=== PATIENT | male | born 1940 | race Caucasian/White ===

== ENCOUNTER 2017-04-12 13:00 | Outpatient (RCR) | payer MEDICARE, BC ==
--- NOTE | 2017-02-02 10:04 | PT PLAN OF CARE ---
Physician: NELY Dowling Patient is being seen:2x/Week Therapist: Greer Waterman, PT, DPT, CLT Medical Diagnosis: Mesothelioma of Lungs, Prostate Cancer Treatment Diagnosis: Mesothelioma of Lungs, Prostate Cancer Date of Onset: 10/30/16 Date of Initial Evaluation: 11/02/16 Date patient was last seen: 02/01/17 Number of treatments: 17 Number of cancellations/No shows: 3 INTERVENTIONS: Manual Therapy/STM/MET Strengthening/condition Ice/Heat Range of Motion Spinal Stabilization Ultrasound Stretching Iontophoresis Neuromuscular Re-ed Closed Chain Program Electrical Stim Posture/Body mechanics Gait Trg/Balance Trg Biofeedback Home Exercise Program Mech./Manual Traction Therapeutic Activities Pelvic Floor GOALS: In 3 weeks pt will increase 6 min walk distance to >250 meters indicating increased functional endurance for ADL's and decreased fatigue. In Progress In 6 weeks pt will increase 6 min walk distance to >350 meters indicating increased functional endurance for ADL's and decreased fatigue. In Progress In 6 weeks pt will maintain and increase B LE strength at > 5/5 for all major muscle groups for increased ability to perform ADL's. MET PATIENT'S GOAL:Maintain function throughout oncology treatment, decrease fatigue. Maintain current weight Status of Patient's Goals: In Progress Patient Compliance: Good Prognosis: Good Reasons for continuing therapy: Nate shows good improvement with maintaining oxygen saturation >75 with continual exercise at low-moderate intensities. Pt recovery time is quicker regarding oxygen saturation though HR recovery remains slow. Endurance, strength and stability with ADL's and ambulation shows improvements, but are dependent on oxygen levels. Posture: Posture unremarkable. ROM: WFL. Strength: UE MMT: 5/5 for all major muscle groups B. LE MMT: 5/5 for all major muscle groups B Objective: Pt O2 fluctuating throughout session from 73%-94% associated with pt fatigue. If you have any questions or concerns, please feel free to contact me at . Thank you, Greer Waterman, PT, DPT, CLT MTDD
[~2017-04-12 13:00] MED LIST: ACET-1966 PO; ACET-3079 PO; ALB0.5 IH; ALBU0.636 IH; ALBU8.5H12 IH; AMOX-362 PO; ASPI-757 PO; ASPI-816 PO; ATOR20TA22 PO; ATOR20TA65 PO; AZIT-1 PO; BIFI4CAP2 PO; CEP500 PO; CYAN1000 IJ; CYAN1LOZ2 SL; DEX4 FT; DEX4 PO; DIGO250T80 PO; DILT-106 PO; DRON2.5C11 PO; ESOM40CA42 PO; FLUT1DIS28 IH; FOLI-68 PO; FURO-47 PO; FURO40TA35 PO; GUAI1200 PO; LEV500 PO; LEVO750T44 PO; LOR1 PO; LOR75 PO; LORA-1456 PO; MAGN250T26 PO; NO ROUTINE MEDS; OND4 PO; PANT40TA65 PO; POTA20TA94 PO; PRED-1 PO; PROC25SU3 PO; PYRI100T57 PO; RANI150C17 PO; RIVA20TA PO; SIM10 PO; TAMS0.4C25 PO; TIO18R INH; UMEC1DIS PO
== END 2017-04-12 18:00 | disposition home or self-care (01) ==
LOC: PT 13:00
PROVIDERS: ATTEND Nurse Practitioner Family
DX: M62.81 Muscle weakness (generalized) (principal); R53.83 Other fatigue; C45.0 Mesothelioma of pleura; C61 Malignant neoplasm of prostate; R63.4 Abnormal weight loss; G62.9 Polyneuropathy, unspecified; Z92.3 Personal history of irradiation; Z92.21 Personal history of antineoplastic chemotherapy; R06.02 Shortness of breath; Z99.81 Dependence on supplemental oxygen

== ENCOUNTER 2017-05-31 09:13 | Outpatient (RCR) | payer MEDICARE, BC ==
[2017-03-19 11:01] VITALS: BP 126/81
--- NOTE | 2017-03-19 16:20 | RADIOLOGY IMAGING REPORT ---
FACILITY: [facility] [place] PATIENT NAME: Nate Mathew : 1940 MR: [id number] V: [id number] EXAM DATE: ORDERING PHYSICIAN: NEIDA PENNY TECHNOLOGIST: Location: [facility] Patient: Nate Mahtew : 1940 Visit/Account:[id number] Date of Sevice: 03/19/2017 CT angiogram chest with contrast Indication: Mesothelioma. Decreased oxygen saturation. Comparison: 09/22/2013. CT the chest from [facility] on 02/15/2017. Technique: Axial CT images are obtained through the chest after administration of 100 mL Isovue 370 I V contrast. Reformatted coronal and sagittal images were reviewed as well as coronal MIP images. One of the following dose optimization techniques was utilized in the performance of this exam: auto mated exposure control; adjustment of the mA and/or kV according to the patient's size; or use of an iterative reconstruction technique. Specific details can be referenced in the facility's radiology C T exam operational policy. FINDINGS: No evidence of filling defect within the pulmonary vasculature to suggest pulmonary embolus. Heart is normal size without pericardial effusion. Mild coronary artery calcifications. The aorta arias ws mild atherosclerotic calcific changes without aneurysm or dissection. Right hilar region shows a 2 .3 x 1.7 cm lymph nodes which appears relatively stable. The mediastinum and hilar show a few small l ymph nodes which appears stable as well including the right pretracheal lymph node measuring 2.0 x 0. 9 cm. No new or enlarged lymph nodes. The lungs again show diffuse emphysematous changes. There is mild right basal atelectasis. No focal c onsolidation, pleural effusion or pneumothorax. There are scattered pleural calcifications again iden tified without discrete pleural based masses. No focal interstitial opacity. The left lung, along the fissure, measuring 4.5 mm and is stable. This is seen on image #50. The other previously described n odules are not well appreciated on this exam. The airways are clear. The bony structures show no acute fracture or discrete lesions. Chest wall shows no enlarged axillary lymph nodes or masses. Stable right adrenal gland nodule measuring 1.6 cm. The upper abdomen is otherwise unremarkable. IMPRESSION: 1. No evidence of pulmonary embolus. 2. No acute cardiothoracic abnormality 3. Mild right basal atelectasis, relatively stable. There is continued bilateral pleural calcificatio ns. No discrete pleural based masses. Stable small adenopathy in the mediastinum and hilar regions. 4. Stable right adrenal gland nodule. 5. Stable left lung nodule. The other nodules described are not appreciated on this exam. I called report to NEIDA PENNY at 03/19/2017 4:15 PM. Report Dictated By: Gopal Sarmiento at 03/19/2017 3:58 PM Report E-Signed By: Gopal Sarmiento at 03/19/2017 4:16 PM WSN:[id number]
--- NOTE | 2017-03-22 19:12 | [facility] ONCOLOGY NOTE ---
DATE OF VISIT: March 19, 2017 CHIEF COMPLAINT/REASON FOR VISIT Mr. Mathew is a pleasant 77-year-old gentleman with mesothelioma responding to pembrolizumab (cycle eight scheduled for 10 days from now), here with hypoxia, shortness of breath. HISTORY OF PRESENT ILLNESS Mr. Mathew returns. He had imaging approximately four weeks ago for his seventh cycle of pembrolizumab, which showed response to therapy. This was quite encouraging. Today he presents with hypoxia with his oxygen saturation of 74% on 3L, up to 90% on 6L. He has known COPD. He receives the pembrolizumab and feels better for about a week, but then progressively worsens during his two off weeks. This suggests a potential need for steroids. However , given his current cancer and the extreme low level of hypoxia despite his home oxygen, I believe he needs to go to the emergency room for further evaluation to rule out pulmonary emboli, pneumonia or other issue. In the week preceding this visit today he felt like he was getting a cold, but then it has worsened today. He felt short of breath with some chest tightness when he came in. This resolved with rest. ONCOLOGIC HISTORY His oncologic history is remarkable for a [place] 6 prostate cancer diagnosed in 2007, treated with seed implants, external beam radiation therapy. On 2 separate events he had a slight rise in his PSA and we will follow this. He has COPD and continues on 3L of O2 by nasal cannula. No other concerns today. PAST MEDICAL/SURGICAL HISTORIES 1. Mesothelioma of the lung, status post five cycles of carboplatin and pemetrexed, and talc pleurodesis. 2. Macrocytosis. 3. COPD. 4. Renal insufficiency. 5. [place] 6 prostate cancer treated with radiation. He had a rising PSA in 2011 and received additional radiation. 6. Hypercholesterolemia. 7. Former smoker. FAMILY HISTORY Remarkable for prostate cancer and lymphoma. SOCIAL HISTORY The patient is . He presented with his today. 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 He used to work in the [employer] as well. REVIEW OF SYSTEMS CONSTITUTIONAL: No fevers, chills, but felt he has been fighting a cold, with clear drainage, for the last week. SKIN: Athlete's foot resolved. No concerning lesions HEENT: No headache. He does have visual changes consistent with macular degeneration, particularly in the right eye. CARDIOVASCULAR: No chest pain, dyspnea on exertion or edema. RESPIRATORY: No shortness of breath, wheeze, cough out of the ordinary. He does have chronic respiratory issues, on oxygen. He does feel he is needing more oxygen now than he did six months ago. His lungs are very clear on exam, however. GASTROINTESTINAL: No nausea, vomiting. GENITOURINARY: No dysuria or hematuria. MUSCULOSKELETAL: No weakness or significant joint pain. PSYCHIATRIC: No anxiety or depression. ENDOCRINE: No heat or cold intolerance. PHYSICAL EXAMINATION VITAL SIGNS: Blood pressure 126/81. Pulse 93 after rest. It was 102 upon initial presentation to the clinic. Respiratory rate 18, temperature 96.9 Fahrenheit, oxygen saturation 90% on 6L, 74% on 3L. Weight 97.4 kg, fatigue 5/ 10, pain 0/10. GENERAL: In stable condition, resting comfortably in the chair. Chronically ill-appearing gentleman. HEENT: Normocephalic, atraumatic. LUNGS: Clear. Prolonged expiratory phase with some mild use of accessory muscles with deep inspiration. He felt better on 6L, but still needed to go to the emergency room to rule out PE or other causes. He may require some neb steroids for COPD or systemic steroids. In that case I would defer to Dr. West to assess and prescribe what is needed for his COPD. His imaging suggests he is responding, so I do not believe this is related to cancer or its treatment. CARDIOVASCULAR: Borderline tachycardia. ABDOMEN: Soft, nontender. EXTREMITIES: No significant edema. The remainder of the physical exam is unremarkable. IMPRESSION AND PLAN Mr. Mathew is a very pleasant 77-year-old gentleman with the followin. Distant history of prostate cancer. 2. Recurrent mesothelioma on pembrolizumab. Cycle eight is later this month. He had received chemotherapy with carboplatin and pemetrexed in 2012, as well as radiation in early 2017. He is responding on imaging in [place] 2017. 3. Chronic obstructive pulmonary disease on chronic O2 with a potential COPD exacerbation today. Sent to the ER. 4. Chronic mild renal insufficiency. I answered all of his questions today. He needs to go to the ER currently. We will see him back in clinic in 10 days, hopefully for his next dose. I think most likely this is a COPD exacerbation, but would consider trying to rule out PE. We recommend followup with his primary care for his COPD. I answered all of his questions today. Billing: Return visit level 5. Total time 45 minutes, counseling time 30. High risk, high complexity. SEAN
[2017-03-29 10:58] LABS: PLATELET COUNT, AUTOMATED 209 K/uL (150-450)
[2017-03-29 11:07] VITALS: BP 107/80
[2017-03-29] MEDS: NS(*) 0.9% 100 ML BAG 100 ML IVPB PRN (11:26)
[2017-03-29] MEDS: LIDOCAINE/SOD BICARB 8.4% SYR ID PRN (11:26)
--- NOTE | 2017-03-29 11:40 | ONC Progress Note - NP.Halsey ---
Patient History Date of Service Mar 29, 2017 Reason For Visit/HPI Patient is seen in the clinic today with his for follow-up of his mesothelioma. Patient is currently receiving Keytruda and will receive cycle 8 today. Patient was seen in the emergency room one week ago for hypoxia and shortness of breath. CT angiogram was without evidence of a clot. Patient was started on antibiotic therapy. He reports that he is feeling better today. He always has shortness of breath but this is improved from last week. Patient asks with the plan of care is long-term. I shared with him that maintenance of disease and possibly shrinking disease would be the long-term goal. He verbalized understanding. Patient continues to have internal itching which is a side effect of the Keytruda. He is currently taking Claritin which helps some. The itching moves from one area to another in his body. He has no external rash. Problem List (1) Mesothelioma Oncology History Recurrent mesothelioma currently on Keytruda. Patient received chemotherapy with carboplatin and pemetrexed in 2012, as well as radiation therapy in 2016. Patient follows with Dr. Kiser. Distant history of prostate cancer, [place] 6 diagnosed in 2007. Patient completed brachytherapy seed implant and external beam radiation therapy on 2 separate events he had an elevation of the PSA. We will continue to monitor Medical History Family History: FH: lymphoma BROTHER OR SISTER, , Onset:43 FH: prostate cancer FATHER, , Onset:71 BROTHER OR SISTER, Onset:64 Psychosocial History Smoking History: Yes Smoking Status: Former Smoker Exposure to Second Hand Smoke?: No When Quit Tobacco?: 12-14 years ago Medications and Allergies Active Scripts Levofloxacin 750 Mg Tab (LEVAQUIN 750 MG TAB) 750 Mg Tablet, 750 MG PO ONCE for 7 Days, TAB Prov:MILAGROS KRISHNAMURTHY MD 03/19/17 Umeclidinium Brm/Vilanterol Tr (Anoro Ellipta 62.5-25 Mcg INH) 1 Each Disk.w.dev , 65.2 MCG PO DAILY for 60 Days, #120 MG 6 Refills Prov:FOREIGN GUERRERO LOBBY CONCIERGE-BC, ONC 02/14/17 Lorazepam (LORAZEPAM) 1 Mg Tab, 1 TAB PO PRN Y for ANXIETY, #60 TAB Prov:ANKIT RENEE MD 06/22/15 Folic Acid (FOLIC ACID) 1 Mg Tablet, 1 MG PO DAILY, #90 TAB 3 Refills Prov:ANKIT RENEE MD 12/17/14 Albuterol Sulfate (ALBUTEROL SULFATE) 2.5 Mg/0.5 Ml Vial.neb, 2.5 MG IH Q6H, #30 Prov:MILADYS HUANG DO 09/22/13 Reported Medications Pantoprazole Sodium (PANTOPRAZOLE SODIUM) 40 Mg Tablet.dr, 40 MG PO QDAY, TAB.SR 06/19/16 Guaifenesin (MUCINEX) 1,200 Mg Tbmp.12hr, 1200 MG PO PRN 03/23/15 Aspirin (Children's Aspirin) 81 Mg Tab.chew, 1 TAB PO BID 03/23/15 Atorvastatin Calcium (ATORVASTATIN CALCIUM) 20 Mg Tablet, 1 TAB PO QDAY, TAB 03/23/15 Albuterol Sul Hfa 90 Mcg 8 Gm (VENTOLIN HFA 90 MCG 8 GM) 8.5 Gm Hfa.aer.ad, 2 PUFF IH Q6H 09/22/13 Bifidobacterium Infantis (ALIGN) 4 Mg Capsule, 4 MG PO QDAY, CAPSULE 05/02/13 Acetaminophen (TYLENOL) 325 Mg Tablet, 325-650 MG PO Q6H Y for PAIN Take as needed for mild pain relief 03/07/13 Pyridoxine Hcl (VITAMIN B-6) 100 Mg Tablet, 100 MG PO BID 10/31/12 Tamsulosin Hcl (FLOMAX) 0.4 Mg Cap.er.24h, 0.4 MG PO QODAY 09/25/12 Allergies: Coded Allergies: No Known Allergies (Verified Allergy, Unknown, 03/19/17) Review of System/Physical Exam Review of Systems All Systems Reviewed/Normal: Yes, Except as Noted Constitutional: Positive for Fever/Chills/Sweating (patient recently completed antibiotic therapy for a pneumonitis) Respiratory: Positive for Shortness of Breath (currently on oxygen therapy) Hematologic: Positive for Fatigue, Positive for Weakness Musculoskeletal: Positive for Other (previous back pain has resolved) Skin: Positive for Other (itching of the skin which is a side effect of Keytruda without evidence of a skin rash) Physical Exam Vital Signs Temperature: 97.7 Pulse: 65 BP Systolic: 107 BP Diastolic: 80 Respiratory Rate: 16 O2 SAT: 95 O2 Delivery: Nasal Cannula Height (inches) 71.00 Weight lb: 209 Weight oz: 2.0 Weight Kg (Vance): 98.03 Pain: 0 ECOG Score: 1 General: Stable, Well Developed, Well Nourished, Not In Acute Distress HEENT: No Trauma, No Conjunctivitis, No Icterus, No Mucositis, No Oral Thrush Neck: Supple Lungs: Clear to Auscultation Heart: Regular Rate, Regular Rhythm, No Gallops Abdomen: Soft and Nontender, No Hepatosplenomegaly, No Masses Extremities: No Cyanosis, No Clubbing, No Edema Lymphadenopathy: No Cervical, No Subclavicular Psychiatric: Mood appears normal, Affect appears normal Skin: No Skin Rashes, No Bruising, No Purpura Diagnostic Studies Diagnostic Studies Laboratory Laboratory Tests 03/29/17 10:45 Laboratory Tests 03/19/17 00:00: Urine Color Yellow, Urine Clarity Clear, Urine pH 5.0, Urine Specific [place] 1.036, Urine Protein Negative, Urine Glucose (UA) Negative, Urine Ketones Negative, Urine Blood Negative, Urine Nitrite Negative, Urine Bilirubin Negative , Urine Urobilinogen Negative, Urine Leukocyte Esterase Negative, Urine RBC 6, Urine WBC <1, Urine Squamous Epithelial Cells None, Urine Bacteria Negative, Urine Mucus Few 03/29/17 10:45: White Blood Count 7.3, Red Blood Count 4.17, Hemoglobin 14.8, Hematocrit 42.4, Mean Corpuscular Volume 101.6, Mean Corpuscular Hemoglobin 35.4, Mean Corpuscular Hemoglobin Concent 34.8, Red Cell Distribution Width 13.9, Platelet Count 209, Mean Platelet Volume 7.7, Neutrophils (%) (Auto) 77.3, Lymphocytes (% ) (Auto) 13.0, Monocytes (%) (Auto) 5.3, Eosinophils (%) (Auto) 3.0, Basophils ( %) (Auto) 1.4, Nucleated RBC Relative Count (auto) 0.0, Neutrophils # (Auto) 5.6 , Lymphocytes # (Auto) 0.9, Monocytes # (Auto) 0.4, Eosinophils # (Auto) 0.2, Basophils # (Auto) 0.1, Nucleated RBC Absolute Count (auto) 0.00, Peripheral Blood Smear No, Sodium Level 137, Potassium Level 4.0, Chloride Level 104, Carbon Dioxide Level 22, Blood Urea Nitrogen 22, Creatinine 1.20, Glomerular Filtration Rate Calc 58.9, Random Glucose 99, Calcium Level 8.9, Magnesium Level 1.9, Total Bilirubin 0.8, Aspartate Amino Transf (AST/SGOT) 31, Alanine Aminotransferase (ALT/SGPT) 37, Alkaline Phosphatase 130, Total Protein 7.2, Albumin 3.7, Free Thyroxine 1.34 Assessment and Plan Assessment & Plan Mr. Mathew is a very pleasant 77-year-old gentleman with the followin. Distant history of prostate cancer status post brachytherapy seed implant and external beam radiotherapy. PSA in December was 1.79, prior to that was 1.38. We'll continue to monitor and draw PSA with his next labs. Patient will be seen with his next treatment 2. Recurrent mesothelioma on pembrolizumab. Cycle eight is later this month. He had received chemotherapy with carboplatin and pemetrexed in 2012, as well as radiation in early 2016. He is responding on imaging in 2016. Patient is scheduled to follow with Dr. Kiser on April 19 and will receive Keytruda on April 20. 3. Chronic obstructive pulmonary disease on chronic O2 with a potential COPD exacerbation. Patient recently completed antibiotic therapy. CT angiogram was unremarkable other then previously known disease 4. Chronic mild renal insufficiency. This is monitored with his chemistry panel prior to treatment I personally spent a total of 20 minutes. Of that 15 minutes was counseling/ coordination of patient's care. See my note above for details. Copies to: CORETTA GUAMAN MD, NANCY J LOBBY CONCIERGE-BC, ONC Mar 29, 2017 11:40
[2017-03-29 12:07] VITALS: BP 119/68
[2017-04-20 09:56] VITALS: BP 125/74
[2017-04-20] MEDS: LIDOCAINE/SOD BICARB 8.4% SYR ID PRN (10:56)
--- NOTE | 2017-04-20 10:56 | ONC Progress Note - NP.Halsey ---
Patient History Date of Service Apr 20, 2017 Reason For Visit/HPI Patient is seen in the clinic today with his for follow-up of his mesothelioma. Patient is currently receiving Keytruda and will receive cycle 9 today. Patient shares that he recently followed with Dr. Kiser in [place] and the plan of care is to continue with the same treatment. Patient reports that CT scan showed a slight improvement in his overall disease. Patient verbalized understanding that treatment with Keytruda is a very slow process. Patient reports that he is currently on 4 L of oxygen and is having shortness of breath. He is not sure if this is increased. He did have upper respiratory symptoms approximately 3 weeks ago. Patient denies any symptoms from Keytruda other than internal itching without any extranodal rash. Patient continues to take Claritin with some relief. Problem List (1) Mesothelioma Oncology History Recurrent mesothelioma currently on Keytruda. Patient received chemotherapy with carboplatin and pemetrexed in 2012, as well as radiation therapy in 2016. Patient follows with Dr. Kiser. Distant history of prostate cancer, Narcisa 6 diagnosed in 2007. Patient completed brachytherapy seed implant and external beam radiation therapy on 2 separate events he had an elevation of the PSA. We will continue to monitor Medical History Family History: FH: lymphoma BROTHER OR SISTER, , Onset:43 FH: prostate cancer FATHER, , Onset:71 BROTHER OR SISTER, Onset:64 Psychosocial History Social History Patient is and is retired. Alcohol History He denies any abuse Recreational Drug History He denies use Smoking History: Yes Smoking Status: Former Smoker Exposure to Second Hand Smoke?: No When Quit Tobacco?: 12-14 years ago Medications and Allergies Active Scripts Levofloxacin 750 Mg Tab (LEVAQUIN 750 MG TAB) 750 Mg Tablet, 750 MG PO ONCE for 7 Days, TAB Prov:MILAGROS KRISHNAMURTHY MD 03/19/17 Umeclidinium Brm/Vilanterol Tr (Anoro Ellipta 62.5-25 Mcg INH) 1 Each Disk.w.dev , 65.2 MCG PO DAILY for 60 Days, #120 MG 6 Refills Prov:FOREIGN GUERRERO GASOLINE FINISHER-BC, ONC 02/14/17 Lorazepam (LORAZEPAM) 1 Mg Tab, 1 TAB PO PRN Y for ANXIETY, #60 TAB Prov:NAKIT RENEE MD 06/22/15 Folic Acid (FOLIC ACID) 1 Mg Tablet, 1 MG PO DAILY, #90 TAB 3 Refills Prov:ANKIT RENEE MD 12/17/14 Albuterol Sulfate (ALBUTEROL SULFATE) 2.5 Mg/0.5 Ml Vial.neb, 2.5 MG IH Q6H, #30 Prov:MILADYS HUANG DO 09/22/13 Reported Medications Pantoprazole Sodium (PANTOPRAZOLE SODIUM) 40 Mg Tablet.dr, 40 MG PO QDAY, TAB.SR 06/19/16 Guaifenesin (MUCINEX) 1,200 Mg Tbmp.12hr, 1200 MG PO PRN 03/23/15 Aspirin (Children's Aspirin) 81 Mg Tab.chew, 1 TAB PO BID 03/23/15 Atorvastatin Calcium (ATORVASTATIN CALCIUM) 20 Mg Tablet, 1 TAB PO QDAY, TAB 03/23/15 Albuterol Sul Hfa 90 Mcg 8 Gm (VENTOLIN HFA 90 MCG 8 GM) 8.5 Gm Hfa.aer.ad, 2 PUFF IH Q6H 09/22/13 Bifidobacterium Infantis (ALIGN) 4 Mg Capsule, 4 MG PO QDAY, CAPSULE 05/02/13 Acetaminophen (TYLENOL) 325 Mg Tablet, 325-650 MG PO Q6H Y for PAIN Take as needed for mild pain relief 03/07/13 Pyridoxine Hcl (VITAMIN B-6) 100 Mg Tablet, 100 MG PO BID 10/31/12 Tamsulosin Hcl (FLOMAX) 0.4 Mg Cap.er.24h, 0.4 MG PO QODAY 09/25/12 Allergies: Coded Allergies: No Known Allergies (Verified Allergy, Unknown, 03/19/17) Review of System/Physical Exam Review of Systems All Systems Reviewed/Normal: Yes, Except as Noted Respiratory: Positive for Shortness of Breath (currently on 4 L per nasal cannula), Positive for Wheezing (occasional episodes) Hematologic: Positive for Fatigue (related to inactivity. He rates as a 6 out of 10 today which is relatively stable. Patient previously had been doing physical therapy and will try to do exercise on his own as he does feel better after he exercises.) Psychiatric: Depression (patient reports that he has had increased depression symptoms and Dr. Kiser has started him on a new medication.) Skin: Positive for Other (itching of the skin which is a side effect of Keytruda without evidence of a skin rash) Physical Exam Vital Signs Temperature: 97.0 Pulse: 79 BP Systolic: 125 BP Diastolic: 74 Respiratory Rate: 16 O2 SAT: 90 O2 Delivery: Nasal Cannula Height (inches) 72.00 Weight lb: 214 Weight oz: 2.0 Weight Kg (Vance): 98.03 Pain: 6 ECOG Score: 1 General: Stable, Well Developed, Well Nourished, Not In Acute Distress HEENT: No Trauma, No Conjunctivitis, No Icterus, No Mucositis Neck: Supple Lungs: Clear to Auscultation (breast sounds are slightly diminished in all lung hall with expiratory wheezing in all lung hall) Extremities: No Cyanosis, No Clubbing, No Edema Lymphadenopathy: No Cervical Psychiatric: Mood appears normal, Affect appears normal Skin: No Skin Rashes, No Bruising, No Purpura Diagnostic Studies Diagnostic Studies Laboratory Laboratory Tests 04/20/17 10:00 Laboratory Tests 03/19/17 00:00: Urine Color Yellow, Urine Clarity Clear, Urine pH 5.0, Urine Specific [place] 1.036, Urine Protein Negative, Urine Glucose (UA) Negative, Urine Ketones Negative, Urine Blood Negative, Urine Nitrite Negative, Urine Bilirubin Negative , Urine Urobilinogen Negative, Urine Leukocyte Esterase Negative, Urine RBC 6, Urine WBC <1, Urine Squamous Epithelial Cells None, Urine Bacteria Negative, Urine Mucus Few 03/29/17 10:45: Red Blood Count 4.17, Mean Corpuscular Volume 101.6, Mean Corpuscular Hemoglobin 35.4, Mean Corpuscular Hemoglobin Concent 34.8, Red Cell Distribution Width 13.9, Mean Platelet Volume 7.7, Monocytes (%) (Auto) 5.3, Eosinophils (%) (Auto) 3.0, Basophils (%) (Auto) 1.4, Nucleated RBC Relative Count (auto) 0.0, Monocytes # (Auto) 0.4, Eosinophils # (Auto) 0.2, Basophils # (Auto) 0.1, Nucleated RBC Absolute Count (auto) 0.00, Peripheral Blood Smear No 04/20/17 10:00: White Blood Count 8.0, Hemoglobin 14.7, Hematocrit 42.5, Platelet Count 204, Neutrophils (%) (Auto) 75.3, Lymphocytes (%) (Auto) 11.9, Neutrophils # (Auto) 6.0, Lymphocytes # (Auto) 1.0, Sodium Level 137, Potassium Level 3.8, Chloride Level 104, Carbon Dioxide Level 25, Blood Urea Nitrogen 25, Creatinine 1.10, Glomerular Filtration Rate Calc > 60.0, Random Glucose 115, Calcium Level 9.2, Magnesium Level 1.9, Total Bilirubin 0.9, Aspartate Amino Transf (AST/SGOT) 34, Alanine Aminotransferase (ALT/SGPT) 38, Alkaline Phosphatase 123, Total Protein 7.5, Albumin 3.9 Assessment and Plan Assessment & Plan Mr. Mathew is a very pleasant 77-year-old gentleman with the followin. Distant history of prostate cancer status post brachytherapy seed implant and external beam radiotherapy. PSA in December was 1.79, prior to that was 1.38. We'll continue to monitor. 2. Recurrent mesothelioma on pembrolizumab. Cycle 9 day. He had received chemotherapy with carboplatin and pemetrexed in 2012, as well as radiation in early 2016. He is responding on imaging completed in and 2017. Patient followed with Dr. Kiser on April 19 with a recommendation to continue Keytruda as his plan of care. Patient will follow with Dr. Kiser in 9 weeks. 3. Chronic obstructive pulmonary disease on chronic O2 with a potential COPD exacerbation. Symptoms remain stable today on exam. Patient is on 4 L of oxygen per nasal cannula 4. Chronic mild renal insufficiency. This is monitored with his chemistry panel prior to treatment and remains within normal limits today. I personally spent a total of 20 minutes. Of that 15 minutes was counseling/ coordination of patient's care. See my note above for details. FOREIGN GUERRERO GASOLINE FINISHER-BC, ONC Apr 20, 2017 10:56
[2017-04-20] MEDS: NS(*) 0.9% 100 ML BAG 100 ML IVPB PRN (10:57)
[2017-04-20 11:45] VITALS: BP 120/66
[2017-05-07 10:01] VITALS: BP 124/75
--- NOTE | 2017-05-08 19:30 | ONCOLOGY FOLLOW UP NOTE ---
EVENT DATE: May 07, 2017 CHIEF COMPLAINT/REASON FOR VISIT Mr. Mathew is a pleasant 77-year-old gentleman, with mesothelioma responding to pembrolizumab, here for followup. HISTORY OF PRESENT ILLNESS Mr. Mathew returns. He is due for cycle 10 later this week. He had imaging recently which showed response to therapy, and then some slight improvement since then. It is not unusual to have slow response to immunotherapy. When he receives the pembrolizumab he feels better for about a week, which suggests a possible need for steroids. However, we want to minimize the use of steroids to avoid interfering with the immune therapy. Overall he is doing well today and continues on oxygen 4-6L daily. ONCOLOGIC HISTORY His oncology history is remarkable for a Narcisa 6 prostate cancer diagnosed in 2007, treated with seed implants, external beam radiation therapy. On two separate events he has had a slight rise in the PSA and we can follow this. He was diagnosed with mesothelioma status post five cycles of carboplatin and pemetrexed as well as talc pleurodesis. Relapse in 2016 and treated with pembrolizumab immunotherapy. PAST MEDICAL/SURGICAL HISTORY 1. COPD on 4-6L of oxygen. 2. Macrocytosis. 3. Mesothelioma. 4. Renal insufficiency. 5. History of [place] 6 prostate cancer. Received radiation on two separate occludes, with the external beam radiation therapy being in 2011. 6. Hypercholesterolemia. 7. Former smoker. FAMILY HISTORY: Remarkable for prostate cancer and lymphoma. SOCIAL HISTORY: Patient is and has presented with his today. 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 REVIEW OF SYSTEMS CONSTITUTIONAL: No fevers, chills, significant weight change. No recent infections for the past two to three weeks. HEENT: No headache or vision changes. CARDIOVASCULAR: No chest pain, dyspnea on exertion or edema. RESPIRATORY: No shortness of breath, wheeze, cough. SKIN: Prior tinea infection, resolved. GASTROINTESTINAL: No nausea, vomiting. GENITOURINARY: No dysuria or hematuria. MUSCULOSKELETAL: No weakness or joint pain. PSYCHIATRIC: No anxiety or depression. ENDOCRINE: No heat or cold intolerance. NEUROLOGIC: No deficits. No numbness. The remainder of the 14-point review of systems is otherwise negative. PHYSICAL EXAMINATION VITAL SIGNS: Blood pressure 124/75, pulse 95, respiratory rate 18, temperature 96.6 Fahrenheit, oxygen saturation 90% on 4L. Weight 99 kg. Pain 0/10, fatigue 0/10. GENERAL: In stable condition, resting comfortably in the chair. HEENT: Normocephalic, atraumatic. CARDIOVASCULAR: Regular rate and rhythm. LUNGS: Clear. Prolonged expiratory phase. I do believe the breath sounds at the bases are improved compared to months ago prior to his treatment. ABDOMEN: Soft, nontender. EXTREMITIES: No clubbing, cyanosis or edema. Remainder of physical exam unremarkable. IMPRESSION AND PLAN Mr. Mathew is a very pleasant 77-year-old gentleman with the followin. Distant history of Narcisa 6 prostate cancer. 2. Recurrent mesothelioma on pembrolizumab. Cycle 10 is later this week. He had also received chemotherapy with carboplatin and pemetrexed in 2012, as well as radiation in early 2016. Evidence of some response on recent imaging in [place]. Has followup with Dr. Kiser later in the winter. 3. Chronic obstructive pulmonary disease. Recent exacerbation from infection resolved. 4. Chronic mild renal insufficiency. Overall Mr. Mathew is doing well today, much better than when I saw him six weeks ago. We will continue to see him in cycle visits with either myself or Shital Mix. Answered all of his questions today. Billing: Return visit level 4. Total time 30 minutes, counseling time 20. High risk, high complexity. MTDD
[2017-05-10 10:37] VITALS: BP 93/69
[2017-05-10] MEDS: NS(*) 0.9% 100 ML BAG 100 ML IVPB PRN (12:04)
--- NOTE | 2017-05-10 14:40 | ONC Progress Note - NP.Halsey ---
Patient History Date of Service May 10, 2017 Reason For Visit/HPI Patient is seen in the clinic today with his for follow-up of his mesothelioma. Patient is currently receiving Keytruda every 21 days. Patient shares that he recently followed with Dr. Kiser in [place] and the plan of care is to continue with the same treatment. Patient reports that CT scan showed a slight improvement in his overall disease. Patient verbalized understanding that treatment with Keytruda is a very slow process. Patient reports that he is currently on 4 L of oxygen. He feels that he has a decrease in shortness of breath after completing Keytruda and then the week prior to receiving Keytruda he experiences an increase in shortness of breath. Today he reports that he is feeling nauseous. He woke this morning feeling that he was unable to eat and that he was going to have emesis however he has not. He denies any fever or chills today but has generalized body aches and does not feel well. He has not been exposed to anyone who is been sick to his knowledge. He would like to go ahead and complete treatment today but requests if we could give him something for nausea. Problem List (1) Nausea and vomiting in adult (2) Prostate cancer (3) Acute exacerbation of chronic obstructive airways disease (4) Mesothelioma of lung Oncology History Recurrent mesothelioma currently on Keytruda. Patient received chemotherapy with carboplatin and pemetrexed in 2012, as well as radiation therapy in 2016. Patient follows with Dr. Kiser. Distant history of prostate cancer, [place] 6 diagnosed in 2007. Patient completed brachytherapy seed implant and external beam radiation therapy on 2 separate events he had an elevation of the PSA. We will continue to monitor Medical History Family History: FH: lymphoma BROTHER OR SISTER, , Onset:43 FH: prostate cancer FATHER, , Onset:71 BROTHER OR SISTER, Onset:64 Psychosocial History Social History Patient is and is retired. Alcohol History He denies any abuse Recreational Drug History He denies use Smoking History: Yes Smoking Status: Former Smoker Exposure to Second Hand Smoke?: No When Quit Tobacco?: 12-14 years ago Medications and Allergies Active Scripts Umeclidinium Brm/Vilanterol Tr (Anoro Ellipta 62.5-25 Mcg INH) 1 Each Disk.w.dev , 65.2 MCG PO DAILY for 60 Days, #120 MG 6 Refills Prov:FOREIGN GUERRERO DIGITAL COMMUNITY MANAGER-BC, ONC 02/14/17 Lorazepam (LORAZEPAM) 1 Mg Tab, 1 TAB PO PRN Y for ANXIETY, #60 TAB Prov:ANKIT RENEE MD 06/22/15 Folic Acid (FOLIC ACID) 1 Mg Tablet, 1 MG PO DAILY, #90 TAB 3 Refills Prov:ANKIT RENEE MD 12/17/14 Albuterol Sulfate (ALBUTEROL SULFATE) 2.5 Mg/0.5 Ml Vial.neb, 2.5 MG IH Q6H, #30 Prov:MILADYS HUANG DO 09/22/13 Reported Medications Pantoprazole Sodium (PANTOPRAZOLE SODIUM) 40 Mg Tablet.dr, 40 MG PO QDAY, TAB.SR 06/19/16 Guaifenesin (MUCINEX) 1,200 Mg Tbmp.12hr, 1200 MG PO PRN 03/23/15 Aspirin (Children's Aspirin) 81 Mg Tab.chew, 1 TAB PO BID 03/23/15 Atorvastatin Calcium (ATORVASTATIN CALCIUM) 20 Mg Tablet, 1 TAB PO QDAY, TAB 03/23/15 Albuterol Sul Hfa 90 Mcg 8 Gm (VENTOLIN HFA 90 MCG 8 GM) 8.5 Gm Hfa.aer.ad, 2 PUFF IH Q6H 09/22/13 Bifidobacterium Infantis (ALIGN) 4 Mg Capsule, 4 MG PO QDAY, CAPSULE 05/02/13 Acetaminophen (TYLENOL) 325 Mg Tablet, 325-650 MG PO Q6H Y for PAIN Take as needed for mild pain relief 03/07/13 Pyridoxine Hcl (VITAMIN B-6) 100 Mg Tablet, 100 MG PO BID 10/31/12 Tamsulosin Hcl (FLOMAX) 0.4 Mg Cap.er.24h, 0.4 MG PO QODAY 09/25/12 Discontinued Scripts Levofloxacin 750 Mg Tab (LEVAQUIN 750 MG TAB) 750 Mg Tablet, 750 MG PO ONCE for 7 Days, TAB Prov:MILAGROS KRISHNAMURTHY MD 03/19/17 Allergies: Coded Allergies: No Known Allergies (Verified Allergy, Unknown, 03/19/17) Review of System/Physical Exam Review of Systems All Systems Reviewed/Normal: Yes, Except as Noted Respiratory: Positive for Shortness of Breath Gastrointestinal: Nausea, Constipation (he reports having a bowel movement yesterday but no bowel movement today) Hematologic: Positive for Fatigue Psychiatric: Anxiety (patient has Ativan and we'll use it when he feels extremely anxious) Skin: Positive for Other (itching of the skin which is a side effect of Keytruda without evidence of a skin rash) Physical Exam Vital Signs Temperature: 97.5 Pulse: 77 BP Systolic: 93 BP Diastolic: 69 Respiratory Rate: 16 O2 SAT: 94 O2 Delivery: Nasal Cannula Height (inches) 71.00 Weight lb: 214 Weight oz: 2.0 Weight Kg (Vance): [id number] Pain: 0 ECOG Score: 2 General: Stable, Well Developed, Well Nourished, Not In Acute Distress Lungs: Clear to Auscultation (lung hall are decreased bilaterally but this is unchanged from previous examinations) Heart: Regular Rate, Regular Rhythm, No Gallops Abdomen: Soft and Nontender, No Hepatosplenomegaly Psychiatric: Mood appears normal, Affect appears normal, Other (patient gives the appearance that he is not feeling extremely well and requests and emesis bag.) Skin: No Skin Rashes, No Bruising, No Purpura Diagnostic Studies Diagnostic Studies Laboratory Laboratory Tests 05/10/17 10:35 05/10/17 10:46 Laboratory Tests 03/19/17 00:00: Urine Color Yellow, Urine Clarity Clear, Urine pH 5.0, Urine Specific [place] 1.036, Urine Protein Negative, Urine Glucose (UA) Negative, Urine Ketones Negative, Urine Blood Negative, Urine Nitrite Negative, Urine Bilirubin Negative , Urine Urobilinogen Negative, Urine Leukocyte Esterase Negative, Urine RBC 6, Urine WBC <1, Urine Squamous Epithelial Cells None, Urine Bacteria Negative, Urine Mucus Few 03/29/17 10:45: Red Blood Count 4.17, Mean Corpuscular Volume 101.6, Mean Corpuscular Hemoglobin 35.4, Mean Corpuscular Hemoglobin Concent 34.8, Red Cell Distribution Width 13.9, Mean Platelet Volume 7.7, Monocytes (%) (Auto) 5.3, Eosinophils (%) (Auto) 3.0, Basophils (%) (Auto) 1.4, Nucleated RBC Relative Count (auto) 0.0, Monocytes # (Auto) 0.4, Eosinophils # (Auto) 0.2, Basophils # (Auto) 0.1, Nucleated RBC Absolute Count (auto) 0.00, Peripheral Blood Smear No 04/20/17 10:00: Free Triiodothyronine 3.0 05/10/17 01:04: 05/10/17 10:35: White Blood Count 7.8, Hemoglobin 14.8, Hematocrit 42.4, Platelet Count 228, Neutrophils (%) (Auto) 81.0, Lymphocytes (%) (Auto) 12.5, Neutrophils # (Auto) 6.3, Lymphocytes # (Auto) 1.0 05/10/17 10:46: Sodium Level 134, Potassium Level 3.9, Chloride Level 101, Carbon Dioxide Level 19, Blood Urea Nitrogen 22, Creatinine 1.10, Glomerular Filtration Rate Calc > 60.0, Random Glucose 194, Calcium Level 8.9, Magnesium Level 1.7, Total Bilirubin 0.7, Aspartate Amino Transf (AST/SGOT) 31, Alanine Aminotransferase ( ALT/SGPT) 36, Alkaline Phosphatase 109, Total Protein 7.0, Albumin 3.7 Assessment and Plan Assessment & Plan Patient is seen in the clinic prior to treatment today with Keytruda. He does report that he feels nauseous today. He denies any fever or chills but has generalized fatigue. He is requesting something for his nausea. I will give him 8 mg of IV Zofran. Ration has the following history: 1. Distant history of prostate cancer status post brachytherapy seed implant and external beam radiotherapy. PSA in December was 1.79, prior to that was 1.38. We'll continue to monitor. 2. Recurrent mesothelioma on pembrolizumab. Cycle 10 day. He had received chemotherapy with carboplatin and pemetrexed in 2012, as well as radiation in early 2016. He is responding on imaging completed in [place] and 2017. Patient followed with Dr. Kiser on April 19 with a recommendation to continue Keytruda as his plan of care. Patient will follow with Dr. Kiser in 9 weeks. 3. Chronic obstructive pulmonary disease on chronic O2 with a potential COPD exacerbation. Symptoms remain stable today on exam. Patient is on 4 L of oxygen per nasal cannula 4. Chronic mild renal insufficiency. This is monitored with his chemistry panel prior to treatment and remains within normal limits today. 5. Acute nausea. Patient will receive Zofran today. I personally spent a total of 20 minutes. Of that 15 minutes was counseling/ coordination of patient's care. See my note above for details. FOREIGN GUERRERO DIGITAL COMMUNITY MANAGER-BC, ONC May 10, 2017 14:40
[~2017-05-31] VITALS: Ht 180.3 cm; Wt 95.6 kg
[~2017-05-31 09:13] MED LIST changes: +DEXTROSE 5%(*) 100 ML BAG 100 ML IVPB PRN; +IOPAMIDOL 76% 100 ML INFUS BTL 100 ML ONE; +NS 0.9% 50 ML VIAL 50 ML ONE; +ONDANSETRON 4 MG/2 ML VIAL IVP ONE; +PEMBROLIZUMAB 100 MG/4 ML SDV 200 MG in NS(*) 0.9% 50 ML BAG 50 ML IV ONE
[2017-05-31 09:18] VITALS: BP 130/72
[2017-05-31] MEDS: NS(*) 0.9% 100 ML BAG 100 ML IVPB PRN (09:37)
[2017-05-31 09:40] LABS: PLATELET COUNT, AUTOMATED 253 K/uL (150-450)
[2017-05-31] MEDS ORDERED: PEMBROLIZUMAB 100 MG/4 ML SDV 200 MG in NS(*) 0.9% 50 ML BAG 50 ML IV ONE (10:10)
[2017-05-31 11:10] VITALS: BP 142/73
--- NOTE | 2017-05-31 12:11 | ONC Progress Note - NP.Halsey ---
Patient History Date of Service May 31, 2017 Reason For Visit/HPI Patient is seen in the clinic today with his for follow-up of his mesothelioma. Patient is currently receiving Keytruda cycle 11 given every 21 days. Previous imaging completed with Dr. Kiser continued to show a response to therapy. Posttreatment patient has increased fatigue. Patient reports overall he is feeling stable and has no increased shortness of breath. He denies any fever or chills, no body aches. He remains on oxygen 4-6 L a day. He denies any cough or congestion. He has had a slight head cold with clear sinus drainage but feels that this is resolving. He has occasional episodes of constipation and has taken Linzess for relief. We did discuss the possibility of MiraLAX low dose daily to keep bowels more regular. Patient is scheduled to follow with Dr. Kiser on June 21 and will have a repeat CT scan at that time. Problem List (1) Prostate cancer (2) Mesothelioma of lung Oncology History Recurrent mesothelioma currently on Keytruda. Patient received chemotherapy with carboplatin and pemetrexed in 2012, as well as radiation therapy in 2016. Patient follows with Dr. Kiser in [place] and completes CT scans routinely . Distant history of prostate cancer, [place] 6 diagnosed in 2007. Patient completed brachytherapy seed implant and external beam radiation therapy on 2 separate events he had an elevation of the PSA. We will continue to monitor Medical History Family History: FH: lymphoma BROTHER OR SISTER, , Onset:43 FH: prostate cancer FATHER, , Onset:71 BROTHER OR SISTER, Onset:64 Psychosocial History Social History Patient is and is retired. Alcohol History He denies any abuse Recreational Drug History He denies use Smoking History: Yes Smoking Status: Former Smoker Exposure to Second Hand Smoke?: No When Quit Tobacco?: 12-14 years ago Medications and Allergies Active Scripts Umeclidinium Brm/Vilanterol Tr (Anoro Ellipta 62.5-25 Mcg INH) 1 Each Disk.w.dev , 65.2 MCG PO DAILY for 60 Days, #120 MG 6 Refills Prov:FOREIGN GUERRERO HARNESS PLACER-BC, ONC 02/14/17 Lorazepam (LORAZEPAM) 1 Mg Tab, 1 TAB PO PRN Y for ANXIETY, #60 TAB Prov:ANKIT RENEE MD 06/22/15 Folic Acid (FOLIC ACID) 1 Mg Tablet, 1 MG PO DAILY, #90 TAB 3 Refills Prov:ANKIT RENEE MD 12/17/14 Albuterol Sulfate (ALBUTEROL SULFATE) 2.5 Mg/0.5 Ml Vial.neb, 2.5 MG IH Q6H, #30 Prov:MILADYS HUANG DO 09/22/13 Reported Medications Pantoprazole Sodium (PANTOPRAZOLE SODIUM) 40 Mg Tablet.dr, 40 MG PO QDAY, TAB.SR 06/19/16 Guaifenesin (MUCINEX) 1,200 Mg Tbmp.12hr, 1200 MG PO PRN 03/23/15 Aspirin (Children's Aspirin) 81 Mg Tab.chew, 1 TAB PO BID 03/23/15 Atorvastatin Calcium (ATORVASTATIN CALCIUM) 20 Mg Tablet, 1 TAB PO QDAY, TAB 03/23/15 Albuterol Sul Hfa 90 Mcg 8 Gm (VENTOLIN HFA 90 MCG 8 GM) 8.5 Gm Hfa.aer.ad, 2 PUFF IH Q6H 09/22/13 Bifidobacterium Infantis (ALIGN) 4 Mg Capsule, 4 MG PO QDAY, CAPSULE 05/02/13 Acetaminophen (TYLENOL) 325 Mg Tablet, 325-650 MG PO Q6H Y for PAIN Take as needed for mild pain relief 03/07/13 Pyridoxine Hcl (VITAMIN B-6) 100 Mg Tablet, 100 MG PO BID 10/31/12 Tamsulosin Hcl (FLOMAX) 0.4 Mg Cap.er.24h, 0.4 MG PO QODAY 09/25/12 Allergies: Coded Allergies: No Known Allergies (Verified Allergy, Unknown, 03/19/17) Review of System/Physical Exam Review of Systems All Systems Reviewed/Normal: Yes, Except as Noted Respiratory: Positive for Shortness of Breath HEENT: Nasal Discharge Gastrointestinal: Constipation Hematologic: Positive for Fatigue, Positive for Weakness Skin: Positive for Other (itching of the skin which is a side effect of Keytruda without evidence of a skin rash) Physical Exam Vital Signs Temperature: 98.1 Pulse: 58 BP Systolic: 142 BP Diastolic: 73 Respiratory Rate: 16 O2 SAT: 93 O2 Delivery: Nasal Cannula Height (inches) 71.00 Weight lb: 214 Weight oz: 2.0 Weight Kg (Vance): 97.819407 Pain: 0 ECOG Score: 2 General: Stable, Well Developed, Well Nourished, Not In Acute Distress HEENT: No Conjunctivitis, No Icterus, No Mucositis, No Oral Thrush, No Sinus Tenderness Neck: Supple Lungs: Clear to Auscultation Heart: Regular Rate, Regular Rhythm, No Gallops, No Murmurs Abdomen: Soft and Nontender, No Hepatosplenomegaly, No Masses, Other (bowel sounds are active) Extremities: No Cyanosis, No Clubbing, No Edema Lymphadenopathy: No Cervical, No Subclavicular Psychiatric: Mood appears normal, Affect appears normal Skin: No Skin Rashes, No Bruising, No Purpura Diagnostic Studies Diagnostic Studies Laboratory Laboratory Tests 05/31/17 09:28 Laboratory Tests 03/19/17 00:00: Urine Color Yellow, Urine Clarity Clear, Urine pH 5.0, Urine Specific [place] 1.036, Urine Protein Negative, Urine Glucose (UA) Negative, Urine Ketones Negative, Urine Blood Negative, Urine Nitrite Negative, Urine Bilirubin Negative , Urine Urobilinogen Negative, Urine Leukocyte Esterase Negative, Urine RBC 6, Urine WBC <1, Urine Squamous Epithelial Cells None, Urine Bacteria Negative, Urine Mucus Few 03/29/17 10:45: Peripheral Blood Smear No 05/10/17 10:46: Total Triiodothyronine 98 05/31/17 09:28: White Blood Count 6.4, Red Blood Count 4.29, Hemoglobin 15.1, Hematocrit 43.7, Mean Corpuscular Volume 101.9, Mean Corpuscular Hemoglobin 35.2, Mean Corpuscular Hemoglobin Concent 34.5, Red Cell Distribution Width 13.7, Platelet Count 253, Mean Platelet Volume 7.6, Neutrophils (%) (Auto) 70.3, Lymphocytes (% ) (Auto) 16.9, Monocytes (%) (Auto) 8.0, Eosinophils (%) (Auto) 3.9, Basophils ( %) (Auto) 0.9, Nucleated RBC Relative Count (auto) 0.1, Neutrophils # (Auto) 4.5 , Lymphocytes # (Auto) 1.1, Monocytes # (Auto) 0.5, Eosinophils # (Auto) 0.2, Basophils # (Auto) 0.1, Nucleated RBC Absolute Count (auto) 0.01, Sodium Level 135, Potassium Level 3.8, Chloride Level 97, Carbon Dioxide Level 23, Blood Urea Nitrogen 28, Creatinine 1.20, Glomerular Filtration Rate Calc 58.9, Random Glucose 103, Calcium Level 9.2, Magnesium Level 1.9, Total Bilirubin 0.8, Aspartate Amino Transf (AST/SGOT) 31, Alanine Aminotransferase (ALT/SGPT) 38, Alkaline Phosphatase 144, Total Protein 8.0, Albumin 4.0, Thyroid Stimulating Hormone (TSH) 3.40, Free Thyroxine 1.27 Assessment and Plan Assessment & Plan 1. History of recurrent mesothelioma currently on Keytruda cycle 11 today. He has previously received chemotherapy with carboplatin and pemetrexed in 2012 and radiation therapy in early 2016. He continues to follow with Dr. Kiser in [place] with a CT scan prior the office visit. Most recent scan showed evidence of some response. Patient is scheduled to follow June [address] Kiser. 2. Distant history of prostate cancer status post brachytherapy seed implant and external beam radiotherapy. PSA in December was 1.79, prior to that was 1.38. We'll continue to monitor. 3. Chronic obstructive pulmonary disease on chronic O2 with a potential COPD exacerbation. Symptoms remain stable today on exam. Patient is on 4 L of oxygen per nasal cannula 4. Chronic mild renal insufficiency. This is monitored with his chemistry panel prior to treatment and remains within normal limits today. I personally spent a total of 20 minutes. Of that 15 minutes was counseling/ coordination of patient's care. See my note above for details. FOREIGN GUERRERO HARNESS PLACER-BC, ONC May 31, 2017 12:11
[2017-06-18] MEDS ORDERED: SERT-184 PO (08:24)
== END 2017-06-14 ==
LOC: ONC 09:13
PROVIDERS: ATTEND Internal Medicine
DX: C45.7 Mesothelioma of other sites (principal); J18.9 Pneumonia, unspecified organism; J98.11 Atelectasis; E27.8 Other specified disorders of adrenal gland; R91.1 Solitary pulmonary nodule; R06.02 Shortness of breath; Z85.46 Personal history of malignant neoplasm of prostate; Z79.82 Long term (current) use of aspirin; Z79.899 Other long term (current) drug therapy; Z87.891 Personal history of nicotine dependence; R53.83 Other fatigue; R53.1 Weakness; Z92.3 Personal history of irradiation; J44.9 Chronic obstructive pulmonary disease, unspecified; N18.9 Chronic kidney disease, unspecified
CPT/HCPCS: 71275; 81001; 83735; 84439; 84443; 84480; 84481; 85025; 85027; 96365; 96375; 96413; G0463; J2405; J7050; J9271; Q9967; 82040; 82247; 82310; 82374; 82435; 82565; 82947; 84075; 84132; 84155; 84295; 84450; 84460; 84520; 99212

== ENCOUNTER → 2017-07-02 | Outpatient (CLI) | payer MEDICARE, BC ==
[~2017-07-02] MED LIST changes: -DEXTROSE 5%(*) 100 ML BAG 100 ML IVPB PRN; -IOPAMIDOL 76% 100 ML INFUS BTL 100 ML ONE; -NS 0.9% 50 ML VIAL 50 ML ONE; -ONDANSETRON 4 MG/2 ML VIAL IVP ONE; -PEMBROLIZUMAB 100 MG/4 ML SDV 200 MG in NS(*) 0.9% 50 ML BAG 50 ML IV ONE; +SERT-184 PO
== END ==
LOC: RESP 01:01
PROVIDERS: ATTEND Internal Medicine
DX: J44.9 Chronic obstructive pulmonary disease, unspecified (principal); J98.4 Other disorders of lung
CPT/HCPCS: 94060; 94726; 94729

== ENCOUNTER → 2017-08-24 | Outpatient (CLI) | payer MEDICARE, BC ==
[~2017-08-24] MED LIST changes: -ASPI-816 PO; +ASPI-870 PO; +LINA290C PO
== END ==
LOC: SPU 12:15
PROVIDERS: ATTEND Internal Medicine Cardiovascular Disease
DX: I25.10 Atherosclerotic heart disease of native coronary artery without angina pectoris (principal)
CPT/HCPCS: 82465; 83718; 84478

== ENCOUNTER 2017-08-30 08:52 | Outpatient (RCR) | payer MEDICARE, BC | END 2017-09-03 | LOC: RESP 08:52 | PROVIDERS: ATTEND Internal Medicine | DX: J44.9 Chronic obstructive pulmonary disease, unspecified (principal) | CPT/HCPCS: G0424 ×5 ==

== ENCOUNTER 2017-09-12 10:48 | Outpatient (RCR) | payer MEDICARE, BC ==
[2017-06-18 08:25] VITALS: BP 148/79
--- NOTE | 2017-06-18 12:09 | [facility] ONCOLOGY NOTE ---
DATE OF VISIT: June 18, 2017 CHIEF COMPLAINT/REASON FOR VISIT Mr. Mathew is a pleasant 77-year-old gentleman with mesothelioma responding to pembrolizumab, here for followup. HISTORY OF PRESENT ILLNESS Mr. Mathew returns. He is due for cycle 12 this coming Sunday. His recent imaging showed slight response to therapy. It is not unusual to have slow response to immunotherapy. When he receives the pembrolizumab, he feels better for about a week, and this may be due to some steroids. However, we want to minimize the use of steroids to avoid interfering with his immune therapy. He requires approximately 4 L of oxygen today. We had a discussion about his depression. He recently started Zoloft about 5-6 weeks ago. It takes time for this to work. His thinks that it has helped slightly. He thinks part of it is being cooped up in his house during the winter and hopes that he will be better after it warms up and is able to get out more. I advised him that I am okay if he has one alcoholic beverage per day , and I do not feel that he needs to stay in his house the entire time during cold and flu season. ONCOLOGIC HISTORY His oncology history is remarkable for a [place] 6 prostate cancer diagnosed in 2007, treated with seed implants, external beam radiation therapy. On two separate events he has had a slight rise in his PSA, and we will follow this. He was diagnosed with malignant mesothelioma status post five cycles of carboplatin and pemetrexed as well as talc pleurodesis. Relapse in 2016 and was treated with pembrolizumab monotherapy and responding. PAST MEDICAL/SURGICAL HISTORY 1. COPD on 4-6L of oxygen. 2. Macrocytosis. 3. Mesothelioma. 4. Renal insufficiency. 5. History of [place]arc[place] 6 prostate cancer. Received radiation on two separate occludes, with the external beam radiation therapy being in 2011. 6. Hypercholesterolemia. 7. Former smoker. FAMILY HISTORY: Remarkable for prostate cancer and lymphoma. SOCIAL HISTORY: Patient is and has presented with his today. 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 REVIEW OF SYSTEMS CONSTITUTIONAL: No fevers, chills, weight change. HEENT: No headache or vision changes. CARDIOVASCULAR: No chest pain, dyspnea on exertion or edema. RESPIRATORY: Chronic shortness of breath and oxygen use. No wheeze or cough. GI: No nausea or vomiting. : No dysuria or hematuria. MUSCULOSKELETAL: No weakness or joint pain. PSYCHIATRIC: Positive depression now on Zoloft, no anxiety. ENDOCRINE: No heat or cold intolerance. NEUROLOGIC: No deficits. The remainder of the 14-point review of systems is otherwise negative. PHYSICAL EXAMINATION VITAL SIGNS: Blood pressure 148/79, pulse 83, respiratory rate 18, temperature 95.8 Fahrenheit, oxygen saturation 90% on 4L. Pain 0/10, fatigue 4/10. GENERAL: Stable condition, resting comfortably in the chair. HEENT: Normocephalic, atraumatic. CARDIOVASCULAR: Regular rate and rhythm. LUNGS: Clear to auscultation bilaterally. Slightly prolonged expiratory phase. I continue to believe that his breath sounds at the bases are improved compared to prior to treatment. ABDOMEN: Soft, nontender. EXTREMITIES: No clubbing, cyanosis or edema. Remainder of physical exam otherwise unremarkable. IMPRESSION AND PLAN Mr. Mathew is a very pleasant 77-year-old gentleman with the followin. Distant history of [place] 6 prostate cancer. 2. Recurrent mesothelioma on pembrolizumab, cycle 12. Ready to move forward, has followup with Dr. Kiser later in the spring. Some response on imaging, and we expect a slow response. 3. Chronic obstructive pulmonary disease on O2. No recent exacerbations. 4. Chronic mild renal insufficiency. I answered all of his questions today. Will continue with therapy. Billing: Return visit level 4. Total time 30 minutes, counseling time 20. MTDD
[2017-06-20 08:34] VITALS: BP 124/73
[2017-06-20] MEDS: NS(*) 0.9% 100 ML BAG 100 ML IVPB PRN (09:00)
[2017-06-20 10:15] VITALS: BP 136/89
[2017-07-12 10:01] VITALS: BP 128/81
[2017-07-12] MEDS: NS(*) 0.9% 100 ML BAG 100 ML IVPB PRN (10:22)
--- NOTE | 2017-07-12 10:28 | RADIOLOGY IMAGING REPORT ---
FACILITY: [facility] - [place] PATIENT NAME: Nate Mathew : 1940 MR: [id number] V: [id number] EXAM DATE: [id number] ORDERING PHYSICIAN: ANDREA UNDERWOOD TECHNOLOGIST: [place] [facility] [place]w : 1940 Visit/Account:[id number] Date of Sevice: 07/12/2017 Exam type: CHEST PA AND LAT History: Shortness of breath for six years Comparison: March 28, 2017. Findings: Again noted is hyperinflation of the lung hall bilaterally. There are chronic interstitial changes of the lungs, most prominent in the lung bases that appears similar to the prior examination. There is chronic blunting the right costophrenic angle. There is no evidence of overt pulmonary edema. T he cardiac size is normal in size. There are moderate spondylotic changes of the thoracic spine IMPRESSION: 1. Hyperinflation lung hall bilaterally and chronic interstitial changes of the lungs, most promin ent in the lung bases appear similar to the prior study Report Dictated By: Carissa Levy MD at 07/12/2017 10:20 AM Report E-Signed By: Carissa Levy MD at 07/12/2017 10:22 AM WSN:[email or web address]
[2017-07-12 12:19] VITALS: BP 120/80
[2017-07-30 08:59] VITALS: BP 123/80
--- NOTE | 2017-07-31 17:14 | ONCOLOGY FOLLOW UP NOTE ---
EVENT DATE: July 30, 2017 CHIEF COMPLAINT/REASON FOR VISIT Mr. Mathew is a very pleasant 77-year-old gentleman with mesothelioma responding to pembrolizumab, here for followup. HISTORY OF PRESENT ILLNESS Mr. Mathew returns. He is due for cycle 14 of Keytruda this coming . His most recent imaging with Dr. Kiser showed slight response to therapy. It is now unusual to have slow response. When he receives the drug, he feels better for about a week and this may be due to some steroids. However, we are minimizing and avoiding the use of steroids as they can interfere with immune therapy. It is interesting that he has this week of improved symptoms. He requires about 4L of oxygen regularly. He is about to start pulmonary rehab this week, which I think is the most important next step for him. His last chest x-ray showed hyperinflated lungs and emphysema, but no significant effusion to intervene with. We again discussed his depression. He does feel that the Zoloft is helping. This is very encouraging. He feels that he has less anxiety. ONCOLOGIC HISTORY His oncology history is remarkable for a [place] 6 prostate cancer diagnosed in 2007, treated with seed implants, external beam radiation therapy. On two separate events he has had a slight rise in his PSA, and we will follow this. He was diagnosed with malignant mesothelioma status post five cycles of carboplatin and pemetrexed as well as talc pleurodesis. Relapse in 2016 and was treated with pembrolizumab monotherapy and responding. PAST MEDICAL/SURGICAL HISTORY 1. COPD on 4-6L of oxygen. 2. Macrocytosis. 3. Mesothelioma. 4. Renal insufficiency. 5. History of Narcisa 6 prostate cancer. Received radiation on two separate occludes, with the external beam radiation therapy being in 2011. 6. Hypercholesterolemia. 7. Former smoker. FAMILY HISTORY: Remarkable for prostate cancer and lymphoma. SOCIAL HISTORY: Patient is and has presented with his today. 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 REVIEW OF SYSTEMS CONSTITUTIONAL: No fevers, chills, weight change. HEENT: No headache or vision changes. CARDIOVASCULAR: No chest pain, dyspnea on exertion or edema. RESPIRATORY: Chronic shortness of breath on oxygen use. Positive cough which is unchanged. No wheezing. GI: No nausea or vomiting. : No dysuria or hematuria. MUSCULOSKELETAL: No weakness or joint pain. PSYCHIATRIC: Positive depression now on Zoloft, no anxiety. ENDOCRINE: No heat or cold intolerance. NEUROLOGIC: No deficits. The remainder of the 14-point review of systems is otherwise negative. PHYSICAL EXAMINATION VITAL SIGNS: Blood pressure 123/89, pulse 89, respiratory rate 16, temperature 96.5 Fahrenheit, oxygen saturation 90% on 5L. Weight 92.5 kg. Pain 0/10, fatigue 0/10. GENERAL: Stable condition, resting comfortably in the chair. ECOG performance status continues to be 1. HEENT: Normocephalic, atraumatic. LUNGS: Clear to auscultation bilaterally. Slightly diminished at the right base compared to the left. Hyperinflated lungs. Chronic O2 use. CARDIOVASCULAR: Regular rate and rhythm. ABDOMEN: Soft, nontender. EXTREMITIES: No clubbing, cyanosis or edema. SKIN: No concerning rashes. Remainder of physical exam otherwise unremarkable. IMPRESSION AND PLAN Mr. Mathew is a very pleasant gentleman with the followin. Distant history of [place] 6 prostate cancer. 2. Recurrent mesothelioma on pembrolizumab, here for cycle 14 this week. Imaging scheduled in [place] in September. 3. Chronic obstructive pulmonary disease/emphysema on chronic O2. 4. Chronic mild renal insufficiency. 5. Anxiety/depression, improved somewhat with the Zoloft. Will continue. 6. Irritable bowel syndrome. Will refill his Linzess, but would like him to follow up with his primary care provider. I answered all of their questions today. Ready to proceed. Billing: Return visit level 4. Total time 30 minutes, counseling time 20. MTDD
--- NOTE | 2017-08-02 08:53 | RADIOLOGY IMAGING REPORT ---
FACILITY: [facility] PATIENT NAME: Nate Mathew : 1940 MR: [id number] V: [id number] EXAM DATE: [id number] ORDERING PHYSICIAN: NEIDA PENNY TECHNOLOGIST: [place] [facility] [place]: Naet Mathew : 1940 Visit/Account:[id number] Date of Sevice: 08/02/2017 Exam type: CHEST PA AND LAT History: Mesothelioma for five years, chest pain, tightness, shortness of breath, quit smoking 15 yea rs ago Comparison: July 12, 2017. Findings: Chronic pleural parenchymal scarring throughout the lungs most prominent in the lung bases appear sim ilar to the prior study. There suggestion of a pleural-based calcification along the diaphragmatic s urface of the right hemidiaphragm no acute areas of prominent consolidation identified. Cardiac silh ouette is normal in size. There are moderate spondylotic changes of the thoracic spine IMPRESSION: 1. Chronic pleural parenchymal scarring throughout the lungs most prominent in the bases appear ino lar to the prior study. There appears to be a calcification along the diaphragmatic surface of the right lower thorax consist ent with the history of mesothelioma Report Dictated By: Carissa Levy MD at 08/02/2017 8:46 AM Report E-Signed By: Carissa Levy MD at 08/02/2017 8:49 AM WSN:GA
[2017-08-02 09:26] VITALS: BP 113/72
[2017-08-02 11:23] VITALS: BP 110/61
[2017-08-02] MEDS: NS(*) 0.9% 100 ML BAG 100 ML IVPB PRN (11:24)
--- NOTE | 2017-08-23 13:14 | RADIOLOGY IMAGING REPORT ---
FACILITY: [facility] PATIENT NAME: Nate Mathew : 1940 MR: [id number] V: [id number] EXAM DATE: ORDERING PHYSICIAN: NEIDA PENNY TECHNOLOGIST: Location: [facility] Patient: Nate Mathew : 1940 Visit/Account:[id number] Date of Sevice: 08/23/2017 Exam type: CHEST PA AND LAT History: Mesothelioma, shortness of breath and cough Comparison: August 02, 2017 Findings: When compared to the prior study again noted is chronic pleural scarring in the lung bases and right apical pleural thickening that appears similar to the prior study. Calcifications along the inferior aspect of the right lower thorax also appear similar. Cardiac silhouette appears normal in size. T here are moderate spondylotic changes of the thoracic spine.. IMPRESSION: 1. Chronic pleural parenchymal scarring in the lung bases and right apex appear similar to the prior study. Pleural-based calcifications along the right lower thorax consistent with the history of mesothelioma Report Dictated By: Carissa Levy MD at 08/23/2017 1:07 PM Report E-Signed By: Carissa Levy MD at 08/23/2017 1:09 PM WSN:[email or web address]
[2017-08-24 09:28] VITALS: BP 98/60
[~2017-09-12] VITALS: Ht 180.3 cm; Wt 92.3 kg
[~2017-09-12 10:48] MED LIST changes: +DEXTROSE 5%(*) 100 ML BAG 100 ML IVPB PRN; +LIDOCAINE/SOD BICARB 8.4% SYR ID PRN; +PEMBROLIZUMAB 100 MG/4 ML SDV 200 MG in NS(*) 0.9% 50 ML BAG 50 ML IV ONE
[2017-09-12 11:09] VITALS: BP 107/70
[2017-09-12] MEDS ORDERED: PANT40TA65 PO (11:09)
[2017-09-12] MEDS ORDERED: LORA1TAB69 PO (11:09)
[2017-09-12] MEDS ORDERED: PRED-420 PO (11:28)
--- NOTE | 2017-09-12 19:35 | ONCOLOGY FOLLOW UP NOTE ---
EVENT DATE: September 12, 2017 CHIEF COMPLAINT/REASON FOR VISIT Mr. Mathew is a very pleasant 77-year-old gentleman with mesothelioma responding to pembrolizumab, here for followup. HISTORY OF PRESENT ILLNESS Mr. Mathew returns. He is due for cycle 16 for Keytruda tomorrow, September 13. His most recent imaging by (29) showed slight response to therapy. It is not unusual to have a slow response with immunotherapy. When he receives the drug he feels better for about a week. We had been minimizing the use of steroids as it could interfere with immune therapy, however, I believe his COPD has progressed to the point that we will require low dose prednisone. He is requiring 15L to do any sort of physical activity and this is not acceptable. His last chest x-rays did not show progression, but do show significant hyperinflation and emphysema. No significant effusion to intervene. As a result, I would like to start 10 mg of prednisone daily today as his pulmonary issues are currently uncontrolled. He has followup with Pulmonary, a new senior technical support analyst, in approximately two months. ONCOLOGY HISTORY His oncology history is remarkable for a [place] 6 prostate cancer diagnosed in 2007, treated with seed implants, external beam radiation therapy. On two separate events he has had a slight rise in his PSA, and we will follow this. He was diagnosed with malignant mesothelioma status post five cycles of carboplatin and pemetrexed as well as talc pleurodesis. Relapse in 2016 and was treated with pembrolizumab monotherapy and responding. PAST MEDICAL/SURGICAL HISTORY 1. COPD on 4-6L of oxygen. 2. Macrocytosis. 3. Mesothelioma. 4. Renal insufficiency. 5. History of Narcisa 6 prostate cancer. Received radiation on two separate occludes, with the external beam radiation therapy being in 2011. 6. Hypercholesterolemia. 7. Former smoker. FAMILY HISTORY: Remarkable for prostate cancer and lymphoma. SOCIAL HISTORY: Patient is and has presented with his today. 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 REVIEW OF SYSTEMS CONSTITUTIONAL: No fevers, chills, weight change. HEENT: No headache or vision changes. CARDIOVASCULAR: No chest pain, dyspnea on exertion or edema. RESPIRATORY: Chronic shortness of breath on oxygen use. Positive cough which is unchanged. No wheezing. GI: No nausea or vomiting. : No dysuria or hematuria. MUSCULOSKELETAL: No weakness or joint pain. PSYCHIATRIC: Positive depression now on Zoloft, no anxiety. ENDOCRINE: No heat or cold intolerance. NEUROLOGIC: No deficits. The remainder of the 14-point review of systems is otherwise negative. PHYSICAL EXAMINATION VITAL SIGNS: Blood pressure 107/70, pulse 78, respiratory rate 16, temperature 96.7 Fahrenheit, oxygen saturation 90% on 6L and is the highest that we can get him. Weight 92.3 kg and stable. Pain 0/10, fatigue 4/10. GENERAL: Stable condition, resting comfortably in the chair. HEENT: Normocephalic, atraumatic. RESPIRATORY: Patient has changes of COPD/emphysema. He is requiring quite a bit of oxygen both here and at home. This becomes markedly abnormal with any sort of physical activity. He is currently doing pulmonary rehab, which I think is excellent, however, he likely is in need of some low dose steroids, trying to balance his significant COPD as well as his immunotherapy for mesothelioma. CARDIOVASCULAR: Regular rate and rhythm. ABDOMEN: Soft. Right upper quadrant nontender mass palpated. SKIN: No concerning rashes or lesions. PSYCHIATRIC: Normal mood and affect. Remainder of physical exam otherwise unremarkable. IMPRESSION AND PLAN Mr. Mathew is a very pleasant gentleman with the followin. Distant history of [place] 6 prostate cancer under control. 2. Recurrent mesothelioma on pembrolizumab, here for cycle 16 this week. Imaging scheduled next week. On his abdominal exam I did feel a right upper quadrant mass and so I will include a CT chest, abdomen and pelvis with Dr. Kiser 's orders next week. He had been receiving the imaging in [place] previously so I would like to keep it there as well for the same radiologist and imaging center. 3. Chronic obstructive pulmonary disease/emphysema on chronic O2. 4. Chronic mild renal insufficiency. 5. Anxiety/depression, improved somewhat with the Zoloft, but exacerbates significantly when he has episodes of shortness of breath and hypoxia, which is understandable. Hopefully this will improve with he prednisone low dose. I answered all of his questions today. I sent a message through the [employer] system to Dr. Kiser to let him know that I am planning to add the low dose prednisone and that I am completely aware that we want to minimize use of steroids, however, I feel the benefits outweigh the risks at this point. We have been avoiding it for quite some time. I am choosing an extremely low dose that may need to go up, and therefore I encouraged him to contact us if he does not improve. Billing: Return visit level 4. Total time 30 minutes, counseling time 20. MTDD
== END 2017-09-13 ==
LOC: ONC 10:48
PROVIDERS: ATTEND Internal Medicine
DX: C45.7 Mesothelioma of other sites (principal); Z85.46 Personal history of malignant neoplasm of prostate; J44.9 Chronic obstructive pulmonary disease, unspecified; Z99.81 Dependence on supplemental oxygen; N18.9 Chronic kidney disease, unspecified; R06.02 Shortness of breath; R53.83 Other fatigue; R05 Cough; F32.9 Major depressive disorder, single episode, unspecified; F41.9 Anxiety disorder, unspecified; K58.9 Irritable bowel syndrome, unspecified
CPT/HCPCS: 71046; 83735; 84439; 84443; 84481; 85027; 96365; 96413; G0463; J7050; J9271; 82040; 82247; 82310; 82374; 82435; 82465; 82565; 82947; 83718; 84075; 84132; 84155; 84295; 84450; 84460; 84478; 84520; 99212

== ENCOUNTER → 2017-10-09 | Outpatient (RCR) | payer MEDICARE, BC ==
[~2017-10-09] MED LIST changes: -DEXTROSE 5%(*) 100 ML BAG 100 ML IVPB PRN; -LIDOCAINE/SOD BICARB 8.4% SYR ID PRN; +LORA1TAB69 PO; -PEMBROLIZUMAB 100 MG/4 ML SDV 200 MG in NS(*) 0.9% 50 ML BAG 50 ML IV ONE; +PRED-420 PO
== END ==
LOC: RESP 09-04 09:00
PROVIDERS: ATTEND Internal Medicine
DX: J44.9 Chronic obstructive pulmonary disease, unspecified (principal)
CPT/HCPCS: G0424 ×7

== ENCOUNTER 2017-10-23 12:30 | Outpatient (RCR) | payer MEDICARE, BC ==
[2017-11-15] MEDS ORDERED: CHOL10005 PO (14:10)
[2017-11-15] MEDS ORDERED: IRON150C19 PO (14:10)
== END 2017-11-15 ==
LOC: RESP 12:30
PROVIDERS: ATTEND Internal Medicine
DX: J44.9 Chronic obstructive pulmonary disease, unspecified (principal)
CPT/HCPCS: G0239 ×5

== ENCOUNTER 2017-12-10 09:46 | Outpatient (RCR) | payer MEDICARE, BC ==
[2017-09-14 14:00] VITALS: BP 117/69
[2017-10-03 14:24] VITALS: BP 121/72
[2017-10-04 09:37] VITALS: BP 112/65
[2017-10-04 11:06] VITALS: BP 116/62
--- NOTE | 2017-10-04 17:34 | ONCOLOGY FOLLOW UP NOTE ---
EVENT DATE: October 03, 2017 CHIEF COMPLAINT/REASON FOR VISIT Mr. Mathew is a pleasant 77-year-old gentleman with mesothelioma on Keytruda with stable disease and overall control of his disease, here for followup. HISTORY OF PRESENT ILLNESS Mr. Mathew returns. He is due of cycle 17 of Keytruda later this month. His most recent imaging at the beginning of the month shows stable disease to slight response to therapy. It is not unusual to have slow response to immunotherapy. I had been concerned about his COPD/emphysema, and I would like him to follow up at Pulmonary as planned this November. At times he is requiring 15L of oxygen doing any sort physical activity. I am concerned that we have his mesothelioma under control, but he will succumb to his emphysema eventually. I had started him on 10 mg of prednisone daily trying to balance interfering with the pembrolizumab versus benefitting his emphysema. Dr. Baxter and I are fully aware that this will impact the benefit from the pembrolizumab and Dr. Baxter's recommendation was to stop it. After consideration and the lack of benefit after a week's worth of this therapy, I think that is very appropriate and agree with Dr. Baxter's recommendation. Mr. Stallings, his and I had a good conversation today about his emphysema and how it is important to continue to work with Pulmonary Rehab and follow up with Pulmonary. Another physician had recommendation consideration of a tracheostomy, but I would hesitate to consider that extreme step. He does have a sleep study ordered. ONCOLOGY HISTORY His oncology history is remarkable for a [place] 6 prostate cancer diagnosed in 2007, treated with seed implants, external beam radiation therapy. On two separate events he has had a slight rise in his PSA, and we will follow this. He was diagnosed with malignant mesothelioma status post five cycles of carboplatin and pemetrexed as well as talc pleurodesis. Relapse in 2017 and was treated with pembrolizumab monotherapy and responding. PAST MEDICAL/SURGICAL HISTORY 1. COPD on 4-6L of oxygen. 2. Macrocytosis. 3. Mesothelioma. 4. Renal insufficiency. 5. History of Narcisa 6 prostate cancer. Received radiation on two separate occludes, with the external beam radiation therapy being in 2011. 6. Hypercholesterolemia. 7. Former smoker. FAMILY HISTORY: Remarkable for prostate cancer and lymphoma. SOCIAL HISTORY: Patient is and has presented with his today. 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 REVIEW OF SYSTEMS CONSTITUTIONAL: No fevers, chills, weight change. HEENT: No headache or vision changes. CARDIOVASCULAR: No chest pain, dyspnea on exertion or edema. RESPIRATORY: Chronic shortness of breath on oxygen use. Positive cough which is unchanged. No wheezing. GI: No nausea or vomiting. : No dysuria or hematuria. MUSCULOSKELETAL: No weakness or joint pain. PSYCHIATRIC: Positive depression now on Zoloft, no anxiety. ENDOCRINE: No heat or cold intolerance. NEUROLOGIC: No deficits. The remainder of the 14-point review of systems is otherwise negative. PHYSICAL EXAMINATION VITAL SIGNS: Blood pressure 121/72, pulse 91, respiratory rate 18, temperature 96.5 Fahrenheit, oxygen saturation 91% on 5L His oxygen saturation dropped down to 65% with ambulation, but recovered to 91% after a few minutes on 5L. Pain 5/10, fatigue 5/10. GENERAL: Stable condition, resting comfortably in the chair by the time of my exam. HEENT: Normocephalic, atraumatic. RESPIRATORY: Patient has changes of COPD and emphysema requiring quite a bit of oxygen. He becomes markedly hypoxic with any sort of physical activity. Slightly prolonged expiratory phase. CARDIOVASCULAR: Regular rate and rhythm at the time of my exam. ABDOMEN: Soft. SKIN: No concerning rashes. PSYCHIATRIC: Normal mood and affect. Remainder of physical exam otherwise unremarkable. IMPRESSION AND PLAN Mr. Mathew is a very pleasant gentleman with the followin. Distant history of [place] 6 prostate cancer under control. 2. Recurrent mesothelioma on pembrolizumab, here for cycle [address] abdomen and pelvis was unremarkable. I had felt a right upper quadrant mass in the past, but my suspicion now is that this may have been related to his bowels, as we found no correlating lesion on the CT. His CT of the chest shows stable disease with overall improvement. He does continue to have severe emphysema. . 3. Chronic obstructive pulmonary disease/emphysema on chronic O2. 4. Anxiety/depression related to his shortness of breath, hypoxia. I answered all of his questions today. We had an excellent conversation about the pros and cons of the steroids. He noted no significant benefit after a week of the load of steroid, and we know that it can interfere with his Keytruda. After discussion we are all in agreement to stop it, which he as done. I will see the patient with each cycle. Billing: Return visit level 4. Total time 30 minutes, counseling time 20. MTDD
[2017-10-25 11:12] VITALS: BP 126/91
--- NOTE | 2017-10-25 11:36 | Oncology Progress Note ---
History of Present Illness Evaluation Evaluation Date: Oct 25, 2017 Evaluation Time: 10:12 Primary Care Provider Primary Care Provider: NELY Dowling Accompanied by Accompanied by: Smita. Last seen by : Shania 10/03/2017 Chief Complaint Chief Complaint Treatment cycle#18 Keytruda for Mesothelioma Oncology History Oncology History His oncology history is remarkable for a [place] 6 prostate cancer diagnosed in 2007, treated with seed implants, external beam radiation therapy. On two separate events he has had a slight rise in his PSA, and we will follow this. -He was diagnosed with malignant mesothelioma status post five cycles of carboplatin and pemetrexed as well as talc pleurodesis. -Relapse in 2016 and was treated with pembrolizumab monotherapy and responding Treatment Treatment Initiated on 10/2016 Pembrolizumab Cycle 18 of Keytruda today 10/25/17 - 10 mg of prednisone daily stopped due interfering with the pembrolizumab versus benefitting his emphysema - Pulmonary Rehab and follow up with Pulmonary. HPI HPI Mr. 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 status post five cycles of carboplatin and pemetrexed as well as talc pleurodesis. Patient presents to cancer center today accompany by his for his treatment of keytruda. He is AAOX3, and Hemodynamically stable. He reports being in his usual state of health. besides occasional runny nose. Overall patient is feeling relatively well. He continues to have some respiratory issues to include shortness of breath, mild wheezing, and symptoms increase with exertion. Patient continues to be on 7L nasal canula oxygen therapy.Overall patient is feeling relatively well. Denies N/V/D. no fevers, or chills at home, recent infections or hospitalizations, No bruising , bleeding, cardiac type chest pain,no dark stools, or hematuria. No changes in weight, appetite, bowel or bladder pattern. Significant PMH of Macrocytosis; COPD; Renal insufficiency ; Hypercholesterolemia; reported sleep apnea as well as use of c-pap in the past. Former smoker. 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 Diagnostic Studies Result Diagram: 10/25/1793910/25/17 0940 PMH Patient History: FH: lymphoma BROTHER OR SISTER, , Onset:43 FH: prostate cancer FATHER, , Onset:71 BROTHER OR SISTER, Onset:64 Social/Occupational History Social History: Social History This is a 77 Yr old White male, he is M and has [] Children Hx Smoking: Yes Smoking Status: Former Smoker Exposure to Second Hand Smoke?: No When Quit Tobacco?: QUIT 1996 Allergies & Medications Allergies: Coded Allergies: No Known Allergies (Verified Allergy, Unknown, 03/19/17) Home Meds Active Scripts Prednisone 10 Mg Tab (PREDNISONE 10 MG TAB) 10 Mg Tab.ds.pk, 10 MG PO DAILY, # 30 TAB 3 Refills Prov:NEIDA PENNY MD 09/12/17 Linaclotide (LINZESS) 290 Mcg Capsule, 290 MCG PO DAILY, #30 CAPSULE 2 Refills Prov:NEIDA PENNY MD 07/30/17 Umeclidinium Brm/Vilanterol Tr (Anoro Ellipta 62.5-25 Mcg INH) 1 Each Disk.w.dev , 65.2 MCG PO DAILY for 60 Days, #120 MG 6 Refills Prov:[employer] 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, 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 02/14/17 Lorazepam (LORAZEPAM) 1 Mg Tab, 1 TAB PO PRN Y for ANXIETY, #60 TAB Prov:ANKIT RENEE MD 06/22/15 Albuterol Sulfate (ALBUTEROL SULFATE) 2.5 Mg/0.5 Ml Vial.neb, 2.5 MG IH Q6H, #30 Prov:MILADYS HUANG DO 09/22/13 Reported Medications Loratadine/Pseudoephedrine (CLARITIN-D 24 HOUR TABLET) 1 Each Tab.er.24h, 1 EACH PO DAILY 09/12/17 Pantoprazole Sodium (PANTOPRAZOLE SODIUM) 40 Mg Tablet.dr, 40 MG PO QDAY, TAB.SR 09/12/17 Sertraline Hcl (SERTRALINE HCL) 50 Mg Tablet, 1 TAB PO QDAY, TAB 06/18/17 Guaifenesin (MUCINEX) 1,200 Mg Tbmp.12hr, 1200 MG PO PRN 03/23/15 Aspirin (Children's Aspirin) 81 Mg Tab.chew, 1 TAB PO BID 03/23/15 Atorvastatin Calcium (ATORVASTATIN CALCIUM) 20 Mg Tablet, 1 TAB PO QDAY, TAB 03/23/15 Albuterol Sul Hfa 90 Mcg 8 Gm (VENTOLIN HFA 90 MCG 8 GM) 8.5 Gm Hfa.aer.ad, 2 PUFF IH Q6H 09/22/13 Bifidobacterium Infantis (ALIGN) 4 Mg Capsule, 4 MG PO QDAY, CAPSULE 05/02/13 Acetaminophen (TYLENOL) 325 Mg Tablet, 325-650 MG PO Q6H Y for PAIN Take as needed for mild pain relief 03/07/13 Pyridoxine Hcl (VITAMIN B-6) 100 Mg Tablet, 100 MG PO BID 10/31/12 Tamsulosin Hcl (FLOMAX) 0.4 Mg Cap.er.24h, 0.4 MG PO QODAY 09/25/12 Review of Systems Constitution: Denies Appetite/Weight Change, Denies Fever/Chills/Sweating, Denies Recent Infection, Denies Other HEENT: No EARS: Tinnitus, NOSE: Nasal Discharge, No THROAT: Sore Throat, No EYES: Dipolpia, No EARS: Hearing Problems, No NOSE: Epistaxis, No THROAT: Mouth Ulcers, No EYES: Vision Change, No OTHER Respiratory: Cough (at night) Cardiovascular: No Chest Pain, No Orthopnea, No Edema, No Palpitations, No OTHER Gastrointestinal: No Nausea, No Vomitting, No Diarrehea, No Constipation, No Heart Burn, No Swallowing Difficulties, No Abdominal Pain, No Other Gentiourinary: No Hematuria, No Dysuria, No Nocturia, No Other Musculoskeletal: Muscle Pain, No Joint Pain, No Bone Pain, No Other Hematological: No Bleeding, Weakness, No Enlarged Lyph Nodes, No Bruising, Fatigue, No Other Skin: No Skin Rash, No Lumps, No Erythema, No Dry Skin, No Moist Skin, No Other Psychiatric: Anxiety Vital Signs Vital Signs Temperature: 97.7 Pulse: 74 BP Systolic: 116 BP Diastolic: 62 Respiratory Rate: 16 O2 SAT: 89 O2 Delivery: Nasal Cannula Height (feet) 5 Height (inches) 71.00 Weight lb: 214 Weight oz: 2.0 Weight Kg (Vance): 97.113065 Pain: 0 ECOG-2 Capable of all self-care but unable to carry out any work activities. Up and about >50% of waking hours Physical Exam General: Looks Stable, Well Developed, Other HEENT: HEAD:Atraumatic Neck: Supple Lungs: Clear to Auscultation, Percussion Bilaterally (Diminshed breath sounds) Heart: Regular Rate and Rhythm Abdomen: Soft and Nontender Extremities: No Cyanosis, No Clubbing, No Edema, No Other Lymphatics: No Peripheral Lymphadenopathy, No Other Psychiatric: Mood appears normal, Affect appears normal Skin: No Skin Rashes, No Bruising, No Purpura, No Moist Desquamation, No Dry Desquamation, No Errythema, No Mild Errythema, No Moderate Errythema, No Severe Errythema, No Induration, No Other Breast: No No Masses, No No Nipple Discharge, No No Skin Changes, No Other Assessment and Plan Assessment and Plan Mr. 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 status post five cycles of carboplatin and pemetrexed as well as talc pleurodesis. Here for keytruda treatment. DIAGNOSTIC DATA CBC, and CMP within normal limits except Alkaline phosphate 147; 1. Recurrent mesothelioma on pembrolizumab,10/25/17 cycle#[address] abdomen and pelvis was unremarkable. His CT of the chest shows stable disease with overall improvement. He does continue to have severe emphysema. Managed by pulmonology. 2. Chronic obstructive pulmonary disease/emphysema on chronic O2. 7L at present time. Pulmonary f/u planned this November. We will provide patient with a Rx referral to Get Sleep studies. ideally patient to take sleep studies result to his upcoming Pulmonology appointment. patient informs me that he had used a C-pap at night approximately five years ago, but hit was uncomfortable keeping it on. He uses up to 15L oxygen nasal canula during Pulmonary rehab. and at home he uses 7liters. he is able to perform ADLs with frequent rests in between. Patient educated and rationale to gradually keep the C-pap on for better oxygen delivery to tissues. and lung. 3. Distant history of [place] 6 prostate cancer under control.[place] 6 in 2007 with approximately 5% of the total biopsy volume. Prebiopsy PSA was 6.0 ng /mL. The patient was treated with seed implant in 2008 and then external beam radiation therapy in 2011 for a rising PSA.last PSA on 01/04/2017 was 1.79. Consider PSA on 12/2017. 4. Anxiety/depression related to his shortness of breath, hypoxia. feels good today. CHRONIC 1. COPD on 4-7L of oxygen. 2. Macrocytosis. 3. Mesothelioma. 4. Renal insufficiency. 5. History of [place] 6 prostate cancer. Received radiation on two separate occludes, with the external beam radiation therapy being in 2011. 6. Hypercholesterolemia. 7. Former smoker. 8. reported sleep apnea, and previous trial usage of c-pap in the past. sleep studies Rx follow up. PLAN 1. Patient to proceed with treatment cycle #18 today of keytruda as planned 2. Sleep studies Rx referral provided today 3. f/u with Pulmonology in November 4. Continue Pulmonary rehab 5. Consider PSA on 12/2017, will discuss with Dr. Penny 6. 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 7. RTC per protocol, call cancer center with any issues or concerns. -Education, patient instructed to go to ER immediately and or call Clinic if any SOB, fevers, chills, cardiac type chest pain, bleeding, excessive bruising, headaches, blurry vision, pain unrelieved by medication TIME SPENT: 30 minutes 25 > minutes includes but not limited to discussion, counselling and co-ordination~ of care. Discussion with other health care providers, record review, review of lab work, diagnostic tests. Plan discussed extensively with patient. All the questions answered today. Thank you for the opportunity to be involved in the care of Quincy Sullivan. Billing Level: Return visit 4 LORRAINE SWARTZ, ONC Oct 25, 2017 10:12
[2017-11-15 09:22] VITALS: BP 111/61
[2017-11-15] MEDS: NS(*) 0.9% 100 ML BAG 100 ML IVPB PRN ×2 (09:30→12:58)
--- NOTE | 2017-11-15 14:01 | RADIOLOGY IMAGING REPORT ---
FACILITY: [facility] PATIENT NAME: Nate Mathew : 1940 MR: [id number] V: [id number] EXAM DATE: ORDERING PHYSICIAN: LORRAINE SWARTZ TECHNOLOGIST: Location: [facility] - [place], [place] Patient: Nate Mathew : 1940 Visit/Account:[id number] Date of Sevice: 11/15/2017 2 VIEWS CHEST INDICATION: Shortness of breath. COMPARISON: 08/23/2017. FINDINGS: Cardiomediastinal silhouette and pulmonary vessels within normal limits. There is no focal infiltrate or lobar consolidation. Stable mild blunting of the right costophrenic angle which could be due to pleural thickening or resi dual small effusion. No left effusion. No pneumothorax There continues be chronic interstitial changes, more prominent in the right lower lobe with some sca rring and unchanged from previous examination. No discrete nodule. Upper abdomen is unremarkable. No acute bony abnormality. IMPRESSION: 1. Stable chest without acute cardiopulmonary disease. Report Dictated By: Gopal Sarmiento at 11/15/2017 1:55 PM Report E-Signed By: Gopal Sarmiento at 11/15/2017 1:57 PM WSN:[id number]
[2017-11-15 14:54] VITALS: BP 131/62
--- NOTE | 2017-11-15 15:41 | EKG ---
FACILITY: [facility] PATIENT NAME: RACHEL PEREIRA : [id number] MR: [id number] V: [id number] EXAM DATE: ORDERING PHYSICIAN: LORRAINE SWARTZ TECHNOLOGIST: JAIDEN Shipley Reason : AFIB Blood Pressure : / mmHG Vent. Rate : 059 BPM Atrial Rate : 059 BPM P-R Int : 138 ms QRS Dur : 090 ms QT Int : 424 ms P-R-T Axes : 062 064 039 degrees QTc Int : 419 ms Sinus bradycardia T wave abnormality, consider anterior ischemia Abnormal ECG When compared with ECG of 19-MAR-2017 11:30, premature ventricular complexes are no longer present T wave inversion now evident in Anterior leads Confirmed by SEBLE MARIE ([id number]) on 11/15/2017 9:37:00 PM Referred By: Confirmed By:SEBLE MARIE
--- NOTE | 2017-11-15 16:16 | Oncology Progress Note ---
History of Present Illness Evaluation Evaluation Date: Nov 15, 2017 Evaluation Time: 11:45 Primary Care Provider Primary Care Provider: NELY Dowling Accompanied by Accompanied by: Smita Last seen by : Shania 10/03/2017 Chief Complaint Chief Complaint "Pain in upper center of abdomen, with SOB or when I get really winded, diarrhea x1 day plus dark stools" Oncology History Oncology History His oncology history is remarkable for a [place] 6 prostate cancer diagnosed in 2007, treated with seed implants, external beam radiation therapy. On two separate events he has had a slight rise in his PSA, and we will follow this. -He was diagnosed with malignant mesothelioma (pleural) status post five cycles of carboplatin and pemetrexed as well as talc pleurodesis. 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 Hx of AFib, was on xarelto, currently on aspirin 81mg Po daily. -Relapse in 2016 and was treated with pembrolizumab monotherapy and responding - 08/19-2012 patient had a large pleural effusion treated with thoracentesis. - 08/2016 he had a second thoracentesis done [facility]. Treatment Treatment Initiated on 10/2016 Pembrolizumab - 10 mg of prednisone daily stopped due interfering with the pembrolizumab versus benefitting his emphysema - Pulmonary Rehab and follow up with Pulmonary. - Cycle 18 of Keytruda today 10/25/17 - Cycle 18 of Keytruda today 11/15/17 HPI HPI Mr. 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 Currently on treatment with Pembrolizumab since 10/2016. status post five cycles of carboplatin and pemetrexed as well as talc pleurodesis. Patient presents to cancer center today accompany by his for his treatment of keytruda cycle#19 today 11/15/2017. He is AOOX4 and hemodynamically stable. He reports pain (level 5 on a 0-10 scale) in the mid epigastrium that radiates to the flank and the hips, to back of the neck and shoulders (CT on 09/20/17 revealed severe degenerative change of spine). Patient also reports chest tightness with deep breathing especially when his oxygen delivery via nasal canula is less than 7L. this resolves when he cranks O2 up to 10L. Reports dark stools ( PCP started him on PO iron supplement + Vitamin D3 over a month ago). He continues to have respiratory issues to include shortness of breath, mild wheezing, symptoms worsened with exertion.and light headedness with position changes. Patient continues to be on 7-10L nasal canula oxygen therapy. Overall patient is feeling relatively well. Denies N/V. no fevers, or chills at home, no recent infections or hospitalizations, No bruising , bleeding. No changes in weight, appetite, bowel or bladder pattern. 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 Hx of AFib, was on xarelto, currently on aspirin 81mg Po daily; Macrocytosis; COPD; Renal insufficiency; Hypercholesterolemia; IBS, reported sleep apnea as well as use of c-pap in the past. Living Conditions Lives with Ms. Ordoñez . Diagnostic Studies Result Diagram: 11/15/1793911/15/1740 PMH Patient History: FH: lymphoma BROTHER OR SISTER, , Onset:43 FH: prostate cancer FATHER, , Onset:71 BROTHER OR SISTER, Onset:64 Social/Occupational History Social History: Social History This is a 77 Yr old White male, he is M and has [] Children Hx Smoking: Yes Smoking Status: Former Smoker Exposure to Second Hand Smoke?: No When Quit Tobacco?: QUIT 1996 Allergies & Medications Allergies: Coded Allergies: No Known Allergies (Verified Allergy, Unknown, 03/19/17) Home Meds Active Scripts Prednisone 10 Mg Tab (PREDNISONE 10 MG TAB) 10 Mg Tab.ds.pk, 10 MG PO DAILY, # 30 TAB 3 Refills Prov:NEIDA PENNY MD 09/12/17 Linaclotide (LINZESS) 290 Mcg Capsule, 290 MCG PO DAILY, #30 CAPSULE 2 Refills Prov:NEIDA PENNY MD 07/30/17 Umeclidinium Brm/Vilanterol Tr (Anoro Ellipta 62.5-25 Mcg INH) 1 Each Disk.w.dev , 65.2 MCG PO DAILY for 60 Days, #120 MG 6 Refills Prov:FOREIGN GUERRERO TEAROOM HOST/HOSTESS-BC, ONC 02/14/17 Lorazepam (LORAZEPAM) 1 Mg Tab, 1 TAB PO PRN Y for ANXIETY, #60 TAB Prov:ANKIT RENEE MD 06/22/15 Albuterol Sulfate (ALBUTEROL SULFATE) 2.5 Mg/0.5 Ml Vial.neb, 2.5 MG IH Q6H, #30 Prov:MILADYS HUANG DO 09/22/13 Reported Medications Loratadine/Pseudoephedrine (CLARITIN-D 24 HOUR TABLET) 1 Each Tab.er.24h, 1 EACH PO DAILY 09/12/17 Pantoprazole Sodium (PANTOPRAZOLE SODIUM) 40 Mg Tablet.dr, 40 MG PO QDAY, TAB.SR 09/12/17 Sertraline Hcl (SERTRALINE HCL) 50 Mg Tablet, 1 TAB PO QDAY, TAB 06/18/17 Guaifenesin (MUCINEX) 1,200 Mg Tbmp.12hr, 1200 MG PO PRN 03/23/15 Aspirin (Children's Aspirin) 81 Mg Tab.chew, 1 TAB PO BID 03/23/15 Atorvastatin Calcium (ATORVASTATIN CALCIUM) 20 Mg Tablet, 1 TAB PO QDAY, TAB 03/23/15 Albuterol Sul Hfa 90 Mcg 8 Gm (VENTOLIN HFA 90 MCG 8 GM) 8.5 Gm Hfa.aer.ad, 2 PUFF IH Q6H 09/22/13 Bifidobacterium Infantis (ALIGN) 4 Mg Capsule, 4 MG PO QDAY, CAPSULE 05/02/13 Acetaminophen (TYLENOL) 325 Mg Tablet, 325-650 MG PO Q6H Y for PAIN Take as needed for mild pain relief 03/07/13 Pyridoxine Hcl (VITAMIN B-6) 100 Mg Tablet, 100 MG PO BID 10/31/12 Tamsulosin Hcl (FLOMAX) 0.4 Mg Cap.er.24h, 0.4 MG PO QODAY 09/25/12 Review of Systems Constitution: Denies Appetite/Weight Change, Denies Fever/Chills/Sweating, Denies Recent Infection, Denies Other HEENT: No EARS: Tinnitus, NOSE: Nasal Discharge, No THROAT: Sore Throat, No EYES: Dipolpia, No EARS: Hearing Problems, No NOSE: Epistaxis, No THROAT: Mouth Ulcers, No EYES: Vision Change, No OTHER Respiratory: Cough (at night), Shortness of Breath Cardiovascular: Chest Pain, No Orthopnea, No Edema, Palpitations, OTHER Gastrointestinal: No Nausea, No Vomitting, Diarrehea, No Constipation, No Heart Burn, No Swallowing Difficulties, Abdominal Pain, No Other Gentiourinary: No Hematuria, No Dysuria, No Nocturia, No Other Musculoskeletal: Muscle Pain, No Joint Pain, No Bone Pain, No Other Hematological: No Bleeding, Weakness, No Enlarged Lyph Nodes, No Bruising, Fatigue, No Other Skin: No Skin Rash, No Lumps, No Erythema, No Dry Skin, No Moist Skin, No Other Psychiatric: Anxiety Vital Signs Vital Signs Temperature: 96.9 Pulse: 60 BP Systolic: 111 BP Diastolic: 61 Respiratory Rate: 14 O2 SAT: 90 O2 Delivery: Nasal Cannula Height (feet) 5 Height (inches) 71.00 Weight lb: 214 Weight oz: 2.0 Weight Kg (Vance): 97.955388 Pain: 0 Physical Exam General: Looks Stable, Well Developed, Well Nourished (In indra cute distress), Other HEENT: HEAD:Atraumatic Neck: Supple Lungs: Percussion Bilaterally (Diminshed breath sounds), Other (Diminshed) Heart: Other (irregular pulse rate) Abdomen: Soft and Nontender, No Hepatosplenomegaly, No Masses, No Other Extremities: No Cyanosis, No Clubbing, No Edema, No Other Lymphatics: No Peripheral Lymphadenopathy, No Other Psychiatric: Mood appears normal, Affect appears normal Skin: No Skin Rashes, No Bruising, No Purpura, No Moist Desquamation, No Dry Desquamation, No Errythema, No Mild Errythema, No Moderate Errythema, No Severe Errythema, No Induration, No Other Breast: No No Masses, No No Nipple Discharge, No No Skin Changes, No Other Assessment and Plan Assessment and Plan Mr. 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 Currently on treatment with Pembrolizumab since 10/2016. status post five cycles of carboplatin and pemetrexed as well as talc pleurodesis. Patient presents to cancer center today accompany by his for his treatment of keytruda cycle#19 today 11/15/2017. He is AOOX4 and hemodynamically stable. He reports pain (level 5 on a 0-10 scale) in the mid epigastrium that radiates to the flank and the hips, to back of the neck and shoulders (CT on 09/20/17 revealed severe degenerative change of spine). Patient also reports chest tightness with deep breathing especially when his oxygen delivery via nasal canula is less than 7L. this resolves when he cranks O2 up to 10L. and light headedness with position changes. DIAGNOSTIC DATA CBC, and CMP within normal limits except ;BUN 25.0; CR 1.00; Total protein 4.5 ABG ( 6Liters nasal canula) PC02 is 31; P02 77; O2 st 96%; Base Excess -3.0 1. Recurrent mesothelioma on pembrolizumab,11/15/17 cycle#[address] abdomen and pelvis was unremarkable. His CT of the chest shows stable disease with overall improvement. He does continue to have severe emphysema. Managed by pulmonology. 2. Chronic obstructive pulmonary disease/emphysema on chronic O2. 7L at present time. patient reported epigastric pain, with increased SOB. the following work up was ordered for possible Hypoxemia; Pneumonitis, Pleural effusion, PNA, Colitis, or cardiac involvement: ABG, Chest Xray, ECG. except AFib, tests within normal range. patient has Pulmonary f/u planned this November. He is able to perform ADLs with frequent rests in between. Patient educated and rationale to gradually keep the C-pap on for better oxygen delivery to tissues. and lung. Steroids were Dc, 3. Distant history of [place] 6 prostate cancer under control.Narcisa 6 in 2007 with approximately 5% of the total biopsy volume. Prebiopsy PSA was 6.0 ng /mL. The patient was treated with seed implant in 2008 and then external beam radiation therapy in 2011 for a rising PSA.last PSA on 01/04/2017 was 1.79. Consider PSA on 12/2017. 4. History of Afib, heart rate today fluctuated in the 89-61 pulse rate. this couple with undefined epigastric pain ECG ordered, reveals AFib, currently on Aspirin , patient ro follow up with cardiology for review of treatment plan, and possibly adding a new agent. 6. Abdominal Pain, acute on chronic. patient report ongoing intermittent epigastric pain level 5 (0-10 scale) ongoing for the last 5-7 months, relieved by increased in oxygenation delivery. Denies any heart burn, abdominal soft non tender non distended, normoactive bowel sounds. CT done on 09/20/17 revealed no abnormalities. CHRONIC 1. COPD on 7-10L of oxygen. 2. Macrocytosis. 3. Mesothelioma. 4. Renal insufficiency. 5. History of [place] 6 prostate cancer. Received radiation on two separate occludes, with the external beam radiation therapy being in 2011. 6. Hypercholesterolemia. 7. Former smoker. 44 pack years 8. Reported sleep apnea, and previous trial usage of c-pap in the past. sleep studies Rx follow up. 9. IBS PLAN 1.chest Xray revealed No left effusion. No pneumothorax; without acute cardiopulmonary disease. based o nthis findings and clinical presentation we will proceed with treatment cycle #19 today of keytruda as planned 2. ECG done reveals AFib, patient on ASA, Recommend follow up appointment with Cardiology 3. Recommend referral f/u with GI 4. f/u with Pulmonology/ PFT in November 4. Continue Pulmonary rehab 5. Will discuss case with Dr. Penny, patient continues to be off the prednisone. 6. Patient to provide PFT from his manager web application f/u appointment this upcoming November, RN to scan reports in the chart. 7. Hold oral iron supplement for now 8. RTC per protocol, call cancer center with any issues or concerns. -Education, patient instructed to go to ER immediately and or call Clinic if increased SOB,abdominal pain, fevers, chills, cardiac type chest pain, bloody stool, or urine, bleeding, excessive bruising, headaches, blurry vision, pain unrelieved by medication TIME SPENT: 45 minutes 40 > minutes includes but not limited to discussion, counselling and co-ordination~ of care. Discussion with other health care providers, record review, review of lab work, diagnostic tests. Plan discussed extensively with patient. All the questions answered today. Thank you for the opportunity to be involved in the care of Quincy Sullivan. Billing Level: Return visit 5 LORRAINE SWARTZ, ONC Nov 15, 2017 16:16
[2017-12-06 09:27] VITALS: BP 135/72
[2017-12-06] MEDS: NS(*) 0.9% 100 ML BAG 100 ML IVPB PRN (09:39)
[2017-12-06 10:39] VITALS: BP 116/70
[~2017-12-10 09:46] MED LIST changes: +CHOL10005 PO; +DEXTROSE 5%(*) 100 ML BAG 100 ML IVPB PRN; +IRON150C19 PO; +LIDOCAINE/SOD BICARB 8.4% SYR ID PRN; +NS(*) 0.9% 500 ML BAG 500 ML IV PRN; +PEMBROLIZUMAB 100 MG/4 ML SDV 200 MG in NS(*) 0.9% 50 ML BAG 50 ML IV ONE
[2017-12-10 10:02] VITALS: BP 109/65
--- NOTE | 2017-12-11 15:52 | [facility] ONCOLOGY NOTE ---
EVENT DATE: December 10, 2017 CHIEF COMPLAINT/REASON FOR VISIT Mr. Mathew is a pleasant, 77-year-old gentleman with mesothelioma, on Keytruda, cycle 20, here for followup. HISTORY OF PRESENT ILLNESS Mr. Mathew returns. He is due for cycle 20 of his Keytruda later this month. He is doing quite well. Over the last year, I have seen him be considerably worse with COPD/emphysema. I believe he is in optimal control for him. His lungs sound excellent. His overlock sewing machine operator saw him recently and felt that his AFib is less frequent, and that may be cause for his improvement as well. No new symptoms. We discussed the pros and cons about the long-term pembrolizumab treatment, and he would like to continue after this discussion. We discussed goals of care including continuing therapy versus a transition to palliative care, but he would like to continue this therapy which is holding his disease in a nice remission. His was not here today as she is recovering from a UTI. No other new symptoms. ONCOLOGY HISTORY His oncology history is remarkable for a Narcisa 6 prostate cancer diagnosed in 2007, treated with seed implants and external beam radiation therapy. On two separate events, he has had a slight rise in his PSA, and we will follow this. He was diagnosed with malignant mesothelioma status post five cycles of carboplatin and pemetrexed as well as talc pleurodesis. Relapsed in 2017 and was treated with pembrolizumab monotherapy and responding. PAST MEDICAL/SURGICAL HISTORY 1. COPD, on 4 to 6L of oxygen. 2. Macrocytosis. 3. Mesothelioma. 4. Renal insufficiency. 5. History of [place] 6 prostate cancer. Received radiation on two separate occasions with the external beam radiation therapy being in 2011. 6. Hypercholesterolemia. 7. Former smoker. FAMILY HISTORY Remarkable for prostate cancer and lymphoma. SOCIAL HISTORY Patient is and has presented with his today. 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 REVIEW OF SYSTEMS CONSTITUTIONAL: No fevers, chills, weight change. HEENT: No headache or vision changes. CARDIOVASCULAR: No chest pain, dyspnea on exertion, or edema. RESPIRATORY: Chronic shortness of breath, on oxygen use. Positive cough which is unchanged. No wheezing. GASTROINTESTINAL: No nausea or vomiting. GENITOURINARY: No dysuria or hematuria. MUSCULOSKELETAL: No weakness or joint pain. PSYCHIATRIC: Positive depression, now on Zoloft. No anxiety. ENDOCRINE: No heat or cold intolerance. NEUROLOGIC: No deficits. SKIN: No concerning lesions or rashes. The remainder of the 14-point review of systems is otherwise negative. PHYSICAL EXAMINATION VITAL SIGNS: Blood pressure 109/65, pulse 98, respiratory rate 16, temperature 96.8 Fahrenheit, oxygen saturation 90%. Weight 87.9 kg. Pain zero/10, fatigue 3/10. GENERAL: Stable condition, resting comfortably in the chair. HEENT: Normocephalic, atraumatic. CARDIOVASCULAR: Regular rate and rhythm today. No evidence of atrial fibrillation. LUNGS: Clear to auscultation bilaterally. Mildly prolonged expiratory phase. No wheezing. I feel his lung exam is better today than it has been in the past. ABDOMEN: Soft, nontender. EXTREMITIES: No clubbing, cyanosis, or edema. SKIN: No concerning lesions or rashes. PSYCHIATRIC: Normal mood and affect. Remainder of physical exam unremarkable. IMPRESSION AND PLAN Mr. Mathew is a pleasant gentleman with the followin. Distant history of [place] 6 prostate cancer with no evidence of disease. 2. Recurrent mesothelioma, on Keytruda, receiving cycle 20 this month. His scans in September 2017 were unremarkable. He continues to have severe emphysema which is his primary issue. 3. Chronic obstructive pulmonary disease/emphysema, on chronic oxygen 6L. Overall, this is doing as best as it has in some time. 4. Anxiety/depression related to the shortness of breath and hypoxia, currently controlled. I answered all of his questions today. We had an excellent conversation about continuing the Keytruda, and he would like to continue this. We have discontinued the steroids, which I thought were helping with his emphysema/chronic obstructive pulmonary disease; however, this may have been due to intermittent atrial fibrillation which has been less of an issue recently. Will see the patient with every cycle. Answered all his questions today. BILLING Return visit level 4. [facility]
== END 2017-12-13 ==
LOC: ONC 09:46
PROVIDERS: ATTEND Internal Medicine
DX: C45.7 Mesothelioma of other sites (principal); J44.9 Chronic obstructive pulmonary disease, unspecified; Z99.81 Dependence on supplemental oxygen; Z85.46 Personal history of malignant neoplasm of prostate; Z92.3 Personal history of irradiation; R94.31 Abnormal electrocardiogram [ECG] [EKG]; Z87.891 Personal history of nicotine dependence; Z79.82 Long term (current) use of aspirin; R10.13 Epigastric pain
CPT/HCPCS: 36600; 71046; 82803; 83605; 83735; 84439; 84443; 84480; 84481; 85027; 93005; 96365; 96413; G0463; J7040; J7050; J9271; 82040; 82247; 82310; 82374; 82435; 82565; 82947; 84075; 84132; 84155; 84295; 84450; 84460; 84520; 99212

== ENCOUNTER → 2018-02-28 | Outpatient (CLI) | payer MEDICARE, BC ==
[~2018-02-28] MED LIST changes: -DEXTROSE 5%(*) 100 ML BAG 100 ML IVPB PRN; +DIPH-1 PO; -LIDOCAINE/SOD BICARB 8.4% SYR ID PRN; -NS(*) 0.9% 500 ML BAG 500 ML IV PRN; -PEMBROLIZUMAB 100 MG/4 ML SDV 200 MG in NS(*) 0.9% 50 ML BAG 50 ML IV ONE; +PRED20TA6 PO; +UBID50TA3 PO
== END ==
LOC: SPU 09:26
PROVIDERS: ATTEND Nurse Practitioner Family
DX: C45.0 Mesothelioma of pleura (principal); J98.9 Respiratory disorder, unspecified; E55.9 Vitamin D deficiency, unspecified; E78.00 Pure hypercholesterolemia, unspecified
CPT/HCPCS: 82306; 82465; 83718; 84478

== ENCOUNTER 2018-03-21 09:19 | Outpatient (RCR) | payer MEDICARE, BC ==
[2017-12-27 09:22] VITALS: BP 120/71
[2017-12-27] MEDS: NS(*) 0.9% 100 ML BAG 100 ML IVPB PRN (10:59)
[2017-12-27] MEDS: LIDOCAINE/SOD BICARB 8.4% SYR ID PRN (10:59)
[2017-12-27 11:29] VITALS: BP 124/70
--- NOTE | 2017-12-27 11:52 | Oncology Progress Note ---
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 On two separate events he has had a slight rise in his PSA, and we will follow this. -He was diagnosed with malignant mesothelioma (pleural) status post five cycles of carboplatin and pemetrexed as well as talc pleurodesis. 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 Hx of AFib, was on xarelto, currently on aspirin 81mg Po daily. -Relapse in 2016 and was treated with pembrolizumab monotherapy and responding - 08/19-2012 patient had a large pleural effusion treated with thoracentesis. - 08/2016 he had a second thoracentesis done [facility]. Treatment Treatment Initiated on 10/2016 Pembrolizumab - 10 mg of prednisone daily stopped due interfering with the Pembrolizumab versus benefitting his emphysema - Pulmonary Rehab and follow up with Pulmonary. - cycle#18 today 10/25/2017 - Cycle 19 of Keytruda today 11/15/17 - Cycle 21 of Keytruda today 12/27/17 HPI HPI Mr. 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 Jeana gooden on treatment with Pembrolizumab since 10/2016. status post five cycles of carboplatin and pemetrexed as well as talc pleurodesis. Patient presents to cancer center today accompany by his for his treatment of keytruda cycle#21 today 12/27/2017. He is AOOX4 and hemodynamically stable. He reports recoverign from [place] in the last 6 week or so, patient was treated by PCP with Lomotil and prednisone 60mg Po x10 doses. Patient reports only one loose BM in the last 24 hours, Stool specimen was negative for cdiff, no fevers at home, no nausea, no vomiting, he is hemodynamically stable and reports feeing better. He continues to have respiratory issues to include shortness of breath, mild wheezing, symptoms worsened with exertion.and light headedness with positional changes. Patient continues to be on 7-10L nasal canula oxygen therapy. Overall patient is feeling relatively well. Denies N/V. no fevers, or chills at home, No bruising , bleeding. reports having lost 7-10 lbs in the last week ( due to diarrhea) . 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 Hx of AFib, was on xa relto, currently on aspirin 81mg 2 tabs Po daily; Macrocytosis; COPD; Renal insufficiency; Hypercholesterolemia; IBS, reported sleep apnea as well as use of c-pap in the past. Living Conditions Lives with Ms. Ordoñez . Diagnostic Studies Result Diagram: 12/27/1740 12/27/17 0940 PMH Patient History: FH: lymphoma BROTHER OR SISTER, , Onset:43 FH: prostate cancer FATHER, , Onset:71 BROTHER OR SISTER, Onset:64 Social/Occupational History Social History: Social History This is a 77 Yr old White male, he is M and has [] Children Hx Smoking: Yes Smoking Status: Former Smoker Exposure to Second Hand Smoke?: No When Quit Tobacco?: QUIT 1996 Allergies & Medications Allergies: Coded Allergies: No Known Allergies (Verified Allergy, Unknown, 03/19/17) Home Meds Active Scripts Cholecalciferol (Vitamin D3) (VITAMIN D3) 1,000 Unit Tablet, 1000 UNIT PO 1-2XD for 1 Day, TAB Prov:DARRIUS-LORRAINE ENCISO PHONE BANKER-C, ONC 11/15/17 Iron Polysaccharides Complex (POLYSACCHARIDE IRON 150) 150 Mg Capsule, 150 MG PO 1-2XD for 1 Day, CAPSULE Prov:ECORO-LORRAINE ENCISO PHONE BANKER-C, ONC 11/15/17 Linaclotide (LINZESS) 290 Mcg Capsule, 290 MCG PO DAILY, #30 CAPSULE 2 Refills Prov:HEMALATHA,NEIDA R MD 07/30/17 Umeclidinium Brm/Vilanterol Tr (Anoro Ellipta 62.5-25 Mcg INH) 1 Each Disk.w.dev, 65.2 MCG PO DAILY for 60 Days, #120 MG 6 Refills Prov:FOREIGN GUERRERO PHONE BANKER-BC, ONC 02/14/17 Lorazepam (LORAZEPAM) 1 Mg Tab, 1 TAB PO PRN PRN for ANXIETY, #60 TAB Prov:ANKIT RENEE MD 06/22/15 Albuterol Sulfate (ALBUTEROL SULFATE) 2.5 Mg/0.5 Ml Vial.neb, 2.5 MG IH Q6H, #30 Prov:MILADYS HUANG DO 09/22/13 Reported Medications Loratadine/Pseudoephedrine (CLARITIN-D 24 HOUR TABLET) 1 Each Tab.er.24h, 1 EACH PO DAILY 09/12/17 Pantoprazole Sodium (PANTOPRAZOLE SODIUM) 40 Mg Tablet.dr, 40 MG PO QDAY, TAB.SR 09/12/17 Sertraline Hcl (SERTRALINE HCL) 50 Mg Tablet, 1 TAB PO QDAY, TAB 06/18/17 Guaifenesin (MUCINEX) 1,200 Mg Tbmp.12hr, 1200 MG PO PRN 03/23/15 Aspirin (Children's Aspirin) 81 Mg Tab.chew, 1 TAB PO BID 03/23/15 Atorvastatin Calcium (ATORVASTATIN CALCIUM) 20 Mg Tablet, 1 TAB PO QDAY, TAB 03/23/15 Albuterol Sul Hfa 90 Mcg 8 Gm (VENTOLIN HFA 90 MCG 8 GM) 8.5 Gm Hfa.aer.ad, 2 PUFF IH Q6H 09/22/13 Acetaminophen (TYLENOL) 325 Mg Tablet, 325-650 MG PO Q6H PRN for PAIN Take as needed for mild pain relief 03/07/13 Pyridoxine Hcl (VITAMIN B-6) 100 Mg Tablet, 100 MG PO BID 10/31/12 Tamsulosin Hcl (FLOMAX) 0.4 Mg Cap.er.24h, 0.4 MG PO QODAY 09/25/12 Review of Systems HEENT: NOSE: Nasal Discharge Respiratory: Cough, Shortness of Breath Cardiovascular: Chest Pain, Palpitations, OTHER Gastrointestinal: Diarrehea, Abdominal Pain Musculoskeletal: Muscle Pain Hematological: Weakness, Fatigue Psychiatric: Anxiety Vital Signs Vital Signs Temperature: 97.2 Pulse: 90 BP Systolic: 120 BP Diastolic: 71 Respiratory Rate: 16 O2 SAT: 89 O2 Delivery: Nasal Cannula Height (feet) 5 Height (inches) 71.00 Weight lb: 214 Weight oz: 2.0 Weight Kg (Vance): [id number] Pain: 0 Physical Exam General: Looks Stable, Well Developed, Well Nourished, Other HEENT: HEAD:Atraumatic Neck: Supple Lungs: Percussion Bilaterally, Other Heart: Other Abdomen: Soft and Nontender Psychiatric: Mood appears normal, Affect appears normal Assessment and Plan Assessment and Plan Mr. 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 Currently on treatment with Pembrolizumab since 10/2016. status post five cycles of carboplatin and pemetrexed as well as talc pleurodesis. Patient presents to cancer center today accompany by his for his treatment of keytruda cycle#2 1 today 12/27/2017. He is AOOX4 and hemodynamically stable. He reports recoverign from Dirreha in the last 6 week or so, patient was treated by PCP with Lomotil and prednisone 60mg Po x10 doses. Patient reports only one loose BM in the last 24 hours, Stool specimen was negative for cdiff, no fevers at home, no nausea, no vomiting, he is hemodynamically stable and reports feeing better. 1. Recurrent mesothelioma on pembrolizumab,12/27/17 cycle#[address] ab domen and pelvis was unremarkable. His CT of the chest shows stable disease with overall improvement. He does continue to have severe emphysema. Managed by pulmonology. 2. Chronic obstructive pulmonary disease/emphysema on chronic O2. 7L at present time. patient is been managed by Pulmonary . He is able to perform ADLs with frequent rests in between. Patient educated and rationale to gradually keep the C-pap on for better oxygen delivery to tissues. and lung. Steroids were Dc, due interfering with the Pembrolizumab versus benefitting his emphysema. 3. Distant history of Narcisa 6 prostate cancer under control.Narcisa 6 in 2007 with approximately 5% of the total biopsy volume. Prebiopsy PSA was 6.0 ng/mL. The patient was treated with seed implant in 2008 and then external beam radiation therapy in 2011 for a rising PSA.last PSA on 01/04/2017 was 1.79. Consider PSA on 12/2017. 4. History of Afib, last ECG revealed AFib, currently on Aspirin 160mg Po daily per patient cardiology increased his dose. 5. Diarrhea- chemo related , in the setting of antineoplastic agent, patient was treated by PCP with Lomotil and prednisone 60mg Po x10 doses. Patient reports only one loose BM in the last 24 hours, Stool specimen was negative for cdiff, no fevers at home, no nausea, no vomiting, he is hemodynamically stable and reports feeing better. Instructed patient to stop taking prednisone as of today, since resolution of diarrhea and possible interfering with keytruda. We will hydrate patient, and monitor lytes PRN 6. History of Abdominal Pain, acute on chronic. patient report ongoing intermittent epigastric pain level 5 (0-10 scale) ongoing for the last 5-7 months, relieved by increased in oxygenation delivery. Denies any heart burn, abdominal soft non tender non distended, normoactive bowel sounds. CT done on 09/20/17 revealed no abnormalities. CHRONIC 1. COPD on 7-10L of oxygen. 2. Macrocytosis. 3. Mesothelioma. 4. Renal insufficiency. 5. History of Narcisa 6 prostate cancer. Received radiation on two separate occludes, with the external beam radiation therapy being in 2011. 6. Hypercholesterolemia. 7. Former smoker. 44 pack years 8. Reported sleep apnea, and previous trial usage of c-pap in the past. sleep studies Rx follow up. 9. IBS PLAN 1.Proceed with keytruda ,12/27/17 cycle#21 today - Hold steroids for now. Planned discussed with Dr. Jauregui -Continue to take Lomotil as prescribed _ Nutrition management instructions in the setting of diarrhea reinforced to patient,a s well as reminded to read over the nutrition handout. - Patient to receive 1Liter NS hydration on Sunday12/31/17 - Continue ASA 2 tabs of 81mg Po daily per cardiology recommendation - Continue to follow up with multidisciplinary team, GI/Cardio/ pulmo/PCP - RTC per protocol, call cancer center with any issues or concerns. -Education, patient instructed to go to ER immediately and or call Clinic if increased SOB, more than 6 bowel movements per day, abdominal pain, fevers, chills, cardiac type chest pain, bloody stool, or urine, bleeding, excessive bruising, headaches, blurry vision, pain unrelieved by medication TIME SPENT: 30 minutes 25 > minutes includes but not limited to discussion, counselling and co-ordination~ of care. Discussion with other health care providers, record review, review of lab work, diagnostic tests. Plan discussed extensively with patient. All the questions answered today. Thank you for the opportunity to be involved in the care of Quincy Sullivan. Billing Level: Return visit 4 LORRAINE SWARTZ, ONC Dec 27, 2017 11:51
[2017-12-31 12:51] VITALS: BP 124/66
[2017-12-31] MEDS: NS(*) 0.9% 1000 ML BAG 1,000 ML IV PRN (13:00)
[2017-12-31] MEDS: LIDOCAINE/SOD BICARB 8.4% SYR ID PRN (13:02)
[2017-12-31 14:33] VITALS: BP 132/75
[2018-01-02 12:54] VITALS: BP 127/72
[2018-01-02] MEDS: LIDOCAINE/SOD BICARB 8.4% SYR ID PRN (13:02)
[2018-01-02] MEDS: NS(*) 0.9% 1000 ML BAG 1,000 ML IV PRN (13:02)
[2018-01-21 09:48] VITALS: BP 102/62
--- NOTE | 2018-01-22 14:45 | ONCOLOGY FOLLOW UP NOTE ---
EVENT DATE: January 21, 2018 CHIEF COMPLAINT/REASON FOR VISIT Mr. Mathew is a very pleasant patient of NELY Dowling, and Dr. Kiser, who presents to discuss his mesothelioma with mediastinal lymph node involvement, currently on Keytruda, cycle 22 planned for February 2018. HISTORY OF PRESENT ILLNESS Mr. Mathew returns. He has received 21 cycles of Keytruda. Recently, he has been struggling with diarrhea this summer, and so Dr. Kiser's team recommended holding the Keytruda temporarily. He has also had issues with COPD and emphysema this year and has felt unwell. It is unclear whether this is related to the Keytruda or not. We typically see autoimmune side effects such as GI issues early in treatment as opposed to late, but it could happen at any time. We are going to hold the January doses including January 18 and February 08. We hope to resume in February assuming he is doing well. No other issues. He is having a good day today. He continues to struggle with COPD, but is on a stable dose of oxygen right now. ONCOLOGY HISTORY His oncology history is remarkable for a [place] 6 prostate cancer diagnosed in 2007, treated with seed implants and external beam radiation therapy. On two separate events, he has had a slight rise in his PSA, and we will follow this. He was diagnosed with malignant mesothelioma status post five cycles of carboplatin and pemetrexed as well as talc pleurodesis. Relapsed in 2016 and was treated with pembrolizumab monotherapy and responding. PAST MEDICAL/SURGICAL HISTORY 1. COPD, on 4 to 6L of oxygen. 2. Macrocytosis. 3. Mesothelioma. 4. Renal insufficiency. 5. History of [place] 6 prostate cancer. Received radiation on two separate occasions with the external beam radiation therapy being in 2011. 6. Hypercholesterolemia. 7. Former smoker. FAMILY HISTORY Remarkable for prostate cancer and lymphoma. SOCIAL HISTORY Patient is and has presented with his today. 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 REVIEW OF SYSTEMS CONSTITUTIONAL: No fevers, chills, weight change. HEENT: No headache or vision changes. CARDIOVASCULAR: No chest pain, dyspnea on exertion, or edema. RESPIRATORY: Chronic shortness of breath, on oxygen use. Positive cough which is unchanged. No wheezing. GASTROINTESTINAL: No nausea or vomiting. GENITOURINARY: No dysuria or hematuria. MUSCULOSKELETAL: No weakness or joint pain. PSYCHIATRIC: Positive depression, now on Zoloft. No anxiety. ENDOCRINE: No heat or cold intolerance. NEUROLOGIC: No deficits. SKIN: No concerning lesions or rashes. The remainder of the 14-point review of systems is otherwise negative. PHYSICAL EXAMINATION VITAL SIGNS: Blood pressure 102/62, pulse 98, pulse 87, respiratory rate 16, temperature 96.9 Fahrenheit, oxygen saturation 90% on 4L. Weight 87.2 kg. Pain zero/10, fatigue zero/10. GENERAL: Stable condition, resting comfortably in the chair. HEENT: Normocephalic, atraumatic. CARDIOVASCULAR: Regular rate and rhythm. LUNGS: Clear. ABDOMEN: Soft, nontender. EXTREMITIES: No clubbing, cyanosis, or edema. RESPIRATORY: He does have prolonged expiration phase, but in general, it is much better than it has been in the past. SKIN: Good color. No rashes of concern. Remainder of physical exam otherwise unremarkable. IMPRESSION/REPORT/PLAN Mr. Mathew is a very pleasant gentleman with the followin. Distant history of Narcisa 6 prostate cancer with no evidence of disease. 2. Recurrent mesothelioma, on Keytruda. He has received 21 cycles. His scans in September 2017 were unremarkable. He continues to have severe emphysema which is his major issue. 3. Chronic obstructive pulmonary disease/emphysema, on chronic oxygen 4L to 6L. Currently, it is 4L. 4. Anxiety/depression related to the shortness of breath and hypoxia, currently controlled. 5. Diarrhea, unclear etiology. This is a little later than expected with Keytruda, but it can happen at any time. I agree with Dr. Kiser's plan to hold his January two doses and see if he improves. I think it is reasonable to rechallenge him in February, and if the diarrhea returns, we could consider a therapy holiday as he is currently having his disease under control. I answered all of his questions today. Would like to minimize steroid use for his chronic obstructive pulmonary disease/emphysema unless he has a significant exacerbation. Thankfully, he has not had an exacerbation for a few months now. I answered all of his questions today. BILLING Return visit level 4. Total time 30 minutes, counseling time 20. SEAN
[2018-02-28 09:24] VITALS: BP 107/72
[2018-02-28] MEDS: LIDOCAINE/SOD BICARB 8.4% SYR ID PRN (09:46)
[2018-02-28] MEDS: NS(*) 0.9% 100 ML BAG 100 ML IVPB PRN ×2 (09:46→10:07)
[2018-02-28 11:27] VITALS: BP 108/65
[2018-03-20 10:15] VITALS: BP 135/70
[~2018-03-21] VITALS: Ht 180.3 cm; Wt 88.5 kg
--- NOTE | 2018-03-21 02:38 | [facility] ONCOLOGY NOTE ---
EVENT DATE: March 20, 2018 CHIEF COMPLAINT/REASON FOR VISIT Mr. Mathew is a very pleasant 78-year-old gentleman with mesothelioma with mediastinal lymph node involvement, currently on Keytruda, cycle 25 coming up tomorrow. HISTORY OF PRESENT ILLNESS Mr. Mathew returns. He has received 24 cycles of Keytruda. He had significant diarrhea this summer, and we held the Keytruda temporarily. He was put on a short course of steroids and Lomotil by his primary care provider and this helped. We have now been able to rechallenge him with Keytruda, and he is doing well, with rare diarrhea. He has also had issues with COPD and emphysema this year. We held the January doses but then resumed Keytruda in February, and he received two doses at that time, with the next dose planned for tomorrow. One episode of diarrhea, which is not unusual. He continues to struggle with COPD. He has been fighting an upper respiratory infection for about one to two weeks, he believes. His lung exam is normal. I do not believe that he has pneumonia. His pharyngeal exam does show some significant erythema and swelling, but not consistent with strep throat, as it is more muted. No other issues today. ONCOLOGY HISTORY His oncology history is remarkable for a [place] 6 prostate cancer diagnosed in 2007, treated with seed implants and external beam radiation therapy. On two separate events, he has had a slight rise in his PSA, and we will follow this. He was diagnosed with malignant mesothelioma status post five cycles of carboplatin and pemetrexed as well as talc pleurodesis. Relapsed in 2016 and was treated with pembrolizumab monotherapy and responding. PAST MEDICAL/SURGICAL HISTORY 1. COPD, on 4L to 6L of oxygen. 2. Macrocytosis. 3. Mesothelioma. 4. Renal insufficiency. 5. History of [place] 6 prostate cancer. Received radiation on two separate occasions with the external beam radiation therapy being in 2011. 6. Hypercholesterolemia. 7. Former smoker. FAMILY HISTORY Remarkable for prostate cancer and lymphoma. SOCIAL HISTORY Patient is and has presented with his today. 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 REVIEW OF SYSTEMS CONSTITUTIONAL: No fevers, chills, weight change. HEENT: No headache or vision changes. CARDIOVASCULAR: No chest pain, dyspnea on exertion, or edema. RESPIRATORY: Chronic shortness of breath, on oxygen use. Positive cough which is unchanged. No wheezing. Positive upper respiratory symptoms and rhinorrhea. GASTROINTESTINAL: No nausea or vomiting. GENITOURINARY: No dysuria or hematuria. MUSCULOSKELETAL: No weakness or joint pain. PSYCHIATRIC: Positive depression, now on Zoloft. No anxiety. ENDOCRINE: No heat or cold intolerance. NEUROLOGIC: No deficits. SKIN: No concerning lesions or rashes. The remainder of the 14-point review of systems is otherwise negative. PHYSICAL EXAMINATION VITAL SIGNS: Blood pressure 135/70, pulse 77, respiratory rate 16, temperature 96.8 Fahrenheit, oxygen saturation 91% on 8L. Weight 88.7 kg. Pain 0/10, fatigue 7/10. GENERAL: Stable condition, nontoxic. ECOG performance status of 1 to 2. CARDIOVASCULAR: Regular rate and rhythm. LUNGS: Clear to auscultation bilaterally. Prolonged expiratory phase, but no wheezes, crackles, or any other abnormalities. This is similar with his baseline lung exam. ABDOMEN: Soft, nontender. EXTREMITIES: No clubbing, cyanosis, or edema. SKIN: No concerning rashes. Good color. Remainder of physical exam otherwise unremarkable. IMPRESSION/REPORT/PLAN Mr. Mathew is a very pleasant gentleman with the followin. Distant history of Narcisa 6 prostate cancer with no evidence of disease. 2. Recurrent mesothelioma, on Keytruda. He has received 24 cycles. He has scans pending with Dr. Kiser later this month. He continues to have severe emphysema, which is his major issue. 3. Chronic obstructive pulmonary disease/emphysema, on chronic oxygen, typically 4L to 6L, now on 8L due to an upper respiratory infection. 4. Upper respiratory infection. I am concerned that this started viral, and now he has erythema that is significant, and I am concerned he is developing a bacterial infection. No fever today. Given his chronic obstructive pulmonary disease, though, I would like to give him three days of prednisone and a course of antibiotics with a Z-Bernabe. 5. Diarrhea, unclear etiology, but I suspect it was related to the Keytruda. We held his January doses and he improved. The Lomotil was helpful as well, but we have been able to discontinue the Lomotil. Will see Dr. Kiser with scans later this month. Agree with trying to minimize steroids, but given his increased oxygen needs and potential for worsening chronic obstructive pulmonary disease exacerbation, I think it is warranted to try to give three days to avoid hospitalization and prolonged steroids. Answered all of his questions today. BILLING Return visit level 4. Total time 30 minutes, counseling time 20. High risk, high complexity. JONYD
[~2018-03-21 09:19] MED LIST changes: +AZIT-17 PO; +DEXTROSE 5%(*) 100 ML BAG 100 ML IVPB PRN; +INFLUENZA VIRUS VAC 0.5ML SYR IM ONLY ONE; +PEMBROLIZUMAB 100 MG/4 ML SDV 200 MG in NS(*) 0.9% 50 ML BAG 50 ML IV ONE
[2018-03-21 09:46] VITALS: BP 113/70
[2018-03-21] MEDS: NS(*) 0.9% 100 ML BAG 100 ML IVPB PRN (09:46)
[2018-03-21] MEDS: LIDOCAINE/SOD BICARB 8.4% SYR ID PRN (09:46)
[2018-03-21] MEDS ORDERED: PEMBROLIZUMAB 100 MG/4 ML SDV 200 MG in NS(*) 0.9% 50 ML BAG 50 ML IV ONE (10:20)
[2018-03-21 11:01] VITALS: BP 135/76
== END 2018-03-26 ==
LOC: ONC 09:19
PROVIDERS: ATTEND Internal Medicine
DX: C45.7 Mesothelioma of other sites (principal); C77.1 Secondary and unspecified malignant neoplasm of intrathoracic lymph nodes; Z92.21 Personal history of antineoplastic chemotherapy; J44.9 Chronic obstructive pulmonary disease, unspecified; N28.9 Disorder of kidney and ureter, unspecified; E78.00 Pure hypercholesterolemia, unspecified; K58.9 Irritable bowel syndrome, unspecified; G47.30 Sleep apnea, unspecified; Z23 Encounter for immunization; J06.9 Acute upper respiratory infection, unspecified; Z92.3 Personal history of irradiation; Z99.81 Dependence on supplemental oxygen
CPT/HCPCS: 82306; 83735; 84439; 84443; 84480; 85027; 90471; 96360; 96361; 96365; 96413; G0463; J7030; J7050; J9271; Q2037; 82040; 82247; 82310; 82374; 82435; 82465; 82565; 82947; 83718; 84075; 84132; 84155; 84295; 84450; 84460; 84478; 84520; 90674; 99212

== ENCOUNTER → 2018-04-22 | Outpatient (CLI) | payer MEDICARE, BC ==
[~2018-04-22] MED LIST changes: -DEXTROSE 5%(*) 100 ML BAG 100 ML IVPB PRN; -INFLUENZA VIRUS VAC 0.5ML SYR IM ONLY ONE; -PEMBROLIZUMAB 100 MG/4 ML SDV 200 MG in NS(*) 0.9% 50 ML BAG 50 ML IV ONE
--- NOTE | 2018-04-22 13:32 | RADIOLOGY IMAGING REPORT ---
FACILITY: [facility] - [place] PATIENT NAME: Nate Mathew : 1940 MR: [id number] V: [id number] EXAM DATE: ORDERING PHYSICIAN: NEIDA PENNY TECHNOLOGIST: Location[place] [facility] [place] Patient: Nate Mathew : 1940 Visit/Account:[id number] Date of Sevice: 04/22/2018 XR SHOULDER 2 VIEWS, SHOULDER MIN 2 VIEWS RIGHT HISTORY: Fall six days ago with bilateral shoulder pain Additional history: None COMPARISON: None. FINDINGS: Four views of both right and left shoulder. Right shoulder: No fractures identified. Mildly high riding humeral head. There is osteophytosis at the acromioclavicular joint including inferior directed osteophyte. No evidence of dislocation. Left shoulder: Osseous structures intact without evidence of fracture or dislocation. There is a mil dly high riding left humeral head. Osteophytosis is seen at the acromioclavicular joint including in ferior directed osteophytes. IMPRESSION: No evidence of acute trauma. Bilateral AC osteoarthropathy and findings suspicious for bilateral rotator cuff pathology which coul d best be evaluated by MRI Report Dictated By: Daniel Ruiz MD at 04/22/2018 1:23 PM Report E-Signed By: Daniel Ruiz MD at 04/22/2018 1:27 PM WSN:[email or web address]
--- NOTE | 2018-04-22 13:33 | RADIOLOGY IMAGING REPORT ---
FACILITY: [facility] PATIENT NAME: Nate Mathew : 1940 MR: [id number] V: [id number] EXAM DATE: ORDERING PHYSICIAN: NEIDA PENNY TECHNOLOGIST: [place] [facility] [place] : 1940 Visit/Account:[id number] Date of Sevice: 04/22/2018 XR SHOULDER 2 VIEWS, SHOULDER MIN 2 VIEWS RIGHT HISTORY: Fall six days ago with bilateral shoulder pain Additional history: None COMPARISON: None. FINDINGS: Four views of both right and left shoulder. Right shoulder: No fractures identified. Mildly high riding humeral head. There is osteophytosis at the acromioclavicular joint including inferior directed osteophyte. No evidence of dislocation. Left shoulder: Osseous structures intact without evidence of fracture or dislocation. There is a mil dly high riding left humeral head. Osteophytosis is seen at the acromioclavicular joint including in ferior directed osteophytes. IMPRESSION: No evidence of acute trauma. Bilateral AC osteoarthropathy and findings suspicious for bilateral rotator cuff pathology which coul d best be evaluated by MRI Report Dictated By: Daniel Ruiz MD at 04/22/2018 1:23 PM Report E-Signed By: Daniel Ruiz MD at 04/22/2018 1:27 PM WSN:[email or web address]
== END ==
LOC: RAD 11:48
PROVIDERS: ATTEND Internal Medicine
DX: C45.7 Mesothelioma of other sites (principal); C61 Malignant neoplasm of prostate

== ENCOUNTER → 2018-05-17 | Outpatient (CLI) | payer MEDICARE, BC ==
--- NOTE | 2018-05-17 18:00 | RADIOLOGY IMAGING REPORT ---
FACILITY: [facility] - [place] PATIENT NAME: Nate Mathew : 1940 MR: [id number] V: [id number] EXAM DATE: ORDERING PHYSICIAN: FOREIGN GUERRERO TECHNOLOGIST: Location: [facility] - [place] Patient: Nate Mathew : 1940 Visit/Account:[id number] Date of Sevice: 05/17/2018 CHEST PA LAT INDICATION: Cough, shortness of breath COMPARISON: 11/15/2017 FINDINGS: Heart size within normal limits. Reidentified is diffuse chronic interstitial change with bibasilar scarring and pleural parenchymal t hickening involving the right hemidiaphragm. No infiltrate is identified. There is no pneumothorax or pleural effusion. IMPRESSION: 1. Stable chronic interstitial lung disease, no acute abnormality identified Report Dictated By: Mario Minaya at 05/17/2018 5:46 PM Report E-Signed By: Mario Minaya at 05/17/2018 5:49 PM WSN:[email or web address] ALBERTO
== END ==
LOC: RAD 10:33
PROVIDERS: ATTEND Nurse Practitioner Family
DX: R91.8 Other nonspecific abnormal finding of lung field (principal)
CPT/HCPCS: 71046

== ENCOUNTER 2018-05-23 10:00 | Outpatient (RCR) | payer MEDICARE, BC ==
[2018-04-12 09:38] VITALS: BP 106/62
[2018-04-12] MEDS: NS(*) 0.9% 100 ML BAG 100 ML IVPB PRN (10:35)
[2018-04-12] MEDS: LIDOCAINE/SOD BICARB 8.4% SYR ID PRN (10:38)
[2018-04-12 11:18] VITALS: BP 120/91
--- NOTE | 2018-04-12 13:24 | ONCOLOGY FOLLOW UP NOTE ---
EVENT DATE: April 12, 2018 CHIEF COMPLAINT Followup for recurrent mesothelioma. HISTORY OF PRESENT ILLNESS Patient is a 78-year-old male who is seen today for consideration of cycle #5 of Keytruda. He has been tolerating this fairly well. He did have significant diarrhea over the summer. Treatment was held temporarily but this resolved with a short course of prednisone. He has minimal diarrhea, approximately 1 episode every two to three weeks. He is chronically fatigued. He is now on oxygen 10L per minute, which has been somewhat overwhelming for him. Most recent CT of the chest per Dr. Kiser was stable. He denies any other new complaints. ONCOLOGY HISTORY Patient was diagnosed with a Narcisa 6 prostate cancer in 2007, treated with seed implants and external beam radiation therapy. He had two separate episodes of a slight rise in his PSA but this has stabilized. He was then diagnosed with malignant mesothelioma. He underwent five cycles of carboplatin and pemetrexed as well as talc pleurodesis. He relapsed in 2017 and began Keytruda monotherapy. PAST MEDICAL/SURGICAL HISTORY 1. COPD, currently on 10L oxygen. 2. Macrocytosis. 3. Mesothelioma. 4. History of Barnwell 6 prostate cancer, 2007. 5. Renal insufficiency. 6. Hyperlipidemia. 7. Former smoker. 8. Pulmonary fibrosis. FAMILY HISTORY Remarkable for prostate cancer and lymphoma. SOCIAL HISTORY Patient is . He has three grown sons. 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 He is a former smoker. REVIEW OF SYSTEMS A 12-point review of systems is performed and is negative except as stated above. PHYSICAL EXAMINATION VITAL SIGNS: Weight 86.6 kg, BP 106/62, P 98, R 17, temperature 96.9, O2 sat 70% on room air, improved to 93% on 6L oxygen. GENERAL: Patient is a well-developed, fatigued appearing male in no acute distress. HEAD: Normocephalic, atraumatic. EYES: Sclerae anicteric. EOM's intact. MOUTH: Moist mucous membranes. No lesions noted. NECK: Supple. No palpable adenopathy. LUNGS: Slightly diminished but clear bilaterally. CARDIOVASCULAR: Heart rate regular, 96 per minute without murmur, S3 or S4. ABDOMEN: Soft, nontender with active bowel sounds. EXTREMITIES: Trace pedal edema bilaterally. NEURO: Nonfocal. LABS CBC today reveals a WBC of 8.6, hemoglobin 14.5, hematocrit 43.3, platelets 242,000. CMP is within normal limits. TSH, T3 and T4 are pending. IMPRESSION/REPORT/PLAN The patient is a 78-year-old male with a history of Barnwell 6 prostate cancer, diagnosed in 2007, status post seed implant as well as external beam radiation. Developed mesothelioma and treated with five cycles of carboplatin and pemetrexed as well as talc pleurodesis. Relapsed in 2017 and has been on Keytruda monotherapy since that time. 1. Mesothelioma. Cycle #25 of Keytruda. He is tolerating this well. He has had no recurrence of significant diarrhea. 2. Response. Underwent CT of the chest per Dr. Kiser on April 11, 2018. This showed stable post-treatment changes. There was no change in the scattered pulmonary nodules and his emphysema and pulmonary fibrosis were also unchanged. 3. COPD. Continue oxygen, now up to 10L per nasal cannula. He believes this is working well. 4. Vitamin D deficiency. Noted to have low vitamin D of 27. He is on replacement. 5. Fatigue, chronic. CBC is within normal limits. He understands that his lung disease is likely causing this more than anything else. 6. Prostate cancer. PSA is pending today. Last PSA was 1.79. 7. Followup for continued care, earlier if there is a problem. MTDD
[2018-04-12 14:46] VITALS: BP 120/90
[2018-04-22 11:08] VITALS: BP 112/68
--- NOTE | 2018-04-23 05:23 | SCH[facility]ER ONCOLOGY NOTE ---
EVENT DATE: April 22, 2018 CHIEF COMPLAINT/REASON FOR VISIT Mr. Mathew is a pleasant 78-year-old gentleman who presents for an acute visit to answer questions while on Keytruda for recurrent mesothelioma. HISTORY OF PRESENT ILLNESS Nate perez. He has been on Keytruda since October 2016 with a plan to treat for two years. He had a short break in the fall of 2017 due to diarrhea, believed to potentially be immune-mediated and related to Keytruda. We held it and he received some prednisone briefly. He is now feeling better and has minimal diarrhea. He does have chronic fatigue. He is now on oxygen 8L to 10L per minute, and this has been overwhelming for him. I believe his emphysema is his biggest issue. I would like to complete the protocol for two years of pembrolizumab; however, we discussed today how, if he worsens from the lung perspective, we may need to discontinue and add steroids. At this time he thinks it is tolerable and would like to continue with the Keytruda, which is excellent. Answered all of his many questions today. One of the issues we discussed is bilateral shoulder pain, which he has after a fall. He woke up in the middle of the night, stood up, went to the bathroom, and then likely had a syncopal episode, as he has no memory of it, and fell flat on the floor. Thankfully, he not hit his head. He has bilateral shoulder pain today, right greater than left. Even though he fell forward, he has pain in the back of the shoulder. Rotator cuff evaluation did not show any deficits of concern. Thus, I plan to get some imaging. ONCOLOGY HISTORY Patient was diagnosed with a Custer 6 prostate cancer in 2007, treated with seed implants and external beam radiation therapy. He had two separate episodes of a slight rise in his PSA but this has stabilized. He was then diagnosed with malignant mesothelioma. He underwent five cycles of carboplatin and pemetrexed as well as talc pleurodesis. He relapsed in 2016 and began Keytruda monotherapy. PAST MEDICAL/SURGICAL HISTORY 1. COPD, currently on 10L oxygen. 2. Macrocytosis. 3. Mesothelioma. 4. History of Narcisa 6 prostate cancer, 2007. 5. Renal insufficiency. 6. Hyperlipidemia. 7. Former smoker. 8. Pulmonary fibrosis. FAMILY HISTORY Remarkable for prostate cancer and lymphoma. SOCIAL HISTORY Patient is . He has three grown sons. 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 He is a former smoker. REVIEW OF SYSTEMS CONSTITUTIONAL: No fevers or chills. Positive fatigue. HEENT: No headache, vision changes, or hearing changes. CARDIOVASCULAR: No chest pain, dyspnea on exertion, or edema. RESPIRATORY: Positive emphysema, chronic O2 use, dyspnea on exertion. GASTROINTESTINAL: No nausea or vomiting. Constipation is resolved. He has rare diarrhea now. GENITOURINARY: No dysuria or hematuria. MUSCULOSKELETAL: No weakness or joint pain. PSYCHIATRIC: No anxiety or depression. NEUROLOGIC: No focal deficits. HEMATOLOGIC: No bruising or bleeding. SKIN: No concerning rashes or lesions. Remainder of 14-point review of systems otherwise negative. PHYSICAL EXAMINATION VITAL SIGNS: Blood pressure 112/68, pulse 95, respiratory rate 18, oxygen saturation 88% on 8L. Pain 6/10, fatigue 0/10. His pain is in the right shoulder related to a fall that he suffered after going to the bathroom in the middle of the night recently. IMPRESSION/REPORT/PLAN Mr. Mathew is a very pleasant 78-year-old with the followin. Recurrent mesothelioma, cycle 25 of Keytruda completed. Plan to treat for two years. No recurrence of significant diarrhea, and has rare diarrhea. 2. Chronic obstructive pulmonary disease/emphysema. Continue on oxygen. This is his biggest issue at this time. 3. Chronic fatigue, mostly related to his lung disease. 4. History of prostate cancer. His PSA went from 1.79 to 2.2. We will watch this. I do not believe that this is his most pressing issue at this time, and adding androgen deprivation therapy, given his fatigue and breathing issues, would not be advised at this moment, but we need to continue to follow this. Answered all of his questions. I would like to get x-rays of his shoulders and ribs to see if there was a fracture after this fall. I think this was a post- urination syncopal episode unrelated to his cancer. He should follow up with his primary care provider as well. We would like to continue the Keytruda. As noted above in the HPI, if he worsens from the respiratory standpoint, we may need to discontinue cancer-based therapy and address his emphysema more aggressively in the future. However, if it is stable, I would like to complete two years of Keytruda as recommended by Dr. Roberto Kiser. Reviewed the imaging and notes from [facility] in detail today. BILLING Return patient level 4. Total time 30 minutes, counseling time 20. MTDD
[2018-05-02 10:02] VITALS: BP 122/81
[2018-05-02] MEDS: LIDOCAINE/SOD BICARB 8.4% SYR ID PRN (10:29)
[2018-05-02 11:38] VITALS: BP 121/75
--- NOTE | 2018-05-02 11:52 | RADIOLOGY IMAGING REPORT ---
FACILITY: [facility] - [place] PATIENT NAME: Nate Mathew : 1940 MR: [id number] V: [id number] EXAM DATE: ORDERING PHYSICIAN: NEIDA PENNY TECHNOLOGIST: Location: [facility] Patient: Nate Mathew : 1940 Visit/Account:[id number] Date of Sevice: 05/02/2018 Exam type: RIBS RIGHT History: Fall onto right ribs 04/08/2018 with pain Comparison: Two-view chest November 15, 2017. Findings: Pleural parenchymal scarring in the lung bases appears similar to the prior study. There is no evide nce of a pneumothorax or pneumomediastinum.. No definite fractures identified involving the right ribs. Incidentally noted are extensive spondylo tic changes of the thoracic spine. IMPRESSION: 1. No definite acute-appearing right rib fracture seen Extensive pleural parenchymal scarring throughout the lungs most prominent in the bases. Report Dictated By: Carissa Levy MD at 05/02/2018 11:45 AM Report E-Signed By: Carissa Levy MD at 05/02/2018 11:48 AM WSN:[email or web address]
[2018-05-20 10:12] VITALS: BP 115/74
--- NOTE | 2018-05-20 12:05 | SCH[facility]ER ONCOLOGY NOTE ---
EVENT DATE: May 20, 2018 CHIEF COMPLAINT/REASON FOR VISIT Mr. Mathew is a very pleasant 78-year old gentleman with recurrent mesothelioma, on Keytruda. HISTORY OF PRESENT ILLNESS Nate returns. He has been on Keytruda since October 2016 with a plan to treat for two years, through September 2018. He had a short break in the fall of 2017 due to diarrhea, believed to potentially be immune-mediated and related to Keytruda. We held it and he received prednisone briefly. He had a few days of diarrhea earlier in April with two or three episodes of diarrhea a day. He received 20 mg of Prednisone over three days and a few doses of Lomotil. He is now constipated. I am concerned that this may have been a viral syndrome or a very mild case of immune-mediated colitis related to Keytruda. At this time, I would like to continue the Keytruda and watch this as he is no longer having diarrhea. His shoulder and rib pain are much improved after the fall. We did get imaging, which was negative for a fracture. There was concern that he was developing pneumonia and is now on doxycycline. Defer to his primary care, NELY Dowling, regarding duration of this and whether or not it could be used as a preventative. No other new issues today, although the patient does state that he is planning on continuing Keytruda as planned through September but he has had moments where he was reconsidering this and may want to stop and pursue palliative therapy with a focus on his lung disease. ONCOLOGY HISTORY Patient was diagnosed with a Narcisa 6 prostate cancer in 2007, treated with seed implants and external beam radiation therapy. He had two separate episodes of a slight rise in his PSA but this has stabilized. He was then diagnosed with malignant mesothelioma. He underwent five cycles of carboplatin and pemetrexed as well as talc pleurodesis. He relapsed in 2016 and began Keytruda monotherapy. PAST MEDICAL/SURGICAL HISTORY 1. COPD, currently on 10L oxygen. 2. Macrocytosis. 3. Mesothelioma. 4. History of Sunman 6 prostate cancer, 2007. 5. Renal insufficiency. 6. Hyperlipidemia. 7. Former smoker. 8. Pulmonary fibrosis. FAMILY HISTORY Remarkable for prostate cancer and lymphoma. SOCIAL HISTORY Patient is . He has three grown sons. 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 He is a former smoker. REVIEW OF SYSTEMS CONSTITUTIONAL: No fevers or chills. Positive fatigue. HEENT: No headaches or vision changes. CARDIOVASCULAR: No chest pain, dyspnea on exertion or edema. RESPIRATORY: Positive emphysema, chronic O2 use with dyspnea on exertion. GASTROINTESTINAL: No nausea or vomiting. He did have a few episodes of diarrhea and now is having no constipation. GENITOURINARY: No dysuria or hematuria. MUSCULOSKELETAL: No weakness or joint pain. PSYCHIATRIC: No anxiety or depression. NEUROLOGIC: No focal deficits. HEMATOLOGIC: No bruising or bleeding. SKIN: No concerning rashes or lesions. Remainder of 14-point review of systems otherwise negative. PHYSICAL EXAMINATION VITAL SIGNS: Blood pressure 115/73, pulse 70, respiratory rate 18, temperature 96.4 degrees Fahrenheit, oxygen saturation 91% on 8L by face mask. Weight 85.5 kg. Pain 07/24. Fatigue 10/23. GENERAL: Stable condition, resting comfortably in the chair. HEENT: Normocephalic, atraumatic. CARDIOVASCULAR: Regular rate and rhythm. LUNGS: Positive emphysema with prolonged expiratory phase. No other issues today. ABDOMEN: Soft, nontender. EXTREMITIES: No clubbing, cyanosis or edema. SKIN: No concerning rashes or lesions. PSYCHIATRIC: Normal mood and affect. The remainder of physical exam is otherwise unremarkable. IMPRESSION/REPORT/PLAN Mr. Mathew is a very pleasant 78-year-old gentleman with the followin. Recurrent mesothelioma, currently on Keytruda, cycle 26. Plan to treat for two years, which would finish in September 2018. He had a couple of episodes of diarrhea but no significant diarrhea. Not constipated. Will continue. 2. Chronic obstructive pulmonary disease/emphysema. This is his current biggest issue as his mesothelioma is under control with treatment. 3. Chronic fatigue, mostly related to his lung disease. 4. History of prostate cancer. His PSA has been around 2 and we will watch this. I answered all of his questions today. His musculoskeletal issues are much improved after a fall in late 2018. No other issues today. He would like to continue therapy at this time, although he is occasionally reconsidering it. BILLING Return patient level 3. Total time 30 minutes, counseling time 20. MTDD
[~2018-05-23] VITALS: Ht 180.3 cm; Wt 85.5 kg
[~2018-05-23 10:00] MED LIST changes: +DEXTROSE 5%(*) 100 ML BAG 100 ML IVPB PRN; +PEMBROLIZUMAB 100 MG/4 ML SDV 200 MG in NS(*) 0.9% 50 ML BAG 50 ML IV ONE
[2018-05-23 10:08] VITALS: BP 126/76
[2018-05-23] MEDS: LIDOCAINE/SOD BICARB 8.4% SYR ID PRN (10:37)
[2018-05-23] MEDS: NS(*) 0.9% 100 ML BAG 100 ML IVPB PRN (10:38)
[2018-05-23] MEDS ORDERED: PEMBROLIZUMAB 100 MG/4 ML SDV 200 MG in NS(*) 0.9% 50 ML BAG 50 ML IV ONE (11:05)
[2018-05-23 11:51] VITALS: BP 103/60
--- NOTE | 2018-05-23 19:35 | ONCOLOGY FOLLOW UP NOTE ---
EVENT DATE: May 23, 2018 CHIEF COMPLAINT Followup for mesothelioma. HISTORY OF PRESENT ILLNESS Patient is a 78-year-old male who was seen today in followup. He will receive Keytruda, which he is tolerating fairly well. He currently is on doxycycline for a possible pneumonia. He is tolerating this fairly well and will complete a 10-day course. He has had no issues with fever. He continues on oxygen 10L per minute and finds that his lung issues cause the most fatigue. He has occasional diarrhea, "but nothing like before." ONCOLOGY HISTORY Patient was diagnosed with a Narcisa 6 prostate cancer in 2007, treated with seed implants and external beam radiation therapy. He had two separate episodes of a slight rise in his PSA, but this has stabilized. He was then diagnosed with malignant mesothelioma. He underwent five cycles of carboplatin and pemetrexed as well as talc pleurodesis. He relapsed in 2017 and began Keytruda monotherapy. PAST MEDICAL/SURGICAL HISTORY 1. COPD, currently on 10L oxygen. 2. Macrocytosis. 3. Mesothelioma. 4. History of Narcisa 6 prostate cancer, 2007. 5. Renal insufficiency. 6. Hyperlipidemia. 7. Former smoker. 8. Pulmonary fibrosis. FAMILY HISTORY Remarkable for prostate cancer and lymphoma. SOCIAL HISTORY Patient is . He has three grown sons. 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 He is a former smoker. MEDICATIONS 1. Albuterol. 2. Albuterol nebulizer. 3. Aspirin 81 mg daily. 4. Atorvastatin 20 mg daily. 5. Vitamin D3 1000 International Units daily. 6. Lomotil p.r.n. 7. Linzess 29 mcg daily p.r.n. 8. Claritin D daily. 9. Sertraline 50 mg daily. 10. Tamsulosin 0.4 mg daily. 11. Doxycycline. ALLERGIES No known drug allergies. REVIEW OF SYSTEMS A 12-point review of systems is performed and is negative except as stated above. He is chronically very fatigued. PHYSICAL EXAMINATION VITAL SIGNS: Weight 85.5 kg. BP 126/76, P 96, R 18, temp 97.8, O2 sat 86% on 10L per mask. HEAD: Normocephalic, atraumatic. EYES: Sclerae anicteric. MOUTH: Slightly dry mucous membranes. No lesions. NECK: Supple. No adenopathy. LUNGS: Diminished bilaterally. CARDIOVASCULAR: Heart rate regular, 96 per minute, without murmur, S3, or S4. EXTREMITIES: No edema. NEUROLOGIC: Nonfocal. LABORATORIES CBC today reveals a WBC of 7.4, hemoglobin 14.0, hematocrit 42.3, platelets 291,000. CMP is within normal limits except for a slightly elevated BUN of 27. TSH is within normal limits. Free T3 and free T4 are pending. IMPRESSION The patient is a 78-year-old male with a history of Guild 6 prostate cancer, diagnosed in 2007, status post seed implant as well as external beam radiation. Developed mesothelioma and treated with five cycles of carboplatin and pemetrexed as well as talc pleurodesis. Relapsed in 2016 and has been on Keytruda monotherapy since that time. PLAN 1. Mesothelioma. Continue Keytruda. Dr. Jauregui is planning to continue this through September 2018. He has tolerated this well. 2. Response. CT of the chest per Dr. Kiser on 04/11/18 showed stable posttreatment changes. There was no change in the scattered pulmonary nodules. Emphysema and pulmonary fibrosis were unchanged. 3. Fatigue, chronic. CBC is within normal limits. He understands that his lung disease is the likely cause. 4. History of prostate cancer. Last PSA was 1.79. We will continue to follow this. 5. Follow up for Keytruda every two weeks. 6. Follow up with Dr. Jauregui on 07/15/18 for continued care. [facility]
[2018-06-01] MEDS ORDERED: SERT-173 PO (15:54)
[2018-06-20] MEDS ORDERED: PRED20TA6 PO (09:06)
== END 2018-07-10 ==
LOC: ONC 10:00
PROVIDERS: ATTEND Internal Medicine
DX: Z51.11 Encounter for antineoplastic chemotherapy (principal); C45.7 Mesothelioma of other sites; C77.1 Secondary and unspecified malignant neoplasm of intrathoracic lymph nodes; J44.9 Chronic obstructive pulmonary disease, unspecified; N28.9 Disorder of kidney and ureter, unspecified; E78.00 Pure hypercholesterolemia, unspecified; K58.9 Irritable bowel syndrome, unspecified; G47.30 Sleep apnea, unspecified; Z23 Encounter for immunization; J06.9 Acute upper respiratory infection, unspecified; Z92.3 Personal history of irradiation; Z99.81 Dependence on supplemental oxygen; Z87.891 Personal history of nicotine dependence; R53.83 Other fatigue; R19.7 Diarrhea, unspecified
CPT/HCPCS: 83735; 84153; 84439; 84443; 84480; 84481; 85027; 96413; G0463; J7050; J9271; 71100; 82040; 82247; 82310; 82374; 82435; 82565; 82947; 84075; 84132; 84155; 84295; 84450; 84460; 84520; 99212

== ENCOUNTER 2018-06-01 13:37 | Emergency (ER) | payer MEDICARE, BC ==
[~2018-06-01 13:37] MED LIST changes: -DEXTROSE 5%(*) 100 ML BAG 100 ML IVPB PRN; -PEMBROLIZUMAB 100 MG/4 ML SDV 200 MG in NS(*) 0.9% 50 ML BAG 50 ML IV ONE
[2018-06-01] MEDS ORDERED: NS(*) 0.9% 1000 ML BAG 1,000 ML IV ONE ×2 (14:10→16:10)
[2018-06-01 14:37] LABS: PLATELET COUNT, AUTOMATED 251 K/uL (150-450)
--- NOTE | 2018-06-01 14:57 | ER Report ---
History and Physical Time Seen By MD: 13:45 Hx. of Stated Complaint: DISORIENTED [id number] WITH POSS UTI HPI/ROS CHIEF COMPLAINT: Altered mental status, weakness HISTORY OF PRESENT ILLNESS: A 78-year-old male with history of COPD, mesothelioma, prostate cancer, presents with 2 weeks of gradual confusion, worse over the last day. He denies focal symptoms, however family was concerned that he may have UTI so checked his urine twice this morning with home. 6 and noticed leukocyte esterase. He has not had recent UTIs per family. He denies fever, vomiting, shortness breath, abdominal pain. He has ongoing diarrhea.Per family he had not had notable confusion prior to past two weeks. He has been seen by his primary doctor for this and reportedly has an MRI scheduled that he has not yet undergone. He denies further associated symptoms. He denies falls. Oncology hx specific for: Patient was diagnosed with a [place] 6 prostate cancer in 2007, treated with seed implants and external beam radiation therapy. He had two separate episodes of a slight rise in his PSA, but this has stabilized. He was then diagnosed with malignant mesothelioma. He underwent five cycles of carboplatin and pemetrexed as well as talc pleurodesis. He relapsed in 2016 and began Keytruda monotherapy. REVIEW OF SYSTEMS: Constitutional: no fever/chills Eyes: No discharge. ENT: No sore throat. Cardiovascular: No chest pain, no palpitations. Respiratory: No cough, no shortness of breath. Gastrointestinal: No abdominal pain, no vomiting. Genitourinary: ongoing urinary frequency; no dysuria Musculoskeletal: No back pain. Skin: No rashes. Neurological: No headache. Remainder of the 14 system rev: Yes Allergies: Coded Allergies: No Known Allergies (Verified Allergy, Unknown, 03/19/17) Home Meds Active Scripts Cholecalciferol (Vitamin D3) (VITAMIN D3) 1,000 Unit Tablet, 1000 UNIT PO 1-2XD for 1 Day, TAB Prov:LORRAINE SWARTZ, ONC 11/15/17 Albuterol Sulfate (ALBUTEROL SULFATE) 2.5 Mg/0.5 Ml Vial.neb, 2.5 MG IH Q6H, #30 Prov:MILADYS HUANG DO 09/22/13 Reported Medications Sertraline Hcl (ZOLOFT) 100 Mg Tablet, 1 TAB PO QDAY, TAB 06/01/18 Ubidecarenone (COQ10) 50 Mg Tab.chew, 50 MG PO, TAB.CHEW 02/28/18 Loratadine/Pseudoephedrine (CLARITIN-D 24 HOUR TABLET) 1 Each Tab.er.24h, 1 EACH PO DAILY 09/12/17 Guaifenesin (MUCINEX) 1,200 Mg Tbmp.12hr, 1200 MG PO PRN 03/23/15 Aspirin (Children's Aspirin) 81 Mg Tab.chew, 1 TAB PO DAILY 03/23/15 Atorvastatin Calcium (ATORVASTATIN CALCIUM) 20 Mg Tablet, 1 TAB PO QDAY, TAB 03/23/15 Albuterol Sul Hfa 90 Mcg 8 Gm (VENTOLIN HFA 90 MCG 8 GM) 8.5 Gm Hfa.aer.ad, 2 PUFF IH Q6H 09/22/13 Acetaminophen (TYLENOL) 325 Mg Tablet, 325-650 MG PO Q6H PRN for PAIN Take as needed for mild pain relief 03/07/13 Pyridoxine Hcl (VITAMIN B-6) 100 Mg Tablet, 100 MG PO BID 10/31/12 Tamsulosin Hcl (FLOMAX) 0.4 Mg Cap.er.24h, 0.4 MG PO QODAY 09/25/12 Discontinued Reported Medications Diphenoxylate Hcl/Atropine (LOMOTIL TABLET) 1 Each Tablet, 1 EACH PO DAILY, TAB 01/21/18 Sertraline Hcl (SERTRALINE HCL) 50 Mg Tablet, 1 TAB PO QDAY, TAB 06/18/17 Discontinued Scripts Prednisone (PREDNISONE) 20 Mg Tablet, 20 MG PO QDAY for 3 Days, #3 TAB Prov:NEIDA PENNY MD 03/20/18 Azithromycin (Z-PACK) 250 Mg Tablet, 0 PO QDAY, #6 DOSE-PACK 0 Refills Prov:NEIAD PENNY MD 03/20/18 Linaclotide (LINZESS) 290 Mcg Capsule, 290 MCG PO DAILY, #30 CAPSULE 2 Refills Prov:NEIDA PENNY MD 07/30/17 Lorazepam (LORAZEPAM) 1 Mg Tab, 1 TAB PO PRN PRN for ANXIETY, #60 TAB Prov:ANKIT RENEE MD 06/22/15 Reviewed Nurses Notes: Yes Old Medical Records Reviewed: Yes Hx Smoking: Yes (smoker- 40 years 1ppd, chewed 10 years 1 can a week) Smoking Status: Former Smoker Exposure to Second Hand Smoke?: No Hx Substance Use Disorder: No Hx Alcohol Use: No Constitutional Vital Sign - Last 24 Hours 06/01/18 06/01/18 06/01/18 06/01/18 13:58 14:06 14:07 14:12 Pulse 71 73 Resp 25 B/P (MAP) 134/84 (101) 134/84 125/94 (104) Pulse Ox 77 100 O2 Delivery Nasal Cannula 06/01/18 06/01/18 06/01/18 06/01/18 14:22 14:30 14:37 15:00 Pulse 70 67 B/P (MAP) 126/68 (87) 131/66 (87) Pulse Ox 99 95 06/01/18 06/01/18 06/01/18 06/01/18 15:07 15:22 15:30 16:50 Pulse 60 75 Resp 18 B/P (MAP) 141/92 (108) Pulse Ox 97 72 O2 Flow Rate 10.0 Physical Exam General Appearance: The patient is alert, has no immediate need for airway protection and no signs of toxicity. Eyes: Pupils equal and round no pallor or injection. ENT, Mouth: Mucous membranes are slightly dry Respiratory: There are no retractions, lungs are clear to auscultation. Cardiovascular: Regular rate and rhythm. no m/r/g Gastrointestinal: Abdomen is soft and non tender, no masses, bowel sounds normal. Neurological: alert, mildly confused, moves all ext, cn ii-xii intact Skin: Warm and dry, no rashes. Musculoskeletal: Extremities are nontender; mild edema, and have full range of motion. DIFFERENTIAL DIAGNOSIS: After history and physical exam differential diagnosis was considered for altered mental status including but not limited to hyp oglycemia, infectious process, electrolyte abnormality, head injury and intoxicants. Medical Decision Making Data Points Result Diagram: 06/01/18 1418 06/01/18 1418 Laboratory Hematology Test 06/01/18 14:18 06/01/18 14:20 06/01/18 15:02 06/01/18 15:40 Red Blood Count 4.30 M/uL (4.00-5.60) Mean Corpuscular Volume 102.5 fL (80.0-96.0) Mean Corpuscular Hemoglobin 34.3 pg (26.0-33.0) Mean Corpuscular Hemoglobin Concent 33.5 g/dL (32.0-36.0) Red Cell Distribution Width 14.5 % (11.5-14.5) Mean Platelet Volume 8.3 fL (7.2-11.1) Neutrophils (%) (Auto) 71.5 % (39.4-72.5) Lymphocytes (%) (Auto) 17.6 % (17.6-49.6) Monocytes (%) (Auto) 6.8 % (4.1-12.4) Eosinophils (%) (Auto) 3.0 % (0.4-6.7) Basophils (%) (Auto) 1.1 % (0.3-1.4) Nucleated RBC Relative Count (auto) 0.0 /100WBC Neutrophils # (Auto) 4.7 K/uL (2.0-7.4) Lymphocytes # (Auto) 1.2 K/uL (1.3-3.6) Monocytes # (Auto) 0.4 K/uL (0.3-1.0) Eosinophils # (Auto) 0.2 K/uL (0.0-0.5) Basophils # (Auto) 0.1 K/uL (0.0-0.1) Nucleated RBC Absolute Count (auto) 0.00 K/uL Peripheral Blood Smear No Y/N Sodium Level 136 mmol/L (137-145) Potassium Level 4.3 mmol/L (3.5-5.0) Chloride Level 101 mmol/L (98-107) Carbon Dioxide Level 26 mmol/L (22-30) Blood Urea Nitrogen 16 mg/dl (9-21) Creatinine 0.90 mg/dl (0.66-1.25) Glomerular Filtration Rate Calc > 60.0 Random Glucose 98 mg/dl (75-110) Lactate 2.3 mmol/L (0.7-2.1) Calcium Level 9.6 mg/dl (8.4-10.2) Magnesium Level 2.0 mg/dl (1.7-2.2) Total Bilirubin 0.7 mg/dl (0.2-1.3) Aspartate Amino Transf (AST/SGOT) 31 U/L (0-35) Alanine Aminotransferase (ALT/SGPT) 36 U/L (0-56) Alkaline Phosphatase 132 U/L (0-126) Troponin I < 0.012 ng/ml Total Protein 7.1 g/dl (6.3-8.2) Albumin 4.0 g/dl (3.5-5.0) Influenza Virus Type A (PCR) Negative (NEGATIVE) Influenza Virus Type B (PCR) Negative (NEGATIVE) Blood Gas Puncture Site Right radial Blood Gas Patient Temperature 98.6 DEGREES Arterial Blood pH 7.43 (7.35-7.45) Arterial Blood Partial Pressure CO2 33 mmHg (32-37) Arterial Blood Partial Pressure O2 69 mmHg (60-80) Arterial Blood HCO3 22 mmol/L (20-26) Arterial Blood Oxygen Saturation 94 % (92-100) Arterial Blood Base Excess -2.0 mmol/L Valentino Test Acceptable Oxygen Liters/Minute 49 Urine Color Yellow Urine Clarity Clear Urine pH 6.0 pH (4.8-9.5) Urine Specific [place] 1.012 Urine Protein Negative mg/dL (NEGATIVE) Urine Glucose (UA) Negative mg/dL (NEGATIVE) Urine Ketones Negative mg/dL (NEGATIVE) Urine Blood Negative (NEGATIVE) Urine Nitrite Negative (NEGATIVE) Urine Bilirubin Negative (NEGATIVE) Urine Urobilinogen Negative mg/dL (0.2-1.9) Urine Leukocyte Esterase Negative (NEGATIVE) Urine RBC <1 /HPF (0-2/HPF) Urine WBC <1 /HPF (0-5/HPF) Urine Squamous Epithelial Cells Few /LPF (</=FEW) Urine Bacteria Negative /HPF (NONE-FEW) Urine Mucus Few /HPF (NONE-FEW) Chemistry Test 06/01/18 14:18 06/01/18 14:20 06/01/18 15:02 06/01/18 15:40 White Blood Count 6.6 k/uL (4.5-11.0) Red Blood Count 4.30 M/uL (4.00-5.60) Hemoglobin 14.8 g/dL (14.0-18.0) Hematocrit 44.1 % (42.0-52.0) Mean Corpuscular Volume 102.5 fL (80.0-96.0) Mean Corpuscular Hemoglobin 34.3 pg (26.0-33.0) Mean Corpuscular Hemoglobin Concent 33.5 g/dL (32.0-36.0) Red Cell Distribution Width 14.5 % (11.5-14.5) Platelet Count 251 K/uL (150-450) Mean Platelet Volume 8.3 fL (7.2-11.1) Neutrophils (%) (Auto) 71.5 % (39.4-72.5) Lymphocytes (%) (Auto) 17.6 % (17.6-49.6) Monocytes (%) (Auto) 6.8 % (4.1-12.4) Eosinophils (%) (Auto) 3.0 % (0.4-6.7) Basophils (%) (Auto) 1.1 % (0.3-1.4) Nucleated RBC Relative Count (auto) 0.0 /100WBC Neutrophils # (Auto) 4.7 K/uL (2.0-7.4) Lymphocytes # (Auto) 1.2 K/uL (1.3-3.6) Monocytes # (Auto) 0.4 K/uL (0.3-1.0) Eosinophils # (Auto) 0.2 K/uL (0.0-0.5) Basophils # (Auto) 0.1 K/uL (0.0-0.1) Nucleated RBC Absolute Count (auto) 0.00 K/uL Peripheral Blood Smear No Y/N Glomerular Filtration Rate Calc > 60.0 Lactate 2.3 mmol/L (0.7-2.1) Calcium Level 9.6 mg/dl (8.4-10.2) Magnesium Level 2.0 mg/dl (1.7-2.2) Total Bilirubin 0.7 mg/dl (0.2-1.3) Aspartate Amino Transf (AST/SGOT) 31 U/L (0-35) Alanine Aminotransferase (ALT/SGPT) 36 U/L (0-56) Alkaline Phosphatase 132 U/L (0-126) Troponin I < 0.012 ng/ml Total Protein 7.1 g/dl (6.3-8.2) Albumin 4.0 g/dl (3.5-5.0) Influenza Virus Type A (PCR) Negative (NEGATIVE) Influenza Virus Type B (PCR) Negative (NEGATIVE) Blood Gas Puncture Site Right radial Blood Gas Patient Temperature 98.6 DEGREES Arterial Blood pH 7.43 (7.35-7.45) Arterial Blood Partial Pressure CO2 33 mmHg (32-37) Arterial Blood Partial Pressure O2 69 mmHg (60-80) Arterial Blood HCO3 22 mmol/L (20-26) Arterial Blood Oxygen Saturation 94 % (92-100) Arterial Blood Base Excess -2.0 mmol/L Valentino Test Acceptable Oxygen Liters/Minute 49 Urine Color Yellow Urine Clarity Clear Urine pH 6.0 pH (4.8-9.5) Urine Specific [place] 1.012 Urine Protein Negative mg/dL (NEGATIVE) Urine Glucose (UA) Negative mg/dL (NEGATIVE) Urine Ketones Negative mg/dL (NEGATIVE) Urine Blood Negative (NEGATIVE) Urine Nitrite Negative (NEGATIVE) Urine Bilirubin Negative (NEGATIVE) Urine Urobilinogen Negative mg/dL (0.2-1.9) Urine Leukocyte Esterase Negative (NEGATIVE) Urine RBC <1 /HPF (0-2/HPF) Urine WBC <1 /HPF (0-5/HPF) Urine Squamous Epithelial Cells Few /LPF (</=FEW) Urine Bacteria Negative /HPF (NONE-FEW) Urine Mucus Few /HPF (NONE-FEW) Urinalysis Test 06/01/18 15:40 Urine Color Yellow Urine Clarity Clear Urine pH 6.0 pH (4.8-9.5) Urine Specific [place] 1.012 Urine Protein Negative mg/dL (NEGATIVE) Urine Glucose (UA) Negative mg/dL (NEGATIVE) Urine Ketones Negative mg/dL (NEGATIVE) Urine Blood Negative (NEGATIVE) Urine Nitrite Negative (NEGATIVE) Urine Bilirubin Negative (NEGATIVE) Urine Urobilinogen Negative mg/dL (0.2-1.9) Urine Leukocyte Esterase Negative (NEGATIVE) Urine RBC <1 /HPF (0-2/HPF) Urine WBC <1 /HPF (0-5/HPF) Urine Squamous Epithelial Cells Few /LPF (</=FEW) Urine Bacteria Negative /HPF (NONE-FEW) Urine Mucus Few /HPF (NONE-FEW) EKG/Imaging EKG Interpretation 12 lead EKG: Rhythm: normal sinus rhythm [place]: normal QRS: normal ST segments: Flipped T waves in V1 through 4, 3 Normal sinus rhythm with No ST elevation or depression. Flipped T waves or chronic. Borderline prolonged QT. Monitor Interpretation: Normal Sinus Rhythm ED Course/Re-evaluation ED Course 78-year-old male with pulmonary fibrosis, mesothelioma, COPD presents with altered mental status and potentially hypoxia. In emergency department, his sats are maintained well on his home O2. This drops quickly when he ambulates, h owever per family, this is what he experiences at home and is known by his receiving room clerk. I evaluated for acute infection, sepsis, CVA, acs, electrolyte abnormality, or any other emergent etiology of symptoms. Patient improves quickly in the emergency department either with sufficient oxygen or IV fluids. Ultimately, I do not find clear reason for symptoms. After ED evaluation, I offered admission for further evaluation versus discharges patient is now symptom-free. Patient wishes to go home and family is comfortable with this plan, however all understand the importance of returning for any change in status and patient agrees to this. As some of his symptoms have developed over time, it is quite likely that part of his symptoms are due to progressive dementia. This is noted on CT and is presumably why his primary doctor has ordered an MRI as well. Decision to Disposition Date: Jun 01, 2018 Decision to Disposition Time: 16:58 Depart Departure Latest Vital Signs Vital Signs Date Time Temp Pulse Resp B/P (MAP) Pulse Ox O2 Delivery O2 Flow Rate FiO2 06/01/18 16:50 10.0 06/01/18 15:30 141/92 (108) 06/01/18 15:22 75 18 72 06/01/18 14:06 Nasal Cannula Impression: Primary Impression: Hypoxia Additional Impression: Altered mental state Condition: Stable Disposition: HOME OR SELF-CARE Referrals: [facility] WORKER-BC, ONC (PCP) 2 Days Patient Instructions: Altered Mental Status (ED), Hypoxia (ED) Additional Instructions: As we discussed, make sure that you're oxygen is on at all times and that you are oxygenating well. Make sure you are keeping hydrated enough that you are urinating 3-4 times during the day. Please return immediately for new change in consciousness, difficulty breathing that doesn't resolve when resting, or any concerns. Problem Qualifiers Additional Impression: Altered mental state Altered mental status type: transient alteration of awareness Qualified Codes: R40.4 - Transient alteration of awareness RISHABH KRISHNAMURTHY MD Jun 01, 2018 14:57
--- NOTE | 2018-06-01 15:04 | RADIOLOGY IMAGING REPORT ---
FACILITY: [facility] [place] PATIENT NAME: Nate Mathew : 1940 MR: [id number] V: [id number] EXAM DATE: ORDERING PHYSICIAN: RISHABH KRISHNAMURTHY TECHNOLOGIST: Location: [facility] Patient: Nate Mathew : 1940 Visit/Account:[id number] Date of Sevice: 06/01/2018 2 VIEWS CHEST INDICATION: Dyspnea. COMPARISON: 05/17/2018. FINDINGS: Cardiomediastinal silhouette and pulmonary vessels within normal limits. There is underlying chronic interstitial changes seen in both lungs slightly more so on the right low er lobe. The appearance is not significantly changed from 03/28/2017. No focal areas of consolidation . There is again some scarring seen in the right lateral midlung. There is no pneumothorax or pleural effusion. No discrete nodule. Upper abdomen is unremarkable. No acute bony abnormality. IMPRESSION: 1. No acute cardiopulmonary process. Stable underlying chronic interstitial changes. Report Dictated By: Gopal Sarmiento at 06/01/2018 2:58 PM Report E-Signed By: Gopal Sarmiento at 06/01/2018 3:01 PM WSN:[id number]
--- NOTE | 2018-06-01 15:41 | EKG ---
FACILITY: [facility] PATIENT NAME: RACHEL PEREIRA : [id number] MR: [id number] V: [id number] EXAM DATE: ORDERING PHYSICIAN: RISHABH KRISHNAMURTHY TECHNOLOGIST: ALMA Test Reason : DYSPNEA Blood Pressure : / mmHG Vent. Rate : 063 BPM Atrial Rate : 063 BPM P-R Int : 126 ms QRS Dur : 090 ms QT Int : 460 ms P-R-T Axes : 048 089 -05 degrees QTc Int : 470 ms Normal sinus rhythm ST and T wave abnormality, consider anterior ischemia Prolonged QT Abnormal ECG When compared with ECG of 15-NOV-2017 15:03, T wave inversion now evident in Inferior leads QT has lengthened Confirmed by CORETTA WEN ([id number]) on 06/01/2018 7:08:28 PM Referred By: YESSY Confirmed By:CORETTA WEN
[2018-06-01] MEDS ORDERED: SERT-173 PO (15:54)
--- NOTE | 2018-06-01 16:45 | RADIOLOGY IMAGING REPORT ---
FACILITY: [facility] [place] PATIENT NAME: Nate Mathew : 1940 MR: [id number] V: [id number] EXAM DATE: ORDERING PHYSICIAN: RISHABH KRISHNAMURTHY TECHNOLOGIST: Location: [facility] Patient: Nate Mathew : 1940 Visit/Account:[id number] Date of Sevice: 06/01/2018 CT Head without contrast Indication: Altered mental status. Comparison: 09/16/2010. Technique: Axial CT images were obtained through the brain from the skull base to the vertex without administration of IV contrast. Reformatted coronal and sagittal images were also obtained. One of the following dose optimization techniques was utilized in the performance of this exam: autom ated exposure control; adjustment of the mA and/or kV according to the patient's size; or use of an i terative reconstruction technique. Specific details can be referenced in the facility's radiology CT exam operational policy. Findings: No evidence of mass, mass effect, or midline shift. No acute intracranial hemorrhage or acute territorial infarction. No extra-axial fluid collection or hydrocephalus. Age-related cerebral atrophy. Periventricular white matter ischemic changes consistent small vessel disease. Larry/white matter differentiation appears n ormal. Mild bilateral internal carotid artery calcifications. Bony structures show no fractures or lesions. The visualized paranasal sinuses and mastoid air cells are clear. IMPRESSION: 1. Senescent changes without acute abnormality. Report Dictated By: Gopal Sarmiento at 06/01/2018 4:38 PM Report E-Signed By: Gopal Sarmiento at 06/01/2018 4:42 PM WSN:[id number]
[2018-06-01 17:00] VITALS: BP 121/117
== END 2018-06-01 17:08 | disposition home or self-care (01) ==
LOC: ER 13:51
DX: R40.4 Transient alteration of awareness (principal); R09.02 Hypoxemia
CPT/HCPCS: 36600; 70450; 71046; 81001; 82803; 83605; 83735; 84484; 85025; 87502; 93005; 96360; 96361; 99284; J7030; 82040; 82247; 82310; 82374; 82435; 82565; 82947; 84075; 84132; 84155; 84295; 84450; 84460; 84520

== ENCOUNTER → 2018-07-03 | Outpatient (CLI) | payer MEDICARE, BC ==
[~2018-07-03] MED LIST changes: +SERT-173 PO
[2018-07-03 13:32] VITALS: BP 144/93
[2018-07-03 13:38] LABS: PLATELET COUNT, AUTOMATED 170 K/uL (150-450)
== END ==
LOC: SPU 13:10
PROVIDERS: ATTEND Internal Medicine Medical Oncology
DX: C45.0 Mesothelioma of pleura (principal)
CPT/HCPCS: 36415; 82040; 82247; 82310; 82374; 82435; 82565; 82947; 84075; 84132; 84155; 84295; 84450; 84460; 84520; 85025

== ENCOUNTER → 2018-07-09 | Outpatient (CLI) | payer MEDICARE, BC | LOC: US 00:36 | PROVIDERS: ATTEND Internal Medicine | DX: I36.1 Nonrheumatic tricuspid (valve) insufficiency (principal); I34.0 Nonrheumatic mitral (valve) insufficiency | CPT/HCPCS: 93306 ==

== ENCOUNTER 2018-07-25 13:58 | Emergency (ER) | payer MEDICARE, BC ==
[~2018-07-25 13:58] MED LIST changes: -BUDE0.5A6 IH; -FLUT16SP19 NS; -FORM20VI IH; -MELA3TAB31 PO; -POLY17PO25 PO; -POLY1DRO10 OP; -SULF-198 PO; -VIT-9 PO; -VITA100T PO
[2018-07-25 14:08] VITALS: BP 95/73
--- NOTE | 2018-07-25 14:09 | ER Report ---
History and Physical Time Seen By MD: 14:09 HPI/ROS CHIEF COMPLAINT: Fall with laceration to right hand HISTORY OF PRESENT ILLNESS: 78-year-old male patient presents to emergency room with complaint of fall with laceration of the right hand. Patient's states that he was getting up to go the bathroom. When he got up he lost his balance and fell forward over his walker. She states that he got his hand stuck in the breaking mechanism on the walker. Due to the flap that he has on his hand they're concerned and want to bring him in for evaluation. Patient denies hitting his head, denies any loss consciousness. states he did have a headache yesterday and they talked with her primary care provider who recommended they come to the emergency room and wanted us to know about the headache. Patient denies any nausea, vomiting or diarrhea. Patient wears 10 L of oxygen 24 hours a day. REVIEW OF SYSTEMS: Respiratory: No cough, no dyspnea. Cardiovascular: No chest pain, no palpitations. Gastrointestinal: No vomiting, no abdominal pain. Musculoskeletal: No back pain. Allergies: Coded Allergies: No Known Allergies (Verified Allergy, Unknown, 03/19/17) Home Meds Active Scripts Cholecalciferol (Vitamin D3) (VITAMIN D3) 1,000 Unit Tablet, 1000 UNIT PO 1-2XD for 1 Day, TAB Prov:LORRAINE SWARTZ, ONC 11/15/17 Albuterol Sulfate (ALBUTEROL SULFATE) 2.5 Mg/0.5 Ml Vial.neb, 2.5 MG IH Q6H, #30 Prov:MILADYS HUANG DO 09/22/13 Reported Medications Prednisone (PREDNISONE) 20 Mg Tablet, 20 MG PO BID, TAB Pt will taper prednisone starting with 4omg daily x7 days, 30mg daily x7 days, 20mg daily x7 days, 10mg daily x 7 days, 5mg daily x 7 days, then off. Pt will start this on 06/20/18. 06/20/18 Sertraline Hcl (ZOLOFT) 100 Mg Tablet, 1 TAB PO QDAY, TAB 06/01/18 Ubidecarenone (COQ10) 50 Mg Tab.chew, 50 MG PO, TAB.CHEW 02/28/18 Loratadine/Pseudoephedrine (CLARITIN-D 24 HOUR TABLET) 1 Each Tab.er.24h, 1 EACH PO DAILY 09/12/17 Guaifenesin (MUCINEX) 1,200 Mg Tbmp.12hr, 1200 MG PO PRN 03/23/15 Aspirin (Children's Aspirin) 81 Mg Tab.chew, 1 TAB PO DAILY 03/23/15 Atorvastatin Calcium (ATORVASTATIN CALCIUM) 20 Mg Tablet, 1 TAB PO QDAY, TAB 03/23/15 Albuterol Sul Hfa 90 Mcg 8 Gm (VENTOLIN HFA 90 MCG 8 GM) 8.5 Gm Hfa.aer.ad, 2 PUFF IH Q6H 09/22/13 Acetaminophen (TYLENOL) 325 Mg Tablet, 325-650 MG PO Q6H PRN for PAIN Take as needed for mild pain relief 03/07/13 Pyridoxine Hcl (VITAMIN B-6) 100 Mg Tablet, 100 MG PO BID 10/31/12 Tamsulosin Hcl (FLOMAX) 0.4 Mg Cap.er.24h, 0.4 MG PO QODAY 09/25/12 Past Medical/Surgical History Patient has a past medical history of A. fib, hypertension, mesothelioma, emphysema, pneumonia, COPD, prostate problems, arthritis, back pain, depression, anxiety, prostate cancer, lung cancer. Patient has a surgical history of bilateral cataract surgery, tooth extraction, prostate seeding. Patient has a family medical history of CAD, stroke, diabetes. Reviewed Nurses Notes: Yes Hx Smoking: Yes (smoker- 40 years 1ppd, chewed 10 years 1 can a week) Smoking Status: Former Smoker Exposure to Second Hand Smoke?: No Hx Substance Use Disorder: No Hx Alcohol Use: No Constitutional Vital Sign - Last 24 Hours 07/25/18 14:08 Temp 97.8 Pulse 82 Resp 17 B/P (MAP) 95/73 Pulse Ox 94 O2 Delivery Nasal Cannula Physical Exam General Appearance: The patient is alert, has no immediate need for airway protection and no current signs of toxicity. Respiratory: Chest is non tender, lungs are clear to auscultation. Cardiac: regular rate and rhythm Gastrointestinal: Abdomen is soft and non tender, no masses, bowel sounds normal. Musculoskeletal: Neck: Neck is supple and non tender. Extremities have full range of motion and are non tender. Skin: No rashes or lesions. Patient has skin tear to the right hand between th umb and index finger. DIFFERENTIAL DIAGNOSIS: After history and physical exam differential diagnosis was considered for skin tear, intracranial hemorrhage, skull fracture. Medical Decision Making EKG/Imaging Imaging Study: CT scan of the brain without intravenous contrast. Indication: Headache following fall Comparison study:None Technique: Multiple axial images were obtained through the brain without the use of intravenous contrast. One of the following dose optimization techniques was utilized in the performance of this exam: Automated exposure control; adjustment of the mA a nd/or kV according to the patient's size; or use of an iterative reconstruction technique. Specific details can be referenced in the facility's radiology CT exam operational policy. The examination demonstrates no evidence of acute intracranial hemorrhage. There is no evidence of extra-axial collection or hydrocephalus. There is no abnormal density identified within the brain parenchyma. There is no evidence of disruption of the peripheral maguire-white junction. The bony structures are unremarkable. IMPRESSION:Unremarkable CT scan of the brain without contrast. Report Dictated By: Stew Lion at 07/25/2018 2:52 PM Report E-Signed By: Stew Lion at 07/25/2018 2:57 PM ED Course/Re-evaluation ED Course Patient was admitted to an exam room, history and physical were obtained. Differential diagnoses were considered. On examination lungs are clear, heart is regular, patient had no neck tenderness, no headache, no swelling or bruising noted. Patient did have a skin tear to the right hand between the thumb and index finger. That was cleaned and dressed with a Tegaderm. I did evaluate the wounds from a week ago from his fall. Those were redressed with bacitracin, Telfa pad, Kerlix and Coban. I discussed the findings with the patient and his family. We will go ahead and discharge him home this time. He is to follow-up with his primary care provider in a week. He is return to emergency room if condition worsens. I did request that they monitor for signs of infection to the right hand. They verbalized understanding of plan. Decision to Disposition Date: Jul 25, 2018 Decision to Disposition Time: 15:12 Depart Departure Latest Vital Signs Vital Signs Date Time Temp Pulse Resp B/P (MAP) Pulse Ox O2 Delivery O2 Flow Rate FiO2 07/25/18 14:08 97.8 82 17 95/73 94 Nasal Cannula Impression: Primary Impression: Fall Additional Impression: Skin tear Condition: Improved Disposition: HOME OR SELF-CARE Referrals: CESAR,FOREIGN J CHILD CARE SUPERVISOR-BC, ONC (PCP) Patient Instructions: Skin Tear (ED) Additional Instructions: Leave dressing on. Limit activity by pain. Get plenty of rest. Be careful when getting up. Follow up with your primary care provider in the next week. Monitor for signs of infection; redness, swelling, heat, discharge, increasing pain or red streaking. Problem Qualifiers Primary Impression: Fall Encounter type: initial encounter Qualified Codes: W19.XXXA - Unspecified fall, initial encounter YEN PERALES Jul 25, 2018 14:09
--- NOTE | 2018-07-25 15:01 | RADIOLOGY IMAGING REPORT ---
FACILITY: [facility] [place] PATIENT NAME: Nate Mathew : 1940 MR: [id number] V: [id number] EXAM DATE: ORDERING PHYSICIAN: YEN PERALES TECHNOLOGIST: Location: [facility] [place] Patient: Nate Mathew : 1940 Visit/Account:[id number] Date of Sevice: 07/25/2018 Study: CT scan of the brain without intravenous contrast. Indication: Headache following fall Comparison study:None Technique: Multiple axial images were obtained through the brain without the use of intravenous contr ast. One of the following dose optimization techniques was utilized in the performance of this exam: Autom ated exposure control; adjustment of the mA and/or kV according to the patient's size; or use of an i terative reconstruction technique. Specific details can be referenced in the facility's radiology C T exam operational policy. The examination demonstrates no evidence of acute intracranial hemorrhage. There is no evidence of ex tra-axial collection or hydrocephalus. There is no abnormal density identified within the brain parenchyma. There is no evidence of disruption of the peripheral maguire-white junction. The bony structures are unremarkable. IMPRESSION:Unremarkable CT scan of the brain without contrast. Report Dictated By: Stew Lion at 07/25/2018 2:52 PM Report E-Signed By: Stew Lion at 07/25/2018 2:57 PM WSN:[id number]
[2018-07-25] MEDS ORDERED: DIPHTH/TETANUS/ACEL. PERTUSSIS IM ONLY ONE (15:10)
== END 2018-07-25 15:28 | disposition home or self-care (01) ==
LOC: ER 14:09
DX: S61.411A Laceration without foreign body of right hand, initial encounter (principal); I10 Essential (primary) hypertension; I48.2 Chronic atrial fibrillation; Z79.82 Long term (current) use of aspirin; R51 Headache
CPT/HCPCS: 70450; 90471; 90715; 99284

== ENCOUNTER → 2018-07-25 | Outpatient (CLI) | payer MEDICARE, BC ==
[~2018-07-25] MED LIST changes: +BUDE0.5A6 IH; +FLUT16SP19 NS; +FORM20VI IH; +MELA3TAB31 PO; +POLY17PO25 PO; +POLY1DRO10 OP; +SULF-198 PO; +VIT-9 PO; +VITA100T PO
== END ==
LOC: LAB 15:34
PROVIDERS: ATTEND Internal Medicine
DX: R09.02 Hypoxemia (principal); I27.20 Pulmonary hypertension, unspecified
CPT/HCPCS: 36415; 82310; 82374; 82435; 82565; 82947; 84132; 84295; 84520

== ENCOUNTER 2018-07-29 09:15 | Outpatient (RCR) | payer MEDICARE, BC ==
[2018-07-29 09:31] VITALS: BP 102/58
[2018-07-29] MEDS ORDERED: VITA100T PO (09:37)
[2018-07-29] MEDS ORDERED: FLUT16SP19 NS (09:37)
[2018-07-29] MEDS ORDERED: BUDE0.5A6 IH (16:53)
[2018-07-29] MEDS ORDERED: SULF-198 PO (16:53)
[2018-07-29] MEDS ORDERED: POLY17PO25 PO (16:53)
[2018-07-29] MEDS ORDERED: PANT40TA65 PO (16:53)
[2018-07-29] MEDS ORDERED: FURO-47 PO (16:53)
[2018-07-29] MEDS ORDERED: POLY1DRO10 OP (16:53)
[2018-07-29] MEDS ORDERED: MELA3TAB31 PO (16:53)
[2018-07-29] MEDS ORDERED: VIT-9 PO (16:53)
[2018-07-29] MEDS ORDERED: FORM20VI IH (16:53)
[2018-07-29] MEDS ORDERED: TIO18R INH (16:53)
[2018-07-29] MEDS ORDERED: LOR1 PO (16:53)
--- NOTE | 2018-07-30 07:44 | [facility]ER ONCOLOGY NOTE ---
EVENT DATE: July 29, 2018 CHIEF COMPLAINT/REASON FOR VISIT Mr. Mathew is a very pleasant 78-year old gentleman with significant pulmonary hypertension, COPD//emphysema and history of mesothelioma most recently on pembrolizumab, which is currently being held due to concern for significant side effects including encephalopathy and diarrhea. HISTORY OF PRESENT ILLNESS Nate returns. He was on Keytruda from October 2016 through May 2018. He had a short break in the fall of 2017 due to diarrhea, believed to be immune mediated. He responded well to prednisone though. He has had more issues in 2019 and this led to discontinuation and higher doses of steroids. Encephalopathy is most likely related to Keytruda but there could be a component of the high-dose steroids as well. We are slowly tapering these. The family thinks his encephalopathy is slowly improving as we get further away from the Keytruda. I agree with Dr. Kiser that we are very likely done with this medication for him going forward. He had a hospitalization in June in [place] under Dr. Kiser's care. This was quite debilitating for Mr. Mathew and he is very slowly recovering at home. His son and grandson are helping care for him and they are concerned by his increased weakness even after discharge. He has had a few minor falls. No trauma to the head. An MRI was done earlier this year to evaluate for metastatic disease and thankfully this was negative but, unfortunately, this means that the encephalopathy is the main culprit. Dr. Villegas and Pulmonary are evaluating his significant hypoxemia and they have found evidence of a right to left shunt. He is currently requiring 10L of oxygen for the COPD and emphysema. I had a difficult and honest conversation with Nate that I am hopeful that he can work with PT and recover but I am concerned that he may not recover from the pulmonary major issues. I do not believe that he has progressive mesothelioma at this time based on simple x-rays and prior CT scans. However, I cannot be certain of that and we may need to re-evaluate in the future. I am concerned that he may require increasing levels of care and may need to consider palliative care Hospice in the future. ONCOLOGY HISTORY Patient was diagnosed with a Narcisa 6 prostate cancer in 2007, treated with seed implants and external beam radiation therapy. He had two separate episodes of a slight rise in his PSA but this has stabilized. He was then diagnosed with malignant mesothelioma. He underwent five cycles of carboplatin and pemetrexed as well as talc pleurodesis. He relapsed in 2017 and began Keytruda monotherapy. PAST MEDICAL/SURGICAL HISTORY 1. COPD, currently on 10L oxygen. 2. Macrocytosis. 3. Mesothelioma. 4. History of [place] 6 prostate cancer, 2008. 5. Renal insufficiency. 6. Hyperlipidemia. 7. Former smoker. 8. Pulmonary fibrosis. FAMILY HISTORY Remarkable for prostate cancer and lymphoma. SOCIAL HISTORY Patient is . He has three grown sons. 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 He is a former smoker. REVIEW OF SYSTEMS CONSTITUTIONAL: No fevers or chills. Positive fatigue. HEENT: No headaches or vision changes. CARDIOVASCULAR: No chest pain, dyspnea on exertion or edema. RESPIRATORY: Positive emphysema, chronic O2 use with dyspnea on exertion. GASTROINTESTINAL: No nausea, vomiting or diarrhea. GENITOURINARY: No dysuria or hematuria. MUSCULOSKELETAL: No weakness or joint pain. PSYCHIATRIC: No anxiety or depression. NEUROLOGIC: No focal deficits. HEMATOLOGIC: No bruising or bleeding. SKIN: No concerning rashes or lesions. Remainder of 14-point review of systems otherwise negative. PHYSICAL EXAMINATION VITAL SIGNS: Blood pressure 102/58, pulse 70, respiratory rate 16, temperature 96.6 degrees Fahrenheit, oxygen saturation 92% on 8L by face mask. Weight deferred. Pain 0/10. Fatigue 5/10. GENERAL: Stable condition in the chair, nontoxic. He is in respiratory distress but not requiring increased levels of oxygen beyond his current level. HEENT: Normocephalic, atraumatic. CARDIOVASCULAR: Regular rate and rhythm. LUNGS: Positive emphysema with prolonged expiratory phase but no dullness or unusual sounds at the bases. ABDOMEN: Soft, nontender. NEUROLOGIC: Nate feels that he is getting better but his family members do not agree that this is the case. They fell that he is getting weaker. They think his memory is still affected but that may be better than it was previously last month. The remainder of full physical exam otherwise deferred. IMPRESSION/REPORT/PLAN Mr. Mathew is a very pleasant 78-year-old with the followin. Recurrent mesothelioma. He received 26 cycles of Keytruda, the last dose was May 23, 2018. We had planned to treat for two years but I believe, as does Dr. Kiser, that he had significant side effects and we needed to stop this. Very slow taper of the steroids and I did not make any changes today. He does have followup plans with Dr. Kiser. I did send a message through the [employer] system to Dr. Villegas and Dr. Kiser updating them regarding the increased weakness and discussion with social work regarding potentially increased level of care required. 2. Chronic obstructive pulmonary disease/emphysema. I believe this is currently his biggest issue. We also know that he has severe pulmonary hypertension with a right to left shunt. His hypoxemia is a major issue. 3. Chronic fatigue, related to above. 4. History of prostate cancer. I answered all of his many questions today as well as questions of the family members. I have obtained a social work consult to evaluate for possible need of increased level of care in the future. BILLING Return visit level 5. High risk, high complexity. Total time 45 minutes, counseling time 35. MTDD
--- NOTE | 2018-08-15 16:13 | NUR ---
ZOHRA visited with ZOHRA at [facility] in [place] regarding potential discharge needs for patient. At this time pt is potentially going in for surgery, so no plans for discharge at this time. ZOHRA was advised to call back to check in tomorrow 08/16/18.
== END 2018-08-27 14:49 | disposition home or self-care (01) ==
LOC: ONC 09:15
PROVIDERS: ATTEND Internal Medicine
DX: C45.7 Mesothelioma of other sites (principal); Z85.46 Personal history of malignant neoplasm of prostate; J44.9 Chronic obstructive pulmonary disease, unspecified; J43.9 Emphysema, unspecified; R53.82 Chronic fatigue, unspecified; Z87.891 Personal history of nicotine dependence
CPT/HCPCS: 99212

== ENCOUNTER 2018-08-14 17:27 | Emergency (ER) | payer MEDICARE, BC ==
--- NOTE | 2018-08-14 17:42 | ER Report ---
History and Physical Time Seen By MD: 17:35 HPI/ROS CHIEF COMPLAINT: Fall to left hip HISTORY OF PRESENT ILLNESS: 78 year old male presents to ED via ambulance. Patient fell at home on his left side approximately 1.5 hours ago. Grandson and report that he fell on his left hip, did not hit his head or his shoulder. states that he was only holding on to one side of his walker when she watched him fall. Patient denies dizziness, syncope. Patient reports he is unsure how he fell. Patient currently denies pain. Patient has small abrasions to left hand at the base of the thumb and elbow. REVIEW OF SYSTEMS: Constitutional: Denies fevers, chills. HEENT: Denies vision changes, headache, dizziness. Respiratory: No cough. Has dyspnea due to mesothelioma. Cardiovascular: No chest pain, no palpitations. Gastrointestinal: No vomiting, no abdominal pain. Musculoskeletal: No back pain. Denies hip pain. Allergies: Coded Allergies: No Known Allergies (Verified Allergy, Unknown, 08/14/18) Home Meds Active Scripts Cholecalciferol (Vitamin D3) (VITAMIN D3) 1,000 Unit Tablet, 1000 UNIT PO 1-2XD for 1 Day, TAB Prov:LORRAINE SWARTZ-Corbin, ONC 11/15/17 Albuterol Sulfate (ALBUTEROL SULFATE) 2.5 Mg/0.5 Ml Vial.neb, 2.5 MG IH Q6H, #30 Prov:MILADYS HUANG DO 09/22/13 Reported Medications Tiotropium [place] (SPIRIVA) 18 Mcg/Cap Inh, 2.5 MCG INH DAILY, INH 07/29/18 Sulfamethoxazole/Trimet 800-160 Mg Tab (BACTRIM DS TABLET) 1 Each Tablet, 1 TAB PO TID, TAB 07/29/18 Polyvinyl Alcohol/Povidone/Pf (REFRESH CLASSIC EYE DROPS) 1 Each Droperette, 1 EACH OP DAILY 07/29/18 Vit A/Vit C/Vit E/Zinc/Copper (PRESERVISION AREDS TABLET) 1 Each Tablet, 1 EACH PO BID 07/29/18 Pantoprazole Sodium (PANTOPRAZOLE SODIUM) 40 Mg Tablet.dr, 40 MG PO QDAY, TAB.SR 07/29/18 Polyethylene Glycol 3350 (MIRALAX) 17 Gm Powd.pack, 17 GM PO PRN, PKT 4/15/19 Melatonin (MELATONIN) 3 Mg Tablet, 3 MG PO BID 07/29/18 Lorazepam (LORAZEPAM) 1 Mg Tab, 1 MG PO DAILY, TAB 07/29/18 Furosemide (FUROSEMIDE) 40 Mg Tablet, 0.5 TAB PO DAILY, TAB 07/29/18 Formoterol Fumarate (PERFOROMIST) 20 Mcg/2 Ml Vial.neb, 20 MCG IH BID 07/29/18 Budesonide (BUDESONIDE) 0.5 Mg/2 Ml Ampul.neb, 0.5 MG IH BID, ML 07/29/18 Vitamin E Acid Succinate (VITAMIN E) 100 Unit Tablet, 100 UNIT PO DAILY 07/29/18 Fluticasone Prop 50 Mcg Ns (FLONASE 50 MCG NS) 16 Gm [place].susp, 2 SPRAYS NS QDAY, BOT 07/29/18 Prednisone (PREDNISONE) 20 Mg Tablet, 20 MG PO BID, TAB Pt will taper prednisone starting with 4omg daily x7 days, 30mg daily x7 days, 20mg daily x7 days, 10mg daily x 7 days, 5mg daily x 7 days, then off. Pt will start this on 06/20/18. 06/20/18 Sertraline Hcl (ZOLOFT) 100 Mg Tablet, 1 TAB PO QDAY, TAB 06/01/18 Ubidecarenone (COQ10) 50 Mg Tab.chew, 50 MG PO, TAB.CHEW 02/28/18 Loratadine/Pseudoephedrine (CLARITIN-D 24 HOUR TABLET) 1 Each Tab.er.24h, 1 EACH PO DAILY 09/12/17 Guaifenesin (MUCINEX) 1,200 Mg Tbmp.12hr, 1200 MG PO PRN 03/23/15 Aspirin (Children's Aspirin) 81 Mg Tab.chew, 1 TAB PO DAILY 03/23/15 Atorvastatin Calcium (ATORVASTATIN CALCIUM) 20 Mg Tablet, 1 TAB PO QDAY, TAB 03/23/15 Albuterol Sul Hfa 90 Mcg 8 Gm (VENTOLIN HFA 90 MCG 8 GM) 8.5 Gm Hfa.aer.ad, 2 PUFF IH Q6H 09/22/13 Acetaminophen (TYLENOL) 325 Mg Tablet, 325-650 MG PO Q6H PRN for PAIN Take as needed for mild pain relief 03/07/13 Pyridoxine Hcl (VITAMIN B-6) 100 Mg Tablet, 100 MG PO BID 10/31/12 Tamsulosin Hcl (FLOMAX) 0.4 Mg Cap.er.24h, 0.4 MG PO QODAY 09/25/12 Past Medical/Surgical History Patient has a past medical history of A. fib, hypertension, mesothelioma, emphysema, pneumonia, COPD, prostate problems, arthritis, back pain, depression, anxiety, prostate cancer, lung cancer. Patient has a surgical history of bilateral cataract surgery, tooth extraction, prostate seeding. Patient has a family medical history of CAD, stroke, diabetes. Hx Smoking: Yes (smoker- 40 years 1ppd, chewed 10 years 1 can a week) Smoking Status: Former Smoker Exposure to Second Hand Smoke?: No Hx Substance Use Disorder: No Hx Alcohol Use: No Constitutional Vital Sign - Last 24 Hours 08/14/18 08/14/18 08/14/18 08/14/18 17:30 17:30 17:34 17:56 Temp 97.3 Pulse 87 ??? Resp 20 B/P (MAP) 115/77 115/77 (90) Pulse Ox 94 O2 Delivery Non-Rebreather O2 Flow Rate 10.0 08/14/18 08/14/18 08/14/18 08/14/18 18:00 18:08 18:15 18:30 Pulse 83 79 Resp 11 8 B/P (MAP) 98/86 (90) 103/80 (88) 114/91 (99) 123/70 (87) Pulse Ox 96 93 08/14/18 08/14/18 08/14/18 08/14/18 18:35 18:45 18:50 19:00 Pulse 82 74 Resp 20 22 B/P (MAP) 124/97 (106) 125/96 (106) Pulse Ox 98 98 08/14/18 08/14/18 08/14/18 19:05 19:15 19:20 Pulse 76 83 Resp 23 31 B/P (MAP) 135/78 (97) Pulse Ox 93 94 Physical Exam General Appearance: The patient is alert, has no immediate need for airway protection and no current signs of toxicity. Eyes: Pupils equal and round no injection. Respiratory: Chest is non tender, lungs are clear to auscultation. Cardiac: regular rate and rhythm Gastrointestinal: Abdomen is soft and non tender, no masses, bowel sounds normal. Musculoskeletal: Neck: Neck is supple and non tender. Extremities have full range of motion and are non tender. Reports slight tenderness to palpation at his left hip. Left leg appears shorter than right leg. Left leg is externally rotated. Skin: No rashes or lesions. Patient does have a small abrasion to his left hand at the base of his thumb and left elbow. DIFFERENTIAL DIAGNOSIS: After history and physical exam differential diagnosis was considered for left hip fracture, left hip dislocation, left hip contusion, ID, pneumonia, UTI. Medical Decision Making Data Points Result Diagram: 08/14/18 1745 08/14/18 1745 Laboratory Hematology Test 08/14/18 17:45 08/14/18 19:48 Red Blood Count 3.92 M/uL (4.00-5.60) Mean Corpuscular Volume 100.9 fL (80.0-96.0) Mean Corpuscular Hemoglobin 34.3 pg (26.0-33.0) Mean Corpuscular Hemoglobin Concent 34.0 g/dL (32.0-36.0) Red Cell Distribution Width 16.0 % (11.5-14.5) Mean Platelet Volume 7.7 fL (7.2-11.1) Neutrophils (%) (Auto) 91.3 % (39.4-72.5) Lymphocytes (%) (Auto) 5.3 % (17.6-49.6) Monocytes (%) (Auto) 2.8 % (4.1-12.4) Eosinophils (%) (Auto) 0.1 % (0.4-6.7) Basophils (%) (Auto) 0.5 % (0.3-1.4) Nucleated RBC Relative Count (auto) 0.0 /100WBC Neutrophils # (Auto) 9.7 K/uL (2.0-7.4) Lymphocytes # (Auto) 0.6 K/uL (1.3-3.6) Monocytes # (Auto) 0.3 K/uL (0.3-1.0) Eosinophils # (Auto) 0.0 K/uL (0.0-0.5) Basophils # (Auto) 0.1 K/uL (0.0-0.1) Nucleated RBC Absolute Count (auto) 0.00 K/uL Prothrombin Time 12.5 seconds (12.0-14.4) Prothromb Time International Ratio 0.94 Activated Partial Thromboplast Time 25 seconds (23-35) Sodium Level 135 mmol/L (137-145) Potassium Level 4.1 mmol/L (3.5-5.0) Chloride Level 98 mmol/L (98-107) Carbon Dioxide Level 30 mmol/L (22-30) Blood Urea Nitrogen 31 mg/dl (9-21) Creatinine 1.30 mg/dl (0.66-1.25) Glomerular Filtration Rate Calc 53.5 Random Glucose 152 mg/dl (75-110) Calcium Level 8.7 mg/dl (8.4-10.2) Total Bilirubin 0.5 mg/dl (0.2-1.3) Aspartate Amino Transf (AST/SGOT) 48 U/L (0-35) Alanine Aminotransferase (ALT/SGPT) 56 U/L (0-56) Alkaline Phosphatase 150 U/L (0-126) Troponin I < 0.012 ng/ml Total Protein 6.7 g/dl (6.3-8.2) Albumin 3.7 g/dl (3.5-5.0) Urine Color Yellow Urine Clarity Clear Urine pH 5.0 pH (4.8-9.5) Urine Specific [place] 1.018 Urine Protein Negative mg/dL (NEGATIVE) Urine Glucose (UA) Negative mg/dL (NEGATIVE) Urine Ketones Negative mg/dL (NEGATIVE) Urine Blood Negative (NEGATIVE) Urine Nitrite Negative (NEGATIVE) Urine Bilirubin Negative (NEGATIVE) Urine Urobilinogen 2.0 mg/dL (0.2-1.9) Urine Leukocyte Esterase Negative (NEGATIVE) Urine RBC 1 /HPF (0-2/HPF) Urine WBC <1 /HPF (0-5/HPF) Urine Squamous Epithelial Cells None /LPF (</=FEW) Urine Bacteria Negative /HPF (NONE-FEW) Urine Hyaline Casts Few /LPF (NONE-FEW) Urine Mucus Few /HPF (NONE-FEW) Chemistry Test 08/14/18 17:45 08/14/18 19:48 White Blood Count 10.6 k/uL (4.5-11.0) Red Blood Count 3.92 M/uL (4.00-5.60) Hemoglobin 13.4 g/dL (14.0-18.0) Hematocrit 39.6 % (42.0-52.0) Mean Corpuscular Volume 100.9 fL (80.0-96.0) Mean Corpuscular Hemoglobin 34.3 pg (26.0-33.0) Mean Corpuscular Hemoglobin Concent 34.0 g/dL (32.0-36.0) Red Cell Distribution Width 16.0 % (11.5-14.5) Platelet Count 209 K/uL (150-450) Mean Platelet Volume 7.7 fL (7.2-11.1) Neutrophils (%) (Auto) 91.3 % (39.4-72.5) Lymphocytes (%) (Auto) 5.3 % (17.6-49.6) Monocytes (%) (Auto) 2.8 % (4.1-12.4) Eosinophils (%) (Auto) 0.1 % (0.4-6.7) Basophils (%) (Auto) 0.5 % (0.3-1.4) Nucleated RBC Relative Count (auto) 0.0 /100WBC Neutrophils # (Auto) 9.7 K/uL (2.0-7.4) Lymphocytes # (Auto) 0.6 K/uL (1.3-3.6) Monocytes # (Auto) 0.3 K/uL (0.3-1.0) Eosinophils # (Auto) 0.0 K/uL (0.0-0.5) Basophils # (Auto) 0.1 K/uL (0.0-0.1) Nucleated RBC Absolute Count (auto) 0.00 K/uL Prothrombin Time 12.5 seconds (12.0-14.4) Prothromb Time International Ratio 0.94 Activated Partial Thromboplast Time 25 seconds (23-35) Glomerular Filtration Rate Calc 53.5 Calcium Level 8.7 mg/dl (8.4-10.2) Total Bilirubin 0.5 mg/dl (0.2-1.3) Aspartate Amino Transf (AST/SGOT) 48 U/L (0-35) Alanine Aminotransferase (ALT/SGPT) 56 U/L (0-56) Alkaline Phosphatase 150 U/L (0-126) Troponin I < 0.012 ng/ml Total Protein 6.7 g/dl (6.3-8.2) Albumin 3.7 g/dl (3.5-5.0) Urine Color Yellow Urine Clarity Clear Urine pH 5.0 pH (4.8-9.5) Urine Specific [place] 1.018 Urine Protein Negative mg/dL (NEGATIVE) Urine Glucose (UA) Negative mg/dL (NEGATIVE) Urine Ketones Negative mg/dL (NEGATIVE) Urine Blood Negative (NEGATIVE) Urine Nitrite Negative (NEGATIVE) Urine Bilirubin Negative (NEGATIVE) Urine Urobilinogen 2.0 mg/dL (0.2-1.9) Urine Leukocyte Esterase Negative (NEGATIVE) Urine RBC 1 /HPF (0-2/HPF) Urine WBC <1 /HPF (0-5/HPF) Urine Squamous Epithelial Cells None /LPF (</=FEW) Urine Bacteria Negative /HPF (NONE-FEW) Urine Hyaline Casts Few /LPF (NONE-FEW) Urine Mucus Few /HPF (NONE-FEW) Coagulation Test 08/14/18 17:45 Prothrombin Time 12.5 seconds Prothromb Time International Ratio 0.94 Activated Partial Thromboplast Time 25 seconds Urinalysis Test 08/14/18 19:48 Urine Color Yellow Urine Clarity Clear Urine pH 5.0 pH (4.8-9.5) Urine Specific [place] 1.018 Urine Protein Negative mg/dL (NEGATIVE) Urine Glucose (UA) Negative mg/dL (NEGATIVE) Urine Ketones Negative mg/dL (NEGATIVE) Urine Blood Negative (NEGATIVE) Urine Nitrite Negative (NEGATIVE) Urine Bilirubin Negative (NEGATIVE) Urine Urobilinogen 2.0 mg/dL (0.2-1.9) Urine Leukocyte Esterase Negative (NEGATIVE) Urine RBC 1 /HPF (0-2/HPF) Urine WBC <1 /HPF (0-5/HPF) Urine Squamous Epithelial Cells None /LPF (</=FEW) Urine Bacteria Negative /HPF (NONE-FEW) Urine Hyaline Casts Few /LPF (NONE-FEW) Urine Mucus Few /HPF (NONE-FEW) EKG/Imaging Imaging Hip and chest x-ray: Findings: Heart size within normal limits. There is pulmonary hyperinflation with relative lucency in the apices and rede monstration of linear coarsening of the interstitium within the bases indicative of interstitial scarring. Stable subtle blunting of the right costophrenic sulcus is noted. 2 views left hip are submitted. Severe degenerative changes seen left hip with narrowing, increased sclerosis and spurring. Bony proliferative changes are seen at the head neck junction. Subtle lucencies traverse the intertrochanteric left femur suspicious for nondisplaced fracture. Prostatic beads are noted. Moderate degenerative change right hip. IMPRESSION: 1. Pulmonary parenchymal changes from emphysema with bibasilar scarring. No evidence of acute finding 2. Findings indicative of nondisplaced left intertrochanteric fracture. Chest x-ray: ED Course/Re-evaluation ED Course Upon arrival to the ED via ambulance patient was admitted to an exam room, history and physical were obtained, and differentials considered. Patient fell at home on his left side approximately 1.5 hours ago. Grandson and report that he fell on his left hip, did not hit his head or his shoulder. states that he was only holding on to one side of his walker when she watched him fall. Patient denies dizziness, syncope. Patient reports he is unsure how he fell. Patient currently denies pain. Patient has small abrasions to left hand at the base of the thumb and elbow. Patient has slight tenderness to left hip with palpation. Left leg appears shorter than right leg. Left leg is externally rotated. CBC, CMP, UA, chest x-ray, hip x-ray, EKG, troponin, and coag studies ordered. Hip x-ray with nondisplaced left intertrochanteric fracture. UA negative, troponin negative, coag studies normal, CBC with anemia. Alk phos 150, BUN 31, creatinine 1.3. Dr. Muniz, orthopedic and Dr. Hutchinson, anesthesiology consulted for surgery. Patient is on 10ml NC at baseline for his mesothelioma. Dr. Muniz and Dr. Hutchinson state that this hospital is not equipped to perform surgery on him due to not having pulmonology present in the hosptial. Dr. Connolly, trauma surgeon from [facility] consulted. Dr. Connolly agreed to accept the patient for transfer. Discussed need to transfer patient to [facility] with him and his family. They are in agreement with transfer to [facility]. Decision to Disposition Date: August 14, 2018 Decision to Disposition Time: 19:32 Depart Departure Latest Vital Signs Vital Signs Date Time Temp Pulse Resp B/P (MAP) Pulse Ox O2 Delivery O2 Flow Rate FiO2 08/14/18 19:20 83 31 94 08/14/18 19:15 135/78 (97) 08/14/18 17:56 10.0 08/14/18 17:30 97.3 Non-Rebreather Impression: Primary Impression: Closed left hip fracture Condition: Condition Unchanged Disposition: XFER TO ACUTE CARE HOSPITAL Referrals: [facility], ONC (PCP) Problem Qualifiers Primary Impression: Closed left hip fracture Encounter type: initial encounter Qualified Codes: S72.002A - Fracture of unspecified part of neck of left femur, initial encounter for closed fracture YEN PERALES August 14, 2018 17:42
[2018-08-14 17:59] LABS: PLATELET COUNT, AUTOMATED 209 K/uL (150-450)
--- NOTE | 2018-08-14 18:01 | EKG ---
FACILITY: [facility] PATIENT NAME: RACHEL PEREIRA : [id number] MR: [id number] V: [id number] EXAM DATE: ORDERING PHYSICIAN: YEN PERALES TECHNOLOGIST: [place]MA Test Reason : FALL Blood Pressure : / mmHG Vent. Rate : 081 BPM Atrial Rate : 081 BPM P-R Int : 118 ms QRS Dur : 086 ms QT Int : 382 ms P-R-T Axes : 063 097 012 degrees QTc Int : 443 ms Normal sinus rhythm Normal ECG When compared with ECG of 01-JUN-2018 14:20, T wave inversion no longer evident in Anterior leads Confirmed by Dwain Salcido ([id number]) on 08/14/2018 7:48:01 PM Referred By: MAY Confirmed By:Dwain Gilliam
[2018-08-14 18:04] LABS: INR 0.94
--- NOTE | 2018-08-14 18:40 | RADIOLOGY IMAGING REPORT ---
FACILITY: [facility] [place] PATIENT NAME: Nate Mathew : 1940 MR: [id number] V: [id number] EXAM DATE: ORDERING PHYSICIAN: YEN PERALES TECHNOLOGIST: [facility] Patient: Nate Mathew : 1940 Visit/Account:[id number] Date of Sevice: 08/14/2018 Single view of the chest, x-ray left hip Indication: Fall, left hip pain. Comparison: X-ray examination of the chest June 01, 2018 Findings: Heart size within normal limits. There is pulmonary hyperinflation with relative lucency in the apices and redemonstration of linear c oarsening of the interstitium within the bases indicative of interstitial scarring. Stable subtle alfonso nting of the right costophrenic sulcus is noted. 2 views left hip are submitted. Severe degenerative changes seen left hip with narrowing, increased s clerosis and spurring. Bony proliferative changes are seen at the head neck junction. Subtle lucencies traverse the intertrochanteric left femur suspicious for nondisplaced fracture. Prostatic beads are noted. Moderate degenerative change right hip. IMPRESSION: 1. Pulmonary parenchymal changes from emphysema with bibasilar scarring. No evidence of acute finding 2. Findings indicative of nondisplaced left intertrochanteric fracture. Report Dictated By: Ankit Fitzgerald MD at 08/14/2018 6:32 PM Report E-Signed By: Ankit Fitzgerald MD at 08/14/2018 6:37 PM WSN:[id number]
--- NOTE | 2018-08-14 18:41 | RADIOLOGY IMAGING REPORT ---
[place] [facility] [place] NAME: Nate Mathew : 1940 MR: [id number] V: [id number] EXAM DATE: ORDERING PHYSICIAN: YEN PERALES TECHNOLOGIST: Location: [facility] [place] Patient: Nate Mathew : 1940 Visit/Account:[id number] Date of Sevice: 08/14/2018 Single view of the chest, x-ray left hip Indication: Fall, left hip pain. Comparison: X-ray examination of the chest June 01, 2018 Findings: Heart size within normal limits. There is pulmonary hyperinflation with relative lucency in the apices and redemonstration of linear c oarsening of the interstitium within the bases indicative of interstitial scarring. Stable subtle alfonso nting of the right costophrenic sulcus is noted. 2 views left hip are submitted. Severe degenerative changes seen left hip with narrowing, increased s clerosis and spurring. Bony proliferative changes are seen at the head neck junction. Subtle lucencies traverse the intertrochanteric left femur suspicious for nondisplaced fracture. Prostatic beads are noted. Moderate degenerative change right hip. IMPRESSION: 1. Pulmonary parenchymal changes from emphysema with bibasilar scarring. No evidence of acute finding 2. Findings indicative of nondisplaced left intertrochanteric fracture. Report Dictated By: Ankit Fitzgerald MD at 08/14/2018 6:32 PM Report E-Signed By: Ankit Fitzgerald MD at 08/14/2018 6:37 PM WSN:[id number]
[2018-08-14] MEDS ORDERED: fentaNYL CITR 100 MCG/2 ML AMP IVP ONE ×2 (19:35→21:15)
[2018-08-14 21:15] VITALS: BP 131/73
== END 2018-08-14 21:31 | disposition short-term general hospital (02) ==
LOC: ER 17:41
DX: S72.002A Fracture of unspecified part of neck of left femur, initial encounter for closed fracture (principal); I10 Essential (primary) hypertension
CPT/HCPCS: 71045; 73502; 81001; 84484; 85025; 85610; 85730; 93005; 96374; 96376; 99285; J3010; 82040; 82247; 82310; 82374; 82435; 82565; 82947; 84075; 84132; 84155; 84295; 84450; 84460; 84520

== ENCOUNTER → 2018-08-14 | Outpatient (CLI) | payer MEDICARE, BC ==
[~2018-08-14] MED LIST changes: +BUDE0.5A6 IH; +FLUT16SP19 NS; +FORM20VI IH; +MELA3TAB31 PO; +POLY17PO25 PO; +POLY1DRO10 OP; +SULF-198 PO; +VIT-9 PO; +VITA100T PO
== END ==
LOC: AMB 21:05
DX: S72.92XA Unspecified fracture of left femur, initial encounter for closed fracture (principal)
CPT/HCPCS: A0425; A0426

== ENCOUNTER → 2018-08-14 | Outpatient (CLI) | payer MEDICARE, BC | LOC: AMB 16:44 | PROVIDERS: ATTEND Nurse Practitioner | DX: M25.552 Pain in left hip (principal); M79.605 Pain in left leg; W18.30XA Fall on same level, unspecified, initial encounter; R06.00 Dyspnea, unspecified | CPT/HCPCS: A0425; A0427 ==